=== PATIENT | female | born 1965 | race Caucasian/White ===

== ENCOUNTER 2020-09-17 11:40 | Outpatient (REF) | payer MEDICARE, MEDICAID, SELFPAY | END 2020-09-17 11:41 | disposition home or self-care (01) | LOC: HO.LNP 11:40 | PROVIDERS: Visit Provider Hospitalist | DX: Z20.828 Contact with and (suspected) exposure to other viral communicable diseases (principal); R07.0 Pain in throat; R05 Cough | CPT/HCPCS: 87635 ==

== ENCOUNTER 2020-12-12 10:58 | Outpatient (REF) | payer MEDICARE, MEDICAID, SELFPAY ==
[2020-12-13 10:31] LABS: BV Int Neg Control Negative (Negative); BV Int Pos Control Positive (Positive)
== END 2020-12-12 10:59 | disposition home or self-care (01) ==
LOC: HO.LAB 10:58
PROVIDERS: PCP Internal Medicine; Visit Provider Advanced Practice Midwife
DX: N89.8 Other specified noninflammatory disorders of vagina (principal)
CPT/HCPCS: 87480; 87510; 87660; 99202

== ENCOUNTER 2020-12-21 11:19 | Outpatient (REF) | payer MEDICARE, MEDICAID, SELFPAY ==
[2020-12-21 14:44] LABS: Alanine Aminotransferase 98 U/L (0-31); Albumin Level 4.3 g/dL (3.5-5.0); Alkaline Phosphatase 82 U/L (39-117); Anion Gap 15 (12-20); Aspartate Amino Transferase 53 U/L (5-31); Bilirubin Direct 0.2 mg/dL (0.0-0.5); Bilirubin Total 0.4 mg/dL (0.0-1.0); Blood Urea Nitrogen 14 mg/dL (9-16); Carbon Dioxide 28 mmol/L (22-29); Chloride 102 mmol/L (96-108); Estimated Glomerular Filt Rate > 60; Glucose Random 108 mg/dL (60-115); Potassium 4.1 mmol/l (3.3-5.1); Sodium 141 mmol/L (135-145); Total Protein 7.8 g/dL (6.5-8.0)
[2020-12-21 14:51] LABS: TSH reflex Free T4 1.87 mIU/mL (0.32-4.0)
[2020-12-23 04:01] LABS: HBS Num1 0.81 mIU/mL (0-7.99); HIV AB/AG Nonreactive (Nonreactive); Hepatitis B Core Antibody Nonreactive (Nonreactive); Hepatitis B Surface Antigen Negative (Negative); ~HepC Num1 0.08 S/CO (0.00-0.79); ~Hepatitis B Surface Antibody NONREACTIVE (Nonreactive); ~Hepatitis C Antibody Nonreactive (Nonreactive)
[2020-12-23 04:15] LABS: Hepatitis A Antibody IgM 0.11 Index (0-0.79); ~Hepatitis A Antibody IgM Nonreactive (Nonreactive)
== END 2020-12-21 11:20 | disposition home or self-care (01) ==
LOC: HO.HMGCLDS 11:19
PROVIDERS: PCP Internal Medicine; Visit Provider Internal Medicine
DX: E03.8 Other specified hypothyroidism (principal); E13.9 Other specified diabetes mellitus without complications; F41.1 Generalized anxiety disorder; J30.9 Allergic rhinitis, unspecified; Z20.2 Contact with and (suspected) exposure to infections with a predominantly sexual mode of transmission; Z79.4 Long term (current) use of insulin
CPT/HCPCS: 36415; 80048; 80076; 84443; 86704; 86706; 86709; 86803; 87340; 87389

== ENCOUNTER → 2021-01-16 10:18 | Outpatient (BNVA) | payer MEDICARE, MEDICAID, SELFPAY | PROVIDERS: PCP Internal Medicine; Visit Provider Advanced Practice Midwife | DX: L29.2 Pruritus vulvae (principal) | CPT/HCPCS: 99212 ==

== ENCOUNTER 2021-02-11 16:48 | Emergency (ER) | payer MEDICARE, MEDICAID, SELFPAY ==
--- NOTE | ~2021-02-11 | XR_ITS ---
EXAMINATION: XR CHEST CLINICAL INFORMATION: Chest pain COMPARISON: None TECHNIQUE: Frontal portable view of the chest was obtained. 6:23 PM FINDINGS: No significant abnormality is noted involving the heart, lungs, mediastinum, bony thorax or soft tissues. XR/XR chest 1V IMPRESSION: Unremarkable examination.
--- NOTE | 2021-02-11 16:51 | ECG_ITS ---
Test Reason : CP Blood Pressure : / mmHG Vent. Rate : 066 BPM Atrial Rate : 066 BPM P-R Int : 164 ms QRS Dur : 086 ms QT Int : 414 ms P-R-T Axes : 062 -31 015 degrees QTc Int : 434 ms Normal sinus rhythm with sinus arrhythmia Left axis deviation Abnormal ECG When compared with ECG of 13-MAR-2018 02:49, No significant change was found Referred By: Uriel Jhaveri Electronically Signed By:RICKY FLORES MD
[2021-02-11 17:04] VITALS: BP 136/91; PULSE 71; RESP 18; TEMP 36.4; O2SAT 95; BMI 34.0
[2021-02-11 18:04] VITALS: BP 129/85; PULSE 61; RESP 20; TEMP 36.8; O2SAT 96
[2021-02-11 18:30] LABS: MANUAL DIFF FLAG NO
--- NOTE | 2021-02-11 18:31 | ED.CHESTPAIN ---
HPI - Chest Pain General Chief Complaint: Chest Pain Stated Complaint: Chest pain Time Seen by Provider: 02/11/21 18:08 Source: patient Mode of arrival: ambulatory Limitations: no limitations History of Present Illness HPI narrative: Patient presents to the ED for epigastric/under left breast pain since last Thursday night. Patient describes pain as acid burning sensation. Patient states no shortness of breath, swelling of lower extremities, calf pain, coughing up blood, fever, or chills. Related Data Home Medications Medication Instructions Recorded Confirmed clotrimazole-betamethasone 1 1 applic TOPICAL BID 09/17/20 12/19/20 %-0.05 % topical cream escitalopram oxalate 10 mg tablet 3 mg PO Q OTHER DAY PRN 09/17/20 12/19/20 ketoconazole 2 % topical cream applic TOPICAL 09/17/20 12/19/20 levothyroxine 75 mcg tablet 75 mcg PO DAILY 09/17/20 12/19/20 montelukast 10 mg tablet 10 mg PO DAILY 09/17/20 12/19/20 omeprazole 20 mg capsule,delayed 20 mg PO DAILY 09/17/20 12/19/20 release oxybutynin chloride 10 mg 10 mg PO DAILY 09/17/20 12/19/20 tablet,extended release 24 hr Previous Rx's Medication Instructions Recorded albuterol sulfate 90 mcg/actuation 1 inh INHALATION Q6H PRN #18 g 10/05/20 aerosol inhaler cetirizine 5 mg-pseudoephedrine ER 1 tab PO Q12H PRN #60 tab 10/10/20 120 mg tablet,extended release,12hr fluticasone propionate 50 2 spray INTRANASAL DAILY #9.9 ml 10/10/20 mcg/actuation nasal spray,suspension oxymetazoline 0.05 % nasal mist 2 spray INTRANASAL Q12H PRN 3 Days 10/10/20 #15 ml loratadine 10 mg tablet 10 mg PO DAILY #30 tab 01/10/21 famotidine [Pepcid] 20 mg PO BID 15 Days #30 tab 02/11/21 Allergies Allergy/AdvReac Type Severity Reaction Status Date / Time paroxetine [From PAXIL] Allergy Severe BAD Verified 01/25/21 09:03 REACTION - HALLUCINATING varenicline [From CHANTIX] Allergy Severe BAD Verified 01/25/21 09:03 REACTION - HALLUCINATING, redness and itching Review of Systems Review of Systems: Yes all other systems are reviewed and are negative Constitutional: Constitutional: Reports as per HPI and Reports no additional constitutional complaints Eyes: Eyes: Reports as per HPI and Reports no additional eye complaints ENT: Reports system reviewed and no additional complaints, except as documented and Reports as per HPI Cardiovascular: Cardiovascular: Reports as per HPI and Reports no additional cardiovascular complaints Respiratory: Respiratory: Reports as per HPI and Reports no additional respiratory complaints Gastrointestinal: Gastrointestinal: Reports no additional gastrointestinal complaints and Reports abdominal pain (Epigastric) Genitourinary: Genitourinary: Reports no additional female genitourinary complaints and Reports as per HPI Musculoskeletal: Musculoskeletal: Reports no additional musculoskeletal complaints and Reports as per HPI Neurologic: Reports system reviewed and no additional complaints, except as documented and Reports as per HPI Psychiatric: Psychiatric: Reports no additional psychiatric complaints and Reports as per HPI [facility] Past Medical History Surgical History History of elbow surgery History of tubal ligation Hx of cholecystectomy Family History Family History Mother Brain aneurysm Maternal Aunt Lung cancer Maternal Uncle Cancer Father Cancer of prostate Social History Social History Alcohol intake: never Smoking Status: Former smoker Smoked in Last 30 Days: No Use of substances other than those prescribed or required for medical reasons: No Advance Directives: No Advance Directives Information Provided: No Physical Exam Vital Signs: Vital Signs: Last Vital Signs Temp 98.5 F 02/11/21 20:23 Pulse 66 02/11/21 20:23 Resp 16 02/11/21 20:23 BP 125/87 02/11/21 20:23 Pulse Ox 96 02/11/21 20:23 Body Mass Index 34.0 Const: General: cooperative, healthy appearing, comfortable, no acute distress, well developed and alert Orientation/consciousness: patient oriented x3 HENMT: Head: Yes normal to inspection, Yes No palpable skull fracture present, Yes normocephalic and Yes atraumatic Eyes: General: appearance normal, both eyes and all related structures Neck: Neck: Yes normal visual inspection, Yes full ROM, Yes no lymphadenopathy, Yes no meningeal signs, Yes trachea midline, Yes supple and No tender Chest: Other: Both breast negative for swelling, redness, nipple discharge, or axillary lymphadenopathy. Chest palpation & inspection: normal inspection of the chest and normal palpation of entire chest wall Resp: Effort & Inspection: normal respiratory effort and able to speak in complete sentences Auscultation: clear to auscultation bilaterally Cardio: Jugular venous distension: no JVD Heart sounds: S1 normal heart sound present and S2 normal heart sound present GI: Inspection: Yes normal to inspection and No abdominal wall ecchymosis Palpation (GI): Soft to palpation, not firm, Tenderness to palpation present (GI) (Mild) in the epigastrum; not at McBurney's point, not periumbilically, not suprapubicly, Oshea's sign negative, obturator sign negative, psoas sign negative, with no rebound tenderness and Rovsing's sign negative, no guarding and not rigid : General: No CVA tenderness and Yes no CVA tenderness Back/Spine/Pelvis: Back: no CVA tenderness, No CVA tenderness and No back tenderness Skin: General skin exam: no rashes or lesions noted and elasticity normal Neuro: General: patient oriented x3, no meningeal signs and CN's II-XI intact bilaterally Course Course Course Narrative: History physical exam sounds like GERD exacerbation, but due to age patient will have a lease EKG 1 troponin for epigastric pain that started since last Thursday. Patient will be given GI cocktail Reevaluation(s) Reevaluation #1: Patient EKG normal and no new changes. Patient troponin came back negative after 4 days of epigastric pain. Patient states epigastric pain resolved after receiving GI cocktail. Chest x-ray is normal. Patient is taking omeprazole. Patient will be prescribed Pepcid. D-dimer negative. Wells score 0. Chest x-ray came back normal. Patient labs came at baseline. Slight elevation in liver enzymes due to fatty liver. Time: 21:04 MDM - Chest Pain MDM Narrative Medical decision making narrative: GERD Lab Data Result diagrams: 02/11/21 18:15 02/11/21 18:51 Labs: Lab Results 02/11/21 02/11/21 02/11/21 Range/Units 18:15 18:15 18:15 WBC 10.1 (4.8-10.8) X10*3/uL RBC 5.22 (4.20-5.50) X10*6/uL Hgb 14.3 (12.0-16.0) g/dl Hct 44.1 (37-47) % MCV 84.5 (80-98) fL MCH 27.4 (27.0-33.0) pg MCHC 32.4 (31.0-35.0) g/dl RDW 13.3 (11.0-16.0) % Plt Count 242 (160-400) X10*3/uL MPV 9.4 (9.4-12.3) fL Immature Gran % (Auto) 0.3 (0.0-0.4) % Neut % (Auto) 52.6 (45-73) % Lymph % (Auto) 37.7 (20-40) % [place] % (Auto) 7.1 (2-11) % Eos % (Auto) 1.7 (0-4) % Baso % (Auto) 0.6 (0-2) % Lymph # (Auto) 3.8 (1.2-4.9) X10*3/uL [place] # (Auto) 0.7 (0.1-1.2) X10*3/uL Eos # (Auto) 0.2 (0.0-0.4) X10*3/uL Baso # (Auto) 0.1 (0.0-0.2) X10*3/uL Abs Immat Gran (auto) 0.03 (0.00-0.03) X10*3/uL Absolute Neuts (auto) 5.3 (2.0-8.3) X10*3/uL Absolute Nucleated RBC 0.000 (0.0-0.012) X10*3/uL Nucleated RBC % (auto) 0.0 (0.0-0.2) /100WBC PT (10.8-13.0) SEC INR (0.9-1.1) APTT (24.1-38.0) SEC D-Dimer NG/ML Hold Blue Top SEE NOTE Sodium (135-145) mmol/L Potassium (3.3-5.1) mmol/L Chloride (96-108) mmol/L Carbon Dioxide (22-29) mmol/L Anion Gap (12-20) BUN (9-16) mg/dL Creatinine (0.5-1.4) mg/dL Estim Creat Clear Calc Estimated GFR Random Glucose (60-115) mg/dL Calcium (8.4-10.2) mg/dL Total Bilirubin (0.0-1.0) mg/dL Direct Bilirubin (0.0-0.5) mg/dL AST (5-31) U/L ALT (0-31) U/L Alkaline Phosphatase (39-117) U/L Troponin I High Sens < 3.5 (<3.5-17.0) ng/L Total Protein (6.5-8.0) g/dL Albumin (3.5-5.0) g/dL Lipase (8-78) U/L Urine Color Urine Appearance Urine pH (5.0-8.0) Ur Specific [place] (1.005-1.025) Urine Protein (NEG-TRACE) MG/DL Urine Glucose (UA) (NEG) MG/DL Urine Ketones (NEG) MG/DL Urine Blood (NEG) Urine Nitrite (NEG) Ur Leukocyte Esterase (NEG) 02/11/21 02/11/21 02/11/21 Range/Units 18:51 18:51 19:21 WBC (4.8-10.8) X10*3/uL RBC (4.20-5.50) X10*6/uL Hgb (12.0-16.0) g/dl Hct (37-47) % MCV (80-98) fL MCH (27.0-33.0) pg MCHC (31.0-35.0) g/dl RDW (11.0-16.0) % Plt Count (160-400) X10*3/uL MPV (9.4-12.3) fL Immature Gran % (Auto) (0.0-0.4) % Neut % (Auto) (45-73) % Lymph % (Auto) (20-40) % [place] % (Auto) (2-11) % Eos % (Auto) (0-4) % Baso % (Auto) (0-2) % Lymph # (Auto) (1.2-4.9) X10*3/uL [place] # (Auto) (0.1-1.2) X10*3/uL Eos # (Auto) (0.0-0.4) X10*3/uL Baso # (Auto) (0.0-0.2) X10*3/uL Abs Immat Gran (auto) (0.00-0.03) X10*3/uL Absolute Neuts (auto) (2.0-8.3) X10*3/uL Absolute Nucleated RBC (0.0-0.012) X10*3/uL Nucleated RBC % (auto) (0.0-0.2) /100WBC PT 12.1 (10.8-13.0) SEC INR 1.0 (0.9-1.1) APTT 32.8 (24.1-38.0) SEC D-Dimer < 200 NG/ML Hold Blue Top Sodium 137 (135-145) mmol/L Potassium 4.0 (3.3-5.1) mmol/L Chloride 103 (96-108) mmol/L Carbon Dioxide 24 (22-29) mmol/L Anion Gap 14 (12-20) BUN 15 (9-16) mg/dL Creatinine 0.82 (0.5-1.4) mg/dL Estim Creat Clear Calc 95.5 Estimated GFR > 60 Random Glucose 100 (60-115) mg/dL Calcium 9.4 (8.4-10.2) mg/dL Total Bilirubin 0.6 (0.0-1.0) mg/dL Direct Bilirubin 0.2 (0.0-0.5) mg/dL AST 103 H (5-31) U/L ALT 119 H (0-31) U/L Alkaline Phosphatase 84 (39-117) U/L Troponin I High Sens (<3.5-17.0) ng/L Total Protein 7.4 (6.5-8.0) g/dL Albumin 4.1 (3.5-5.0) g/dL Lipase 31 (8-78) U/L Urine Color YELLOW Urine Appearance CLEAR Urine pH 6.0 (5.0-8.0) Ur Specific [place] 1.025 (1.005-1.025) Urine Protein NEG (NEG-TRACE) MG/DL Urine Glucose (UA) NEG (NEG) MG/DL Urine Ketones NEG (NEG) MG/DL Urine Blood NEG (NEG) Urine Nitrite NEG (NEG) Ur Leukocyte Esterase NEG (NEG) ECG Data ECG #1: Interpretation: Normal sinus rhythm. Ventricular rate 66. Pr interval 164. QRS 86. QTC 434. Negative STEMI Discharge Plan Discharge Clinical Impression: GERD (gastroesophageal reflux disease) Patient Disposition: Home, Self-Care Instructions: Gastroesophageal Reflux Disease (ED) Additional Instructions: Return to the ED immediately for any worsening abdominal pain, radiating chest pain, shortness of breath, coughing up blood, fever, chills, dysuria, hematuria, flank pain, weakness, dizziness, passing out, chest pain on inspiration, swelling of lower extremities, calf pain, or any other concerning symptoms. Prescriptions: New famotidine [Pepcid] 20 mg tablet 20 mg PO BID 15 Days Qty: 30 RF: 0 No Action loratadine 10 mg tablet 10 mg PO DAILY Qty: 30 RF: 2 montelukast 10 mg tablet 10 mg PO DAILY RF: 0 omeprazole 20 mg capsule,delayed release(DR/EC) 20 mg PO DAILY RF: 0 oxybutynin chloride 10 mg tablet extended release 24hr 10 mg PO DAILY RF: 0 escitalopram oxalate 10 mg tablet 3 mg PO Q OTHER DAY PRNRF: 0 levothyroxine 75 mcg tablet 75 mcg PO DAILY RF: 0 ketoconazole 2 % cream topical RF: 0 clotrimazole-betamethasone 1-0.05 % cream 1 applic topical BID RF: 0 albuterol sulfate [Ventolin HFA] 90 mcg/actuation HFA aerosol inhaler 1 inh inhalation Q6H PRN (Reason: shortness of breath or wheezing) Qty: 18 RF: 2 cetirizine-pseudoephedrine [Zyrtec-D] 5-120 mg tablet extended release 12 hr 1 tab PO Q12H PRN (Reason: allergy symptoms) Qty: 60 RF: 0 Afrin (oxymetazoline) 0.05 % mist 2 spray intranasal Q12H PRN (Reason: nasal congestion) 3 Days Qty: 15 RF: 0 fluticasone propionate [Flonase Allergy Relief] 50 mcg/actuation spray,suspension 2 spray intranasal DAILY Qty: 9.9 RF: 0 Referrals: David Diaz MD [Primary Care Provider] - 2 days (GERD exacerbation. EKG shows no new changes. Troponin negative) Interventions: ED Discharge Assessment Last Done: 02/11/21 21:16 Discharge Date/Time: 02/11/21 21:16 Print Language: Macedonian
[2021-02-11 18:32] LABS: Basophils Absolute Auto 0.1 X10*3/uL (0.0-0.2); Basophils Percent Auto 0.6 % (0-2); Eosinophils Absolute Auto 0.2 X10*3/uL (0.0-0.4); Eosinophils Percent Auto 1.7 % (0-4); Hematocrit 44.1 % (37-47); Hemoglobin 14.3 g/dl (12.0-16.0); Imm Gran Abs Auto 0.03 X10*3/uL (0.00-0.03); Imm Gran Pct Auto 0.3 % (0.0-0.4); Lymphocytes Absolute Auto 3.8 X10*3/uL (1.2-4.9); Lymphocytes Percent Auto 37.7 % (20-40); Mean Corpuscular HGB Conc 32.4 g/dl (31.0-35.0); Mean Corpuscular Hemoglobin 27.4 pg (27.0-33.0); Mean Corpuscular Volume 84.5 fL (80-98); Mean Platelet Volume 9.4 fL (9.4-12.3); Monocytes Absolute Auto 0.7 X10*3/uL (0.1-1.2); Monocytes Percent Auto 7.1 % (2-11); Neutrophils Absolute Auto 5.3 X10*3/uL (2.0-8.3); Neutrophils Percent Auto 52.6 % (45-73); Platelet Count 242 X10*3/uL (160-400); Red Blood Count 5.22 X10*6/uL (4.20-5.50); Red Cell Distribution Width 13.3 % (11.0-16.0); White Blood Count 10.1 X10*3/uL (4.8-10.8)
[2021-02-11] MEDS: Famotidine/PF 20 MG/2 ML VIAL IVPUSH (18:43)
[2021-02-11] MEDS: Lidocaine HCl Viscous 2 % 15 ML SOLUTION MUCOUS MEM (18:44)
[2021-02-11] MEDS: Magnesium Hydrox/Alum Hydrox 30 ML ORAL.SUSP PO (18:44)
[2021-02-11] MEDS: PHENobarb/Hyoscy/Atropine/Scop 10 ML ELIXIR PO (18:44)
[2021-02-11 19:07] LABS: Troponin-I High Sensitivity < 3.5 ng/L (<3.5-17.0)
[2021-02-11 19:15] LABS: Prothrombin Time 12.1 SEC (10.8-13.0)
[2021-02-11 19:18] LABS: Partial Thromboplastin Time 32.8 SEC (24.1-38.0)
[2021-02-11 19:20] LABS: D Dimer < 200 NG/ML
[2021-02-11 19:30] LABS: Glucose Urine UA NEG (NEG); Leukocyte Esterase Urine NEG (NEG); Nitrite Urine NEG (NEG); Specific Gravity - Urine 1.025 (1.005-1.025); Urine Blood NEG (NEG); Urine Ketones NEG (NEG); Urine Protein NEG (NEG-TRACE)
[2021-02-11 19:37] LABS: Alanine Aminotransferase 119 U/L (0-31); Albumin Level 4.1 g/dL (3.5-5.0); Alkaline Phosphatase 84 U/L (39-117); Anion Gap 14 (12-20); Aspartate Amino Transferase 103 U/L (5-31); Bilirubin Direct 0.2 mg/dL (0.0-0.5); Bilirubin Total 0.6 mg/dL (0.0-1.0); Blood Urea Nitrogen 15 mg/dL (9-16); Calcium 9.4 mg/dL (8.4-10.2); Carbon Dioxide 24 mmol/L (22-29); Chloride 103 mmol/L (96-108); Creatinine Clr Calc Pharmacy 95.5; Estimated Glomerular Filt Rate > 60; Glucose Random 100 mg/dL (60-115); Lipase 31 U/L (8-78); Sodium 137 mmol/L (135-145); Total Protein 7.4 g/dL (6.5-8.0)
[2021-02-11 19:39] VITALS: BP 119/53; PULSE 66; RESP 19; TEMP 36.5; O2SAT 95
[2021-02-11 19:51] LABS: Appearance Urine CLEAR; Color Urine YELLOW
[2021-02-11 20:23] VITALS: BP 125/87; PULSE 66; RESP 16; TEMP 36.9; O2SAT 96
[2021-02-11 20:38] VITALS: PULSE 87
== END 2021-02-11 21:16 | disposition home or self-care (01) ==
PROVIDERS: Physician Assistant; Emergency Provider Emergency Medicine; PCP Internal Medicine
DX: K21.9 Gastro-esophageal reflux disease without esophagitis (principal); Z90.49 Acquired absence of other specified parts of digestive tract
CPT/HCPCS: 36415; 71045; 80053; 80076; 81003; 83690; 84484; 85025; 85379; 85610; 85730; 93005; 99285

== ENCOUNTER 2021-05-06 14:51 | Outpatient (REF) | payer MEDICARE, MEDICAID, SELFPAY ==
[2021-05-06 18:08] LABS: Alanine Aminotransferase 159 U/L (0-31); Albumin Level 4.4 g/dL (3.5-5.0); Alkaline Phosphatase 91 U/L (39-117); Aspartate Amino Transferase 140 U/L (5-31); Bilirubin Direct 0.2 mg/dL (0.0-0.5); Bilirubin Total 0.6 mg/dL (0.0-1.0); C Reactive Protein 0.77 mg/dL (< or = 0.50); Gamma Glutamyl Transpeptidase 127 U/L (7-33); Total Protein 7.5 g/dL (6.5-8.0)
[2021-05-06 18:19] LABS: Erythrocyte Sedimentation Rate 13 MM/HR (0-20)
[2021-05-06 18:23] LABS: Ferritin 257 ng/mL (10-250)
[2021-05-08 09:13] LABS: HBS Num1 0.09 mIU/mL (0-7.99); HIV AB/AG Nonreactive (Nonreactive); HIV Num 1 0.07 S/CO (0.00-0.99); Hepatitis A Antibody IgM 0.28 Index (0-0.79); ~Hepatitis A Antibody IgM Nonreactive (Nonreactive); ~Hepatitis B Surface Antibody NONREACTIVE (Nonreactive)
[2021-05-08 09:55] LABS: HBc Num1 0.08 S/CO (0.00-0.79); HBsAGNum1 0.19 S/CO (0.00-0.99); Hepatitis B Core Antibody Nonreactive (Nonreactive); Hepatitis B Surface Antigen Negative (Negative); ~HepC Num1 0.05 S/CO (0.00-0.79); ~Hepatitis C Antibody Nonreactive (Nonreactive)
[2021-05-08 10:52] LABS: Alpha Fetoprotein 2.8 ng/mL
[2021-05-09 08:18] LABS: Mitochondrial Antibodies NEGATIVE (NEGATIVE)
[2021-05-09 19:41] LABS: Ceruloplasmin 31 mg/dL (18-53)
[2021-05-11 10:56] LABS: Smooth Muscle Antibody <20 U (<20)
== END 2021-05-06 14:52 | disposition home or self-care (01) ==
LOC: HO.LAB 14:51
PROVIDERS: PCP Internal Medicine; Visit Provider Nurse Practitioner Family
DX: R79.89 Other specified abnormal findings of blood chemistry (principal); R74.8 Abnormal levels of other serum enzymes
CPT/HCPCS: 36415; 80076; 82105; 82390; 82728; 82977; 85652; 86140; 86255; 86256; 86704; 86706; 86709; 86803; 87340; 87389; 99202

== ENCOUNTER 2021-05-17 08:58 | Outpatient (REF) | payer MEDICARE, MEDICAID, SELFPAY ==
--- NOTE | ~2021-05-17 | FL_ITS ---
EXAMINATION: FL BARIUM SWALLOW CLINICAL INFORMATION: Dysphagia. COMPARISON: None TECHNIQUE: Barium swallow examination is performed using fluoroscopic evaluation in addition to multiple fluoroscopic spot views. The patient is imaged both upright and prone and using both thick and thin sulfate along with effervescent granules. Fluoroscopy time: 1.5 minutes DAP: 13.42 Gycm2 Images: 48 FINDINGS: Following oral administration of thin, thick barium and barium-coated turkey, there is normal propagation of bolus from oral cavity through the pharynx, esophagus into stomach without any evidence of obstruction, narrowing or stricture. The cervical esophageal and gastroesophageal junction is widely patent. Following oral administration of barium-coated turkey as solid food, there is normal oral mastication with normal propagation od bolus from the oral cavity through the pharynx, esophagus into stomach without any obstruction. On placing patient prone lying and oral administration of thin barium, there is good distention of the entire esophagus without any evidence of intraluminal filling defect or extrinsic compression. There is no gastroesophageal reflux or hiatal hernia seen. FL/FL barium swallow IMPRESSION: Unremarkable barium swallow exam.
== END 2021-05-17 08:59 | disposition home or self-care (01) ==
LOC: HO.XRAY 08:58
PROVIDERS: PCP Internal Medicine; Visit Provider Otolaryngology
DX: R13.10 Dysphagia, unspecified (principal)
CPT/HCPCS: 74220

== ENCOUNTER 2021-06-26 09:18 | Outpatient (REF) | payer MEDICARE, MEDICAID, SELFPAY ==
[2021-06-27 10:29] LABS: BV Int Neg Control Negative (Negative); BV Int Pos Control Positive (Positive)
== END 2021-06-26 09:19 | disposition home or self-care (01) ==
LOC: HO.LAB 09:18
PROVIDERS: PCP Internal Medicine; Visit Provider Advanced Practice Midwife
DX: Z01.411 Encounter for gynecological examination (general) (routine) with abnormal findings (principal); N89.8 Other specified noninflammatory disorders of vagina; R21 Rash and other nonspecific skin eruption
CPT/HCPCS: 87480; 87510; 87660

== ENCOUNTER 2021-06-27 09:58 | Outpatient (REF) | payer MEDICARE, MEDICAID, SELFPAY | END 2021-06-27 09:59 | disposition home or self-care (01) | LOC: HO.LAB 09:58 | PROVIDERS: PCP Internal Medicine; Referring Provider Internal Medicine; Visit Provider Surgery | DX: L91.8 Other hypertrophic disorders of the skin (principal) | CPT/HCPCS: 11200; 88304; 88305; 99212 ==

== ENCOUNTER → 2021-07-08 10:18 | Outpatient (BNVA) | payer MEDICARE, MEDICAID, SELFPAY | PROVIDERS: PCP Internal Medicine; Referring Provider Internal Medicine; Visit Provider Nurse Practitioner Family | DX: K59.00 Constipation, unspecified (principal); K75.81 Nonalcoholic steatohepatitis (NASH); K74.60 Unspecified cirrhosis of liver; R79.89 Other specified abnormal findings of blood chemistry | CPT/HCPCS: 99212 ==

== ENCOUNTER 2021-07-24 10:45 | Outpatient (REF) | payer MEDICARE, MEDICAID, SELFPAY ==
--- NOTE | ~2021-07-24 | US_ITS ---
EXAMINATION: US COMPLETE ABDOMEN WITH LIVER ELASTOGRAPHY CLINICAL INFORMATION: Abnormal serum enzymes. COMPARISON: None. TECHNIQUE: Real-time imaging of the abdominal viscera. Noninvasive ultrasound liver fibrosis assessment is performed using Yordan ElastPQ point quantification shear wave elastography (pSWE) with a C5-2 MHz transducer. Multiple elastography samples are obtained. FINDINGS: PANCREAS: The pancreas is partially obscured by overlying gas. ABDOMINAL AORTA: The distal abdominal aorta is not well seen. The proximal and midabdominal aorta is normal caliber. INFERIOR VENA CAVA: Visualized portions are normal. LIVER: The liver demonstrates an enlarged size, normal contour and increased echogenicity. No focal lesion or intrahepatic biliary duct dilatation. The right lobe measures 20.5 cm in length. The left lobe measures 14.9 cm in length. Portal flow is antegrade. Shear wave liver elastography median stiffness is 1.59 m/s (reference: normal median stiffness is 1.3 m/s or less). IQR/median stiffness to assess sampling precision is 0.25 (reference: good quality data set is IQR/median stiffness of 0.15 or less). GALLBLADDER: The gallbladder has been surgically removed. COMMON BILE DUCT: Normal in caliber measuring 0.5 cm in diameter. RIGHT KIDNEY: Normal. No hydronephrosis. No renal calculi or focal parenchymal lesions. The kidney measures 10.6 cm in maximum dimension. LEFT KIDNEY: Normal. No hydronephrosis. No renal calculi or focal parenchymal lesions. The kidney measures 10.0 cm in maximum dimension. SPLEEN: Normal. The spleen measures 9.8 cm in maximum dimension. FREE FLUID: None. US/US abdomen comp w elastography IMPRESSION: 1. Mild hepatic steatosis with mild enlargement. 2. Liver elastography: Median liver stiffness measures 1.59 m/s suggestive of cACLD ruled out. REFERENCE: Society of Radiologists in Ultrasound Liver Stiffness Thresholds (2020): LIVER STIFFNESS THRESHOLDS: *Liver Stiffness equal or less than 1.3 m/s: High probability of being normal. *Liver Stiffness less than 1.7 m/s: In the absence of other known clinical signs, rules out compensated advanced chronic liver disease. *Liver Stiffness 1.7-2.1 m/s: Suggestive of compensated advanced chronic liver disease but need further test for confirmation. *Liver Stiffness over 2.1 m/s: Rules in compensated advanced chronic liver disease. *Liver Stiffness over 2.4 m/s: Suggestive of clinically significant portal hypertension. QUALITY OF DATA SET: *IQR/Median value equal or less than 0.15 implies a quality data set. *IQR/Median value over 0.15 implies a poor quality data set. SIGNIFICANT CHANGE FROM PRIOR EXAM: Significant change if liver stiffness measurement is 10% or greater from prior exam. OTHER CONSIDERATIONS: The stage of liver fibrosis may be overestimated in the setting of acute hepatitis, liver inflammation, elevated liver function tests, hepatic vascular congestion, obstructive cholestasis, non-fasting state, and infiltrative diseases such as amyloidosis and lymphoma. In some patients with NAFLD, the liver stiffness thresholds for compensated advanced chronic liver disease may be lower. In causes other than viral hepatitis and NAFLD, liver stiffness thresholds are not well established.
== END 2021-07-24 10:46 | disposition home or self-care (01) ==
LOC: HO.US 10:45
PROVIDERS: Visit Provider Nurse Practitioner Family
DX: R74.8 Abnormal levels of other serum enzymes (principal)
CPT/HCPCS: 76705; 76981

== ENCOUNTER → 2021-07-25 13:34 | Outpatient (BNVA) | payer MEDICARE, MEDICAID, SELFPAY | PROVIDERS: PCP Internal Medicine; Visit Provider Internal Medicine | DX: J45.20 Mild intermittent asthma, uncomplicated (principal) | CPT/HCPCS: 99212 ==

== ENCOUNTER 2021-08-01 10:44 | Outpatient (REF) | payer MEDICARE, MEDICAID, SELFPAY ==
--- NOTE | 2021-08-01 17:15 | PFT_ITS ---
Forced vital capacity is moderately decreased. FEV1, [id number], and MVV are normal. Post bronchodilator therapy, no change noted. Total lung capacity and residual volume slightly decreased. Diffusion capacity normal. CONCLUSION: A mild degree of restrictive pulmonary disorder. No significant obstructive airway disorder and no response to bronchodilator therapy. MD SUSHIL Tavares/GAMALL / [phone]
== END 2021-08-01 10:45 | disposition home or self-care (01) ==
LOC: HO.RESP 10:44
PROVIDERS: PCP Internal Medicine; Visit Provider Internal Medicine
DX: J45.909 Unspecified asthma, uncomplicated (principal)
CPT/HCPCS: 94060; 94727; 94729

== ENCOUNTER → 2021-08-12 12:50 | Outpatient (BNVA) | payer MEDICARE, MEDICAID, SELFPAY | PROVIDERS: PCP Internal Medicine; Visit Provider Internal Medicine | DX: J30.9 Allergic rhinitis, unspecified (principal); J98.4 Other disorders of lung; G47.30 Sleep apnea, unspecified; E66.9 Obesity, unspecified | CPT/HCPCS: 99212 ==

== ENCOUNTER 2021-08-21 11:33 | Outpatient (REF) | payer MEDICARE, MEDICAID, SELFPAY ==
[2021-08-21 13:44] LABS: Hematocrit 42.8 % (37-47); Hemoglobin 13.7 g/dl (12.0-16.0)
[2021-08-21 14:13] LABS: Alanine Aminotransferase 93 U/L (0-31); Albumin Level 4.1 g/dL (3.5-5.0); Alkaline Phosphatase 90 U/L (39-117); Aspartate Amino Transferase 83 U/L (5-31); Bilirubin Direct 0.2 mg/dL (0.0-0.5); Bilirubin Total 0.3 mg/dL (0.0-1.0)
[2021-08-21 14:34] LABS: Ferritin 173 ng/mL (10-250); TSH reflex Free T4 3.51 uIU/mL (0.32-4.0)
== END 2021-08-21 11:34 | disposition home or self-care (01) ==
LOC: HO.HMGCLDS 11:33
PROVIDERS: PCP Internal Medicine; Visit Provider Internal Medicine
DX: E03.8 Other specified hypothyroidism (principal); N32.9 Bladder disorder, unspecified; R79.89 Other specified abnormal findings of blood chemistry
CPT/HCPCS: 36415; 80076; 82728; 84443; 85014; 85018

== ENCOUNTER 2021-08-29 15:32 | Outpatient (REF) | payer MEDICARE, MEDICAID, SELFPAY ==
--- NOTE | ~2021-08-29 | MM_ITS ---
EXAMINATION: MM SCREENING DIGITAL BREAST TOMOSYNTHESIS, BILATERAL CLINICAL INFORMATION: Screening. Asymptomatic. The lifetime risk of breast cancer based on the Tyrer-Cuzick Model is 6%. COMPARISON: Mammography: 05/22/2020, 03/28/2019, 03/02/2018, 01/18/2016 TECHNIQUE: Digital breast tomosynthesis is performed in both the craniocaudal and mediolateral oblique views along with computer-aided detection (CAD). Synthesized 2D images are generated from the tomosynthesis. Additional left MLO view is provided. FINDINGS: The breasts are heterogeneously dense, which may obscure small masses (ACR BI-RADS breast composition Category c). Fibronodular parenchymal pattern is present with scattered asymmetries similar to prior studies. There is no significant mass or architectural abnormality. No abnormal calcifications. The axilla and skin contours are unremarkable. MM/MM tomosynthesis screening BI IMPRESSION: No significant changes from prior exams. ASSESSMENT: BI-RADS 2: Benign RECOMMENDATION: Routine annual mammography screening. This patient's information was entered into a reminder system with a target due date for their next mammogram.
== END 2021-08-29 15:33 | disposition home or self-care (01) ==
LOC: HO.MAMMO 15:32
PROVIDERS: PCP Internal Medicine; Visit Provider Advanced Practice Midwife
DX: Z12.31 Encounter for screening mammogram for malignant neoplasm of breast (principal)
CPT/HCPCS: 77063; 77067

== ENCOUNTER 2021-12-31 11:13 | Outpatient (REF) | payer MEDICARE, MEDICAID, SELFPAY ==
[2021-12-31 13:03] LABS: Hematocrit 45.1 % (37.0-47.0); Hemoglobin 14.7 g/dl (12.0-16.0); Mean Corpuscular HGB Conc 32.6 g/dl (31.0-35.0); Mean Corpuscular Hemoglobin 27.5 pg (27.0-33.0); Mean Corpuscular Volume 84.3 fL (80.0-98.0); Mean Platelet Volume 9.6 fL (9.4-12.3); Platelet Count 228 X10*3/uL (160-400); Red Blood Count 5.35 X10*6/uL (4.20-5.50); White Blood Count 10.3 X10*3/uL (4.8-10.8)
[2021-12-31 13:34] LABS: Alanine Aminotransferase 99 U/L (0-31); Albumin Level 4.2 g/dL (3.5-5.0); Alkaline Phosphatase 91 U/L (39-117); Anion Gap 12 (12-20); Aspartate Amino Transferase 89 U/L (5-31); Bilirubin Direct 0.3 mg/dL (0.0-0.5); Bilirubin Total 0.6 mg/dL (0.0-1.0); Blood Urea Nitrogen 14 mg/dL (9-16); Calcium 9.6 mg/dL (8.4-10.2); Carbon Dioxide 25 mmol/L (22-29); Chloride 106 mmol/L (96-108); Estimated Glomerular Filt Rate > 60; Glucose Random 174 mg/dL (60-115); Potassium 4.3 mmol/L (3.3-5.1); Sodium 139 mmol/L (135-145); Total Protein 7.6 g/dL (6.5-8.0)
[2021-12-31 13:55] LABS: TSH reflex Free T4 4.69 uIU/mL (0.32-4.0)
[2021-12-31 14:26] LABS: Free T4 (Free Thyroxine) 0.86 ng/dL (0.71-1.85)
[2022-01-04 13:02] LABS: Vitamin D 25-OH, D2 <4 ng/mL; Vitamin D 25-OH, D3 24 ng/mL; Vitamin D 25-OH, Total 24 ng/mL (30-100)
== END 2021-12-31 11:14 | disposition home or self-care (01) ==
LOC: HO.LAB 11:13
PROVIDERS: PCP Internal Medicine; Referring Provider Internal Medicine; Visit Provider Nurse Practitioner Family
DX: K21.9 Gastro-esophageal reflux disease without esophagitis (principal); R79.89 Other specified abnormal findings of blood chemistry; K76.0 Fatty (change of) liver, not elsewhere classified; K58.2 Mixed irritable bowel syndrome; K62.89 Other specified diseases of anus and rectum; E55.9 Vitamin D deficiency, unspecified
CPT/HCPCS: 36415; 80053; 82248; 82306; 84439; 84443; 85027; 99212

== ENCOUNTER 2022-01-11 10:17 | Outpatient (REF) | payer MEDICARE, MEDICAID, SELFPAY ==
[2022-01-11 10:53] LABS: Binax Internal Control QC Valid; Binax Now Covid-19 Ag Negative (Negative); Binax Performed by: HO.BONILM
== END 2022-01-11 10:18 | disposition home or self-care (01) ==
LOC: HO.HMGCLDS 10:17
PROVIDERS: Visit Provider Internal Medicine
DX: Z13.89 Encounter for screening for other disorder (principal)

== ENCOUNTER → 2022-02-10 09:52 | Outpatient (BNVA) | payer MEDICARE, MEDICAID, SELFPAY | PROVIDERS: PCP Internal Medicine; Visit Provider Internal Medicine | DX: J98.4 Other disorders of lung (principal); J30.9 Allergic rhinitis, unspecified; G47.30 Sleep apnea, unspecified | CPT/HCPCS: 99212 ==

== ENCOUNTER → 2022-04-07 10:27 | Outpatient (BNVA) | payer MEDICARE, MEDICAID, SELFPAY | PROVIDERS: PCP Internal Medicine; Referring Provider Internal Medicine; Visit Provider Nurse Practitioner Family | DX: K76.0 Fatty (change of) liver, not elsewhere classified (principal); K58.2 Mixed irritable bowel syndrome; K62.5 Hemorrhage of anus and rectum | CPT/HCPCS: 99212 ==

== ENCOUNTER 2022-05-05 12:01 | Outpatient (REF) | payer MEDICARE, MEDICAID, SELFPAY ==
[2022-05-05 14:26] LABS: TSH reflex Free T4 3.52 uIU/mL (0.32-4.0)
== END 2022-05-05 12:02 | disposition home or self-care (01) ==
LOC: HO.HMGCLDS 12:01
PROVIDERS: PCP Internal Medicine; Visit Provider Internal Medicine
DX: E03.8 Other specified hypothyroidism (principal)
CPT/HCPCS: 36415; 84443

== ENCOUNTER → 2022-05-22 14:24 | Outpatient (BNVA) | payer MEDICARE, MEDICAID, SELFPAY | PROVIDERS: PCP Internal Medicine; Visit Provider Surgery | DX: D17.0 Benign lipomatous neoplasm of skin and subcutaneous tissue of head, face and neck (principal) | CPT/HCPCS: 99212 ==

== ENCOUNTER → 2022-06-20 11:49 | Outpatient (BNVA) | payer MEDICARE, MEDICAID, SELFPAY | PROVIDERS: PCP Internal Medicine; Visit Provider Nurse Practitioner Family | DX: Z01.818 Encounter for other preprocedural examination (principal); K58.2 Mixed irritable bowel syndrome; K76.0 Fatty (change of) liver, not elsewhere classified; R79.89 Other specified abnormal findings of blood chemistry | CPT/HCPCS: 99212 ==

== ENCOUNTER 2022-06-27 13:45 | Outpatient (REF) | payer MEDICARE, MEDICAID, SELFPAY ==
--- NOTE | ~2022-06-27 | US_ITS ---
EXAMINATION: US SOFT TISSUE OF THE NECK CLINICAL INFORMATION: Soft tissue mass posterior neck, possible lipoma. COMPARISON: None TECHNIQUE: Linear transducer grayscale and color Doppler examination of the base of the posterior neck and upper midline back. FINDINGS: No abnormal cystic or solid mass is identified. No edematous change within the soft tissues is seen. No region of abnormal distal sound shadowing. US/US soft tiss head and/or neck IMPRESSION: No ultrasound abnormality in region of patient's lump about the posterior neck/upper back.
== END 2022-06-27 13:46 | disposition home or self-care (01) ==
LOC: HO.HMGCX 13:45
PROVIDERS: Visit Provider Surgery
DX: D17.0 Benign lipomatous neoplasm of skin and subcutaneous tissue of head, face and neck (principal)
CPT/HCPCS: 76536

== ENCOUNTER → 2022-07-02 10:09 | Outpatient (BNVA) | payer MEDICARE, MEDICAID, SELFPAY | PROVIDERS: PCP Internal Medicine; Visit Provider Advanced Practice Midwife | DX: Z01.419 Encounter for gynecological examination (general) (routine) without abnormal findings (principal); N95.1 Menopausal and female climacteric states; R35.0 Frequency of micturition | CPT/HCPCS: 99212 ==

== ENCOUNTER → 2022-07-08 14:53 | Outpatient (BNVA) | payer MEDICARE, MEDICAID, SELFPAY | PROVIDERS: PCP Internal Medicine; Visit Provider Surgery | DX: D17.0 Benign lipomatous neoplasm of skin and subcutaneous tissue of head, face and neck (principal); Z79.899 Other long term (current) drug therapy; Z79.891 Long term (current) use of opiate analgesic | CPT/HCPCS: 99212 ==

== ENCOUNTER → 2022-08-21 10:32 | Outpatient (BNVA) | payer MEDICARE, MEDICAID, SELFPAY | PROVIDERS: PCP Internal Medicine; Visit Provider Internal Medicine | DX: J45.909 Unspecified asthma, uncomplicated (principal); G47.30 Sleep apnea, unspecified; E66.9 Obesity, unspecified; Z68.34 Body mass index [BMI] 34.0-34.9, adult | CPT/HCPCS: 99212 ==

== ENCOUNTER 2022-09-01 11:46 | Outpatient (REF) | payer MEDICARE, MEDICAID, SELFPAY ==
--- NOTE | ~2022-09-01 | MM_ITS ---
EXAMINATION: MM SCREENING DIGITAL BREAST TOMOSYNTHESIS, BILATERAL CLINICAL INFORMATION: Screening. Asymptomatic. The lifetime risk of breast cancer based on the Tyrer-Cuzick Model is 6%. COMPARISON: Mammography: 08/29/2021, 05/22/2020, 03/28/2019 TECHNIQUE: Digital breast tomosynthesis is performed in both the craniocaudal and mediolateral oblique views along with computer-aided detection (CAD). Synthesized 2D images are generated from the tomosynthesis. FINDINGS: The breasts are heterogeneously dense, which may obscure small masses (ACR BI-RADS breast composition Category c). There are no significant masses, abnormal calcifications, or other abnormalities. Parenchymal pattern is similar to prior studies. There is no developing density or architectural abnormality. The axilla and skin contours are unremarkable. No significant changes. MM/MM tomosynthesis screening BI IMPRESSION: No mammographic evidence of malignancy. ASSESSMENT: BI-RADS 1: Negative RECOMMENDATION: Routine annual mammography screening. This patient's information was entered into a reminder system with a target due date for their next mammogram.
== END 2022-09-01 11:47 | disposition home or self-care (01) ==
LOC: HO.MAMMO 11:46
PROVIDERS: PCP Internal Medicine; Visit Provider Internal Medicine
DX: Z12.31 Encounter for screening mammogram for malignant neoplasm of breast (principal)
CPT/HCPCS: 77063; 77067

== ENCOUNTER 2022-10-08 11:12 | Outpatient (REF) | payer MEDICARE, MEDICAID, SELFPAY ==
[2022-10-08 13:51] LABS: MANUAL DIFF FLAG NO
[2022-10-08 13:59] LABS: Basophils Absolute Auto 0.1 X10*3/uL (0.0-0.2); Eosinophils Absolute Auto 0.2 X10*3/uL (0.0-0.4); Eosinophils Percent Auto 2.6 % (0-4); Hematocrit 45.5 % (37.0-47.0); Hemoglobin 14.9 g/dl (12.0-16.0); Imm Gran Abs Auto 0.02 X10*3/uL (0.00-0.03); Imm Gran Pct Auto 0.2 % (0.0-0.4); Lymphocytes Absolute Auto 3.7 X10*3/uL (1.2-4.9); Lymphocytes Percent Auto 46.2 % (20-40); Mean Corpuscular HGB Conc 32.7 g/dl (31.0-35.0); Mean Corpuscular Hemoglobin 27.7 pg (27.0-33.0); Mean Corpuscular Volume 84.7 fL (80.0-98.0); Monocytes Absolute Auto 0.5 X10*3/uL (0.1-1.2); Monocytes Percent Auto 5.7 % (2-11); Neutrophils Absolute Auto 3.6 x10*3/uL (2.0-8.3); Neutrophils Percent Auto 44.3 % (45-73); Platelet Count 255 X10*3/uL (160-400); Red Blood Count 5.37 X10*6/uL (4.20-5.50); Red Cell Distribution Width 13.5 % (11.0-16.0)
[2022-10-08 14:43] LABS: Alanine Aminotransferase 95 U/L (0-31); Albumin Level 4.3 g/dL (3.5-5.0); Alkaline Phosphatase 73 U/L (39-117); Anion Gap 15 (12-20); Aspartate Amino Transferase 55 U/L (5-31); Bilirubin Total 0.6 mg/dL (0.0-1.0); Blood Urea Nitrogen 14 mg/dL (9-16); Carbon Dioxide 25 mmol/L (22-29); Chloride 107 mmol/L (96-108); Estimated Glomerular Filt Rate > 60; Glucose Random 133 mg/dL (60-115); Potassium 4.6 mmol/L (3.3-5.1); Sodium 142 mmol/L (135-145); TSH reflex Free T4 3.22 uIU/mL (0.32-4.0); Total Protein 7.7 g/dL (6.5-8.0)
== END 2022-10-08 11:13 | disposition home or self-care (01) ==
LOC: HO.HMGCLDS 11:12
PROVIDERS: PCP Internal Medicine; Visit Provider Internal Medicine
DX: F41.1 Generalized anxiety disorder (principal); K76.0 Fatty (change of) liver, not elsewhere classified; N32.81 Overactive bladder; R10.13 Epigastric pain; R79.89 Other specified abnormal findings of blood chemistry; Z91.09 Other allergy status, other than to drugs and biological substances
CPT/HCPCS: 36415; 80053; 84443; 85025

== ENCOUNTER 2022-10-17 12:16 | Outpatient (REF) | payer MEDICARE, MEDICAID, SELFPAY ==
[2022-10-17 14:16] LABS: Syphilis Screen Nonreactive (Nonreactive)
[2022-10-17 14:28] LABS: HBsAGNum1 0.38 S/CO (0.00-0.99); HIV AB/AG Nonreactive (Nonreactive); HIV Num 1 0.07 S/CO (0.00-0.99); Hepatitis B Surface Antigen Negative (Negative); ~HepC Num1 0.06 S/CO (0.00-0.79); ~Hepatitis C Antibody Nonreactive (Nonreactive)
[2022-10-17 16:10] LABS: CT PCR NOT DETECTED (Not Detect.); NG PCR NOT DETECTED (Not Detect.)
[2022-10-18 15:01] LABS: BV Int Neg Control Negative (Negative); BV Int Pos Control Positive (Positive)
== END 2022-10-17 12:17 | disposition home or self-care (01) ==
LOC: HO.LNP 12:16
PROVIDERS: Visit Provider Advanced Practice Midwife
DX: Z11.3 Encounter for screening for infections with a predominantly sexual mode of transmission (principal); Z11.4 Encounter for screening for human immunodeficiency virus [HIV]; L85.3 Xerosis cutis; R21 Rash and other nonspecific skin eruption; N32.9 Bladder disorder, unspecified; Z71.9 Counseling, unspecified
CPT/HCPCS: 86780; 86803; 87340; 87389; 87480; 87491; 87510; 87591; 87660; 99212

== ENCOUNTER 2022-11-28 07:18 | Day surgery (SDC) | payer MEDICARE, MEDICAID, SELFPAY ==
[2022-11-21 15:19] VITALS: BMI 34.3
--- NOTE | 2022-11-27 12:26 | HO.ANESPROP2 ---
Documented by User: Elisa Gonzalez NP 11/27/22 12:28 HPI - Anesthesia Eval Consult details Narrative: 57yo F for Colonoscopy PMFSH Active Problems Active Problems: All Active Problems (Updated 11/21/22 @ 15:19 by Mendy Cummings, TOD) Encounter for screening laboratory testing for COVID-19 virus (Acute) Acute sinusitis (Acute) Allergic rhinitis (Acute) Other specified hypothyroidism (Acute) Exposure to STD (Acute) Anxiety, generalized (Acute) Fatty liver (Acute) Itching of vulva (Acute) Nasal erythema (Acute) LFT elevation (Acute) Environmental allergies (Acute) Asthma, mild (Acute) Obesity (Acute) Bladder disorder (Acute) Dyspepsia (Acute) Sleep apnea with use of continuous positive airway pressure (CPAP) (Acute) Acute sinusitis (Acute) Difficulty swallowing (Acute) Disturbance of smell and taste (Acute) Abscess (Acute) Skin tag (Acute) Medicare annual wellness visit, initial (Acute) Upper respiratory tract infection (Acute) Obesity due to excess calories (Acute) Acute pharyngitis (Acute) Lipoma of neck (Acute) GERD (gastroesophageal reflux disease) (Acute) Medicare annual wellness visit, subsequent (Acute) URI with cough and congestion (Acute) Screen for sexually transmitted diseases (Acute) Health education/counseling (Acute) Rash (Acute) Dry skin (Acute) Restrictive lung disease (Acute) Allergic rhinitis (Acute) Overactive bladder (Acute) Past Medical History Medical History Allergic rhinitis Anxiety and depression Asthma Fatty liver GERD (gastroesophageal reflux disease) History of panic attacks Hypothyroidism IBS (irritable bowel syndrome) TIARRA on CPAP Overactive bladder Restrictive lung disease Family History Family History Mother Brain aneurysm Maternal Aunt Lung cancer Maternal Uncle Cancer Father Cancer of prostate Colon cancer Other Mental health disorder Surgical History Surgical History H/O esophagogastroduodenoscopy History of elbow surgery History of surgery on arm History of tubal ligation Hx of cholecystectomy Hx of colonoscopy Social History Social History Housing: Apartment Are you a primary pediatric care coordinator to a significant other at home: No Alcohol intake: never Patient Tobacco Use Status: Former Tobacco user Tobacco use type: Cigarette Cigarettes Per Day: 7 Years Smoked: 40 e-Cigarette/Vaping Use: Never Used Have you been hit, kicked, punched, or otherwise hurt by someone within the past year? If so, by whom?: No Are you DNR?: No Advance Directives: No Advance Directives Information Provided: Yes Advance Directives on File: No service: No Current occupational status: employed Cognitive needs: No Hearing needs: No Vision needs: No Meds Allergies Allergy/AdvReac Type Severity Reaction Status Date / Time paroxetine [From PAXIL] Allergy Severe BAD Verified 11/21/22 15:17 REACTION - HALLUCINATING varenicline [From CHANTIX] Allergy Severe BAD Verified 11/21/22 15:17 REACTION - HALLUCINATING, redness and itching Home Medications Medication Instructions Recorded Confirmed Last Taken Type escitalopram oxalate 10 mg tablet 1.5 tab PO BEDTIME 11/21/22 11/21/22 Unknown History Exam Exam Date and Time: November 27, 2022 1226 Height,Weight and Vital Signs: Height 5 ft 4 in Weight 90.718 kg Pertinent Lab Results Pertinent Lab Results: Laboratory Tests 10/08/22 10/08/22 11:17 11:17 WBC 8.0 Hgb 14.9 Hct 45.5 Plt Count 255 Sodium 142 Potassium 4.6 Chloride 107 Carbon Dioxide 25 BUN 14 Creatinine 0.81 Assessment and Plan Assessment Anesthesia Assessment: Chart Reviewed Documented by User: Roberta Aj MD 11/28/22 07:52 [facility] Past Medical History Medical History Allergic rhinitis Anxiety and depression Asthma Fatty liver GERD (gastroesophageal reflux disease) History of panic attacks Hypothyroidism IBS (irritable bowel syndrome) TIARRA on CPAP Overactive bladder Restrictive lung disease Family History Family History Mother Brain aneurysm Maternal Aunt Lung cancer Maternal Uncle Cancer Father Cancer of prostate Colon cancer Other Mental health disorder Surgical History Surgical History H/O esophagogastroduodenoscopy History of elbow surgery History of surgery on arm History of tubal ligation Hx of cholecystectomy Hx of colonoscopy History of Problems with Anesthesia: No Social History Social History Housing: Apartment Are you a primary pediatric care coordinator to a significant other at home: No Alcohol intake: never Patient Tobacco Use Status: Former Tobacco user Tobacco use type: Cigarette Cigarettes Per Day: 7 Years Smoked: 40 e-Cigarette/Vaping Use: Never Used Have you been hit, kicked, punched, or otherwise hurt by someone within the past year? If so, by whom?: No Are you DNR?: No Advance Directives: No Advance Directives Information Provided: Yes Advance Directives on File: No service: No Current occupational status: employed Cognitive needs: No Hearing needs: No Vision needs: No Meds Allergies Allergy/AdvReac Type Severity Reaction Status Date / Time paroxetine [From PAXIL] Allergy Severe BAD Verified 11/21/22 15:17 REACTION - HALLUCINATING varenicline [From CHANTIX] Allergy Severe BAD Verified 11/21/22 15:17 REACTION - HALLUCINATING, redness and itching Home Medications Medication Instructions Recorded Confirmed Last Taken Type escitalopram oxalate 10 mg tablet 1.5 tab PO BEDTIME 11/21/22 11/21/22 Unknown History Assessment and Plan Assessment Anesthesia Assessment: Anesthesia Plan Discussed Final Anesthetic Review History of Problems with Anesthesia: No NPO: Yes ASA Class: III Final Preanesthetic Review: Meds/Allgs Chart Reviewed, Consent Obtained/Reviewed and Anes Risks/Benef Reviewed Patient Risk: Intermediate Procedure Risk: Low Anesthetic Plan Anesthetic Plan: MAC: Disposition: Standard PACU
[2022-11-28 07:45] VITALS: BP 104/66; PULSE 73; RESP 16; TEMP 36.2; O2SAT 94
[2022-11-28] MEDS: Lactated Ringers 1,000 ML 100 ML IVCONT (07:47)
--- NOTE | 2022-11-28 08:22 | P.HPSUR_ITS ---
Pre-Procedural Eval Section A Date of Service: 11/28/22 The patient is an INPATIENT: No The History & Physical has been completed within 30 days and I have reviewed it.: No Section B Chief Complaint: screening Details of Present Illness: Colon cancer screening, chronic constipation, rectal bleeding Relevant Family History (Specify if Yes): Yes Relevant Social History: Tobacco Use (Former smoker) Present Medications: see Short Stay Collaborative assessment Medical History: Significant History (Allergic rhinitis Hypothyroidism Ov eractive bladder Restrictive lung disease) History of Previous Operations: Relevant previous surgery/procedure and date(s) (H/O esophagogastroduodenoscopy History of elbow surgery History of tubal ligation Hx of cholecystectomy Hx of colonoscopy) Allergies: Allergies Allergy/AdvReac Type Severity Reaction Status Date / Time paroxetine [From PAXIL] Allergy Severe BAD Verified 11/21/22 15:17 REACTION - HALLUCINATING varenicline [From CHANTIX] Allergy Severe BAD Verified 11/21/22 15:17 REACTION - HALLUCINATING, redness and itching Review of Systems Sugical H&P ROS: Negative: Constitution, Cardiovascular, Respiratory and Gastrointestinal Exam Surgical H&P Exam: Normal: Heart, Normal: Lungs, Normal: Extremities and Normal: Abdomen Plan Diagnosis/Plan: Unchanged I have reviewed the history and physical and performed a pertinent physical examination on my patient. No changes have occurred unless specified. Time Spent With Patient Time: Total time managing care of this patient today ____ minutes.
--- NOTE | 2022-11-28 08:23 | PM.OP ---
Brief Operative Note Date of Service: 11/28/22 Pre-op diagnosis: Colon cancer screening, chronic constipation, rectal bleeding Post-op diagnosis: other (Colon polyps, diverticulosis, hemorrhoids) Procedure: COLONOSCOPY WILL CECUM WITH SNARE POLYPECTOMY Surgeon: Lurdes Garnica MD Anesthesia: MAC Was an Senior Research Fellow used for this Procedure?: Yes Senior Research Fellow: Damion Smith Estimated blood loss (mL): 0 Pathology: other (A: TRANSVERSE COLON POLYP B: SIGMOID POLYP) Condition: stable Disposition: PACU
--- NOTE | 2022-11-28 09:21 | P.OP_ITS ---
Operative Note Operative Note Date of Service: 11/28/22 Narrative: Pre-op diagnosis: Colon cancer screening, chronic constipation, rectal bleeding Post-op diagnosis:?other (Colon polyps, diverticulosis, hemorrhoids) Surgeon: Lurdes Garnica MD Anesthesia:?MAC COLONOSCOPY TILL CECUM WITH SNARE POLYPECTOMY Consent: Indications for the procedure and potential complications of bleeding, perforation, reaction to medications and missed diagnosis were discussed with the patient and informed consent was obtained. Instrument: Olympus PCF H 190 L variable stiffness pediatric colonoscope Monitoring: Vital signs and clinical assessment, intermittent blood pressure monitoring, continuous EKG monitoring, Pulse oximetry and Carbon Dioxide monitoring were done throughout the procedure. Colon withdrawl time was 20 minutes. Procedure: The patient was placed in the left lateral decubitis position and pre-procedure medications were administered. After a digital rectal examination of the ano-rectum, the video colonoscope was inserted into the rectum and advanced through the colon to the cecum. The colonoscope was slowly withdrawn in a retrograde panoramic fashion and the colon mucosa was carefully examined including a retroflexed view of the rectum. Findings and interventions are described below. Procedure Difficulty: Without difficulty Findings: Terminal Ileum: Not evaluated Cecum: Scattered moderate diverticulosis throughout the colon. Partially evaluated due to suboptimal prep Ascending Colon: Scattered moderate diverticulosis throughout the colon. Partially evaluated due to suboptimal prep Transverse Colon: A 12-15 mm sessile polyp removed with a hot snare. Scattered moderate diverticulosis throughout the colon. Partially evaluated due to suboptimal prep Descending Colon: Scattered moderate diverticulosis throughout the colon. Partially evaluated due to suboptimal prep Sigmoid Colon: A 10 mm sessile polyp removed with a hot snare. Scattered moderate diverticulosis throughout the colon. Partially evaluated due to suboptimal prep Rectum: Normal Ano-rectum: Moderate internal hemorrhoids Colon preparation: Fair despite copious irrigation due to under digested vegetable matter which could not be suctioned (pt admitted to eating chicken at 3 pm on 11/27/22) Impression and Post Procedure Diagnosis: Colonoscopy Findings: Two medium sized polyps removed Moderate diverticulosis seen in the entire colon Moderate hemorrhoids on retroflexed exam. Plan: Await pathology results Patient has an appointment on 12/12/22 in the [facility] with Janis Lawton FNP- [facility]. Repeat Colonoscopy interval based on path results - in 1-2 years if polyps are adenomatous and due to fair prep. Pt needs 2 tab of duloclax starting 2 days before colonoscopy and strict clear liquid diet the day before. Above findings were reviewed with the patient and colon polyps and diverticulosis handouts were given in the discharge area
[2022-11-28 09:25] VITALS: BP 98/59; PULSE 73; RESP 20; TEMP 36.5; O2SAT 96
[2022-11-28 09:40] VITALS: BP 103/64; PULSE 60; RESP 20; O2SAT 97
[2022-11-28 09:56] VITALS: TEMP 36.6
== END 2022-11-28 10:14 | disposition home or self-care (01) ==
PROVIDERS: PCP Internal Medicine; Visit Provider Internal Medicine Gastroenterology
PROC: 0DJD8ZZ Inspection of Lower Intestinal Tract, Via Natural or Artificial Opening Endoscopic (ICD-10-PCS; CPT 45378; principal; 2022-11-28 08:30)
DX: Z12.11 Encounter for screening for malignant neoplasm of colon (principal); D12.3 Benign neoplasm of transverse colon; D12.5 Benign neoplasm of sigmoid colon; K57.30 Diverticulosis of large intestine without perforation or abscess without bleeding; K64.8 Other hemorrhoids; K59.09 Other constipation; K58.2 Mixed irritable bowel syndrome; K76.0 Fatty (change of) liver, not elsewhere classified; R79.89 Other specified abnormal findings of blood chemistry; J45.909 Unspecified asthma, uncomplicated; G47.33 Obstructive sleep apnea (adult) (pediatric); Z88.8 Allergy status to other drugs, medicaments and biological substances; Z90.49 Acquired absence of other specified parts of digestive tract; Z87.891 Personal history of nicotine dependence
CPT/HCPCS: 45385; 88305

== ENCOUNTER 2022-12-08 13:07 | Outpatient (REF) | payer MEDICARE, MEDICAID, SELFPAY ==
[2022-12-08 15:14] LABS: Influenza A PCR NEGATIVE (Negative); Influenza B PCR NEGATIVE (Negative); Resp Syncy Virus RNA Qual PCR NEGATIVE (Negative); SARS COV2 PCR INHOUSE POSITIVE (Negative)
== END 2022-12-08 13:08 | disposition home or self-care (01) ==
LOC: HO.LAB 13:07
PROVIDERS: Visit Provider Nurse Practitioner Family
DX: R09.89 Other specified symptoms and signs involving the circulatory and respiratory systems (principal); Z20.822 Contact with and (suspected) exposure to COVID-19
CPT/HCPCS: 0241U

== ENCOUNTER 2023-01-05 10:33 | Outpatient (REF) | payer MEDICARE, MEDICAID, SELFPAY ==
[2023-01-05 12:32] LABS: Alanine Aminotransferase 61 U/L (0-31); Albumin Level 4.3 g/dL (3.5-5.0); Alkaline Phosphatase 81 U/L (39-117); Aspartate Amino Transferase 36 U/L (5-31); Bilirubin Direct < 0.2 mg/dL (0.0-0.5); Bilirubin Total 0.4 mg/dL (0.0-1.0); Total Protein 7.5 g/dL (6.5-8.0)
== END 2023-01-05 10:34 | disposition home or self-care (01) ==
LOC: HO.LAB 10:33
PROVIDERS: PCP Internal Medicine; Visit Provider Nurse Practitioner Family
DX: R10.9 Unspecified abdominal pain (principal); R79.89 Other specified abnormal findings of blood chemistry; K76.0 Fatty (change of) liver, not elsewhere classified; K21.9 Gastro-esophageal reflux disease without esophagitis; K57.90 Diverticulosis of intestine, part unspecified, without perforation or abscess without bleeding; D36.9 Benign neoplasm, unspecified site; K58.1 Irritable bowel syndrome with constipation; K59.01 Slow transit constipation; Z98.890 Other specified postprocedural states
CPT/HCPCS: 36415; 80076; 99212

== ENCOUNTER 2023-01-13 09:44 | Outpatient (REF) | payer MEDICARE, MEDICAID, SELFPAY ==
--- NOTE | ~2023-01-13 | US_ITS ---
EXAMINATION: US ABDOMEN LIMITED CLINICAL INFORMATION: Other specified abnormal findings of blood chemistry. COMPARISON: Ultrasound abdomen complete with elastography 07/24/2021. Ultrasound abdomen 07/20/2019. TECHNIQUE: Real-time imaging of the right upper quadrant abdominal viscera. FINDINGS: PANCREAS: Normal. LIVER: The liver is normal in size. The liver contour is normal. Diffuse increased echogenicity of the liver parenchyma. No focal hepatic lesion. There is no intrahepatic biliary duct dilatation seen. GALLBLADDER: Surgically absent. COMMON BILE DUCT: Normal in caliber measuring 0.6 cm in diameter. RIGHT KIDNEY: Normal. No hydronephrosis. No renal calculi or focal parenchymal lesions. The kidney measures 11.3 cm in maximum dimension. FREE FLUID: None. US/US abdomen limited IMPRESSION: Increased hepatic echogenicity which can be seen in the setting of hepatic steatosis or underlying liver disease.
== END 2023-01-13 09:45 | disposition home or self-care (01) ==
LOC: HO.HMGCX 09:44
PROVIDERS: PCP Internal Medicine; Visit Provider Nurse Practitioner Family
DX: R79.89 Other specified abnormal findings of blood chemistry (principal)
CPT/HCPCS: 76705

== ENCOUNTER → 2023-01-26 14:02 | Outpatient (BNVA) | payer MEDICARE, MEDICAID, SELFPAY | PROVIDERS: PCP Internal Medicine; Visit Provider Internal Medicine | DX: J98.4 Other disorders of lung (principal); J45.909 Unspecified asthma, uncomplicated; G47.30 Sleep apnea, unspecified | CPT/HCPCS: 99212 ==

== ENCOUNTER → 2023-02-18 14:02 | Outpatient (BNVA) | payer MEDICARE, MEDICAID, SELFPAY | PROVIDERS: PCP Internal Medicine; Referring Provider Internal Medicine; Visit Provider Nurse Practitioner Family | DX: K21.9 Gastro-esophageal reflux disease without esophagitis (principal); K76.0 Fatty (change of) liver, not elsewhere classified; K58.2 Mixed irritable bowel syndrome; K64.9 Unspecified hemorrhoids; R74.01 Elevation of levels of liver transaminase levels | CPT/HCPCS: 99212 ==

== ENCOUNTER 2023-06-04 11:33 | Outpatient (REF) | payer MEDICARE, MEDICAID, SELFPAY | END 2023-06-04 11:34 | disposition home or self-care (01) | LOC: HO.LNP 11:33 | PROVIDERS: PCP Internal Medicine; Visit Provider Obstetrics & Gynecology | DX: Z13.89 Encounter for screening for other disorder (principal) | CPT/HCPCS: 99212 ==

== ENCOUNTER 2023-06-04 12:07 | Outpatient (REF) | payer MEDICARE, MEDICAID, SELFPAY | END 2023-06-04 12:08 | disposition home or self-care (01) | LOC: HO.LAB 12:07 | PROVIDERS: PCP Internal Medicine; Visit Provider Obstetrics & Gynecology | DX: Z11.4 Encounter for screening for human immunodeficiency virus [HIV] (principal); R10.2 Pelvic and perineal pain; N39.0 Urinary tract infection, site not specified; Z20.2 Contact with and (suspected) exposure to infections with a predominantly sexual mode of transmission | CPT/HCPCS: 0353U; 86780; 86803; 87086; 87340; 87389; 87480; 87510; 87660; 99212 ==

== ENCOUNTER 2023-06-19 11:24 | Outpatient (REF) | payer MEDICARE, MEDICAID, SELFPAY ==
--- NOTE | ~2023-06-19 | US_ITS ---
EXAMINATION: US PELVIS CLINICAL INFORMATION: Pelvic and perineal pain, right lower quadrant pain. Postmenopausal. COMPARISON: 07/03/2020. TECHNIQUE: Ultrasound of the pelvis is performed using both transabdominal and transvaginal transducers along with Doppler. Transvaginal imaging is performed due to inadequate visualization transabdominally. FINDINGS: The uterus is anteverted, heterogeneous, and measures 7.2 x 3.4 x 4.5 cm. No discrete fibroids are identified. The endometrial thickness is 0.4 cm. Nabothian cysts in the cervix. The right ovary is surgically absent. No significant free fluid. The left ovary is unremarkable and measures 2.6 x 1.6 x 2.2 cm, volume 4.8 mL. US/US pelvic and transvaginal IMPRESSION: 1. Heterogeneous uterus. No discrete fibroids. 2. The endometrial thickness is 0.4 cm. 3. Nabothian cysts in the cervix. 4. The right ovary is surgically absent. 5. The left ovary is unremarkable.
== END 2023-06-19 11:25 | disposition home or self-care (01) ==
LOC: HO.US 11:24
PROVIDERS: PCP Internal Medicine; Visit Provider Obstetrics & Gynecology
DX: R10.2 Pelvic and perineal pain (principal)
CPT/HCPCS: 76830; 76856

== ENCOUNTER 2023-07-02 12:48 | Outpatient (AMB) | payer MEDICARE, MEDICAID, SELFPAY ==
[2023-07-02 12:52] VITALS: BP 130/72; PULSE 86; TEMP 36.1; O2SAT 96
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
== END 2023-07-02 13:20 | disposition home or self-care (01) ==
PROVIDERS: PCP Internal Medicine; Visit Provider Physician Assistant
DX: H61.23 Impacted cerumen, bilateral (principal)
CPT/HCPCS: 69209; 99213

== ENCOUNTER 2023-07-17 09:12 | Outpatient (AMB) | payer MEDICARE, MEDICAID, SELFPAY ==
[2023-07-17 09:13] VITALS: BP 126/74; PULSE 82; O2SAT 98; BMI 34.3
--- NOTE | 2023-07-17 09:13 | A.OFFPC_ITS ---
Vital Signs 07/17/23 09:13 Height 5 ft 3 in Weight 193 lb 6 oz BMI 34.3 BP 126/74 Blood Pressure Location Rt brachial Position Sitting Pulse 82 Pulse Source Pulse Oximeter Pulse Oximetry (%) 98 Oxygen Delivery Method Room Air Intake Visit Reasons: 3 month follow up Allergies paroxetine [From PAXIL] Allergy (Severe, Verified 07/17/23 09:14) BAD REACTION - HALLUCINATING varenicline [From CHANTIX] Allergy (Severe, Verified 07/17/23 09:14) BAD REACTION - HALLUCINATING, redness and itching Medication List - Last Reconciled 07/17/23 by David Diaz MD albuterol sulfate 90 mcg/actuation (Ventolin HFA) 1 inh inhalation Q6H PRN albuterol sulfate 2.5 mg (3 mL) inhalation TID PRN 30 days cholecalciferol (vitamin D3) 50 mcg PO DAILY hydrocortisone 2.5% (Proctosol HC) 1 appl [place] BID-QID PRN levothyroxine 88 mcg PO QAM 90 days oxybutynin chloride ER 10 mg PO DAILY 90 days Tobacco use date assessed: 07/17/23 Dental Screening Dental Screen Date: 07/17/23 Did you have a dental visit in the last 12 months?: No Did you have a dental problem in the last 6 months where you did not have access to dental care?: No Was dental information given to patient?: No HPI 3 month follow up HPI Details Patient is a 58-year-old female came in for her regular follow-up appointment Patient is feeling little anxious these days because of her living situation 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 She has filed a case in accord. Depression is stable with ecitalopram, it is through PCP office now , she does not know the dose but taking 1 and half tablet Allergies are stable with singular. Patient was taking loratadine as well but tells me that she can not afford it Bladder disorder: Incontinence stable with oxybutynin. GERD is stable with omeprazole patient is due for labs Hypothyroidism: Continue levothyroxine 88 mcg Albuterol inhaler as needed. Follow-up 3 months [facility] Medical History Allergic rhinitis Anxiety and depression Asthma Diverticulosis Fatty liver GERD (gastroesophageal reflux disease) History of panic attacks Hypothyroidism IBS (irritable bowel syndrome) TIARRA on CPAP Overactive bladder Restrictive lung disease Transaminitis Tubular adenoma Surgical History H/O esophagogastroduodenoscopy History of elbow surgery History of surgery on arm History of tubal ligation Hx of cholecystectomy Hx of colonoscopy Family History Mother Brain aneurysm Maternal Aunt Lung cancer Maternal Uncle Cancer Father Cancer of prostate Colon cancer Other Mental health disorder Social History Housing: Apartment Are you a primary hospice home care coordinator to a significant other at home: No Alcohol intake: never Patient Tobacco Use Status: Former Tobacco user Tobacco use type: Cigarette Cigarettes Per Day: 7 Years Smoked: 40 e-Cigarette/Vaping Use: Never Used service: No Current occupational status: employed Cognitive needs: No Hearing needs: No Vision needs: No Female Reproductive History Menstrual Age of Menarche: 16 Questionnaire PHQ-9 Over the last 2 weeks, how often have you been bothered by any of the following problems? 1. Little interest or pleasure in doing things: more than half the days 2. Feeling down, depressed, or hopeless: more than half the days 3. Trouble falling or staying asleep, or sleeping too much: more than half the days 4. Feeling tired or having little energy: not at all 5. Poor appetite or overeating: not at all 6. Feeling bad about yourself - or that you are a failure or have let yourself or your family down: not at all 7. Trouble concentrating on things, such as reading the newspaper or watching television: not at all 8. Moving or speaking so slowly that other people could have noticed. Or the opposite - being so fidgety or restless that you have been moving around a lot more than usual: not at all 9. Thoughts that you would be better off or of hurting yourself in some way: not at all Total score: 6 Depression Screening Interpretation: Negative 92375 - PHQ-9 Billing: Yes Source: Developed by Drs. Miguel Reyes, Ashly B.WDarvin William and colleagues, with an educational darlin from [employer]. Thrive Questionnaire Date Thrive assessed: 07/17/23 I am a: Patient What is your living situation today?: I have a steady place to live Within the past 12 months, did the food you bought not last and you didn't have the money to get more?: Never true Within the past 12 months, did you worry whether your food would run out before you got money to buy more?: Never true Do you have trouble paying for medicines?: No Do you have trouble getting transportation to medical appointments?: No Do you have trouble paying your heating and electricity bill?: No Do you have trouble taking care of your child, family member or friend?: No Do you have trouble with day-to-day activities such as bathing, preparing meals, shopping, managing finances, etc.?: No Are you currently unemployed and looking for a job?: No Are you interested in more education?: No AUDIT C Alcohol Use Questionnaire (AUDIT-C) 1. How often do you have a drink containing alcohol?: Never 3. How often do you have six or more drinks on one occasion?: Never Total Score: 0 Score Reviewed/Action Taken: Yes AGATA-7 AMB Questionnaire AGATA-7 Date AGATA - 7 assessed: 07/17/23 Feeling nervous, anxious, or on edge: 2 = More than half the days Not being able to stop or control worryin = More than half the days Worrying too much about different things: 2 = More than half the days Trouble relaxin = More than half the days Being so restless that it is hard to sit still: 0 = Not at all Becoming easily annoyed or irritable: 0 = Not at all Feeling afraid as if something awful might happen: 0 = Not at all Total AGATA-7 score (0-4 normal; 5-9 mild; 10-14 moderate; 15-21 severe): 8 Source: Developed by Drs. Miguel Reyes, Darvin Duke and colleagues, with an educational darlin from [employer]. AGATA-7 Assessment Billing AGATA-7 Assessment Tool: AGATA-7 Assessment 87185 Review of Systems Const Denies chills and Denies fever(s) ENT Denies epistaxis and Denies nasal discharge Card Denies chest pain Resp Denies chest congestion, Denies cough and Denies hemoptysis GI Denies diarrhea and Denies nausea Skin/Breast Denies rash Neuro Reports no additional complaints Psych Reports no additional complaints Endo Reports no additional complaints Physical exam (Primary Care) Vital Signs: Last Vital Signs Pulse 82 07/17/23 09:13 BP 126/74 07/17/23 09:13 Pulse Ox 98 07/17/23 09:13 Oxygen Delivery Method Room Air 07/17/23 09:13 BMI result Body Mass Index 34.3 Tobacco/Smoking Status: Tobacco use Status Tobacco use date assessed 07/17/23 07/17/23 09:15 Patient Tobacco Use Status Former Tobacco user 07/17/23 09:15 Tobacco use type Cigarette 07/17/23 09:15 e-Cigarette/Vaping Use Never Used 07/17/23 09:15 PHQ-9: PHQ-9 Score PHQ-9: Total score 6 07/17/23 11:06 Depression Screening Interpretation: Negative Thrive Assessment: Date of Thrive Assessment Date Thrive assessed 07/17/23 07/17/23 09:42 Const General: cooperative, comfortable and no acute distress Orientation/consciousness: patient oriented x3 HENMT Head: Yes normocephalic Eyes General: appearance normal, both eyes and all related structures Neck Neck: Yes supple Resp Effort & Inspection: normal respiratory effort, no cough and no stridor Cardio Rhythm: regular rhythm Heart sounds: S1 normal heart sound present and S2 normal heart sound present Skin General skin exam: turgor normal Neuro General: patient oriented x3, tone normal and moves all extremities Extrem Right lower extremity: no edema Left lower extremity: no edema Assessment and Plan Assessment & Plan (1) Overactive bladder: Code(s): N32.81 - Overactive bladder (2) GERD (gastroesophageal reflux disease): Code(s): K21.9 - Gastro-esophageal reflux disease without esophagitis Qualifiers: Esophagitis presence: esophagitis presence not specified Qualified Code(s): K21.9 - Gastro-esophageal reflux disease without esophagitis (3) Obesity due to excess calories: Code(s): E66.09 - Other obesity due to excess calories (4) Dyspepsia: Code(s): R10.13 - Epigastric pain (5) LFT elevation: Code(s): R79.89 - Other specified abnormal findings of blood chemistry (6) Environmental allergies: Code(s): Z91.09 - Other allergy status, other than to drugs and biological substances (7) Anxiety, generalized: Code(s): F41.1 - Generalized anxiety disorder (8) Other specified hypothyroidism: Code(s): E03.8 - Other specified hypothyroidism Plan Patient is a 58-year-old female came in for her regular follow-up appointment Patient is feeling little anxious these days because of her living situation 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 She has filed a case in accord. Depression is stable with ecitalopram, it is through PCP office now , she does not know the dose but taking 1 and half tablet Allergies are stable with singular. Patient was taking loratadine as well but tells me that she can not afford it Bladder disorder: Incontinence stable with oxybutynin. GERD is stable with omeprazole patient is due for labs Hypothyroidism: Continue levothyroxine 88 mcg Albuterol inhaler as needed. Follow-up 3 months Orders: Orders Comprehensive Met. Panel Today E03.8 - Other specified hypothyroidism, E66.09 - Other obesity due to excess calories, F41.1 - Generalized anxiety disorder, K21.9 - Gastro-esophageal reflux disease without esophagitis, N32.81 - Overactive bladder, R10.13 - Epigastric pain, R79.89 - Other specified abnormal findings of blood chemistry, Z91.09 - Other allergy status, other than to drugs and biological substances LDL Cholesterol Direct Today E03.8 - Other specified hypothyroidism, E66.09 - Other obesity due to excess calories, F41.1 - Generalized anxiety disorder, K21.9 - Gastro-esophageal reflux disease without esophagitis, N32.81 - Overactive bladder, R10.13 - Epigastric pain, R79.89 - Other specified abnormal findings of blood chemistry, Z91.09 - Other allergy status, other than to drugs and biological substances TSH reflex Free T4 Today E03.8 - Other specified hypothyroidism, E66.09 - Other obesity due to excess calories, F41.1 - Generalized anxiety disorder, K21.9 - Gastro-esophageal reflux disease without esophagitis, N32.81 - Overactive bladder, R10.13 - Epigastric pain, R79.89 - Other specified abnormal findings of blood chemistry, Z91.09 - Other allergy status, other than to drugs and biological substances Complete Blood Count Auto Diff Today E03.8 - Other specified hypothyroidism, E66.09 - Other obesity due to excess calories, F41.1 - Generalized anxiety disorder, K21.9 - Gastro-esophageal reflux disease without esophagitis, N32.81 - Overactive bladder, R10.13 - Epigastric pain, R79.89 - Other specified abnormal findings of blood chemistry, Z91.09 - Other allergy status, other than to drugs and biological substances Coding Level of Care Code Est Pt Level 4 (68010) Diagnoses Overactive bladder N32.81 GERD (gastroesophageal reflux disease) K21.9 Esophagitis presence: esophagitis presence not specified Obesity due to excess calories E66.09 Dyspepsia R10.13 LFT elevation R79.89 Environmental allergies Z91.09 Anxiety, generalized F41.1 Other specified hypothyroidism E03.8 Additional Codes AGATA-7 Assessment Billing - AGATA-7 Assessment Tool: AGATA-7 Assessment 26339 ([id number])
== END 2023-07-17 10:06 | disposition home or self-care (01) ==
PROVIDERS: Visit Provider Internal Medicine
DX: N32.81 Overactive bladder (principal); E03.8 Other specified hypothyroidism; K21.9 Gastro-esophageal reflux disease without esophagitis; Z91.09 Other allergy status, other than to drugs and biological substances; E66.09 Other obesity due to excess calories; Z68.34 Body mass index [BMI] 34.0-34.9, adult; R10.13 Epigastric pain; R79.89 Other specified abnormal findings of blood chemistry; F41.1 Generalized anxiety disorder
CPT/HCPCS: 99214

== ENCOUNTER 2023-07-17 09:36 | Outpatient (REF) | payer MEDICARE, MEDICAID, SELFPAY ==
[2023-07-17 11:12] LABS: MANUAL DIFF FLAG NO
[2023-07-17 11:35] LABS: Basophils Absolute Auto 0.1 X10*3/uL (0.0-0.2); Basophils Percent Auto 0.7 % (0-2); Eosinophils Absolute Auto 0.2 X10*3/uL (0.0-0.4); Eosinophils Percent Auto 2.1 % (0-4); Hematocrit 43.6 % (37.0-47.0); Hemoglobin 14.3 g/dl (12.0-16.0); Imm Gran Abs Auto 0.02 X10*3/uL (0.00-0.03); Imm Gran Pct Auto 0.2 % (0.0-0.4); Lymphocytes Percent Auto 33.7 % (20-40); Mean Corpuscular HGB Conc 32.8 g/dl (31.0-35.0); Mean Corpuscular Hemoglobin 28.3 pg (27.0-33.0); Mean Corpuscular Volume 86.3 fL (80.0-98.0); Monocytes Absolute Auto 0.7 X10*3/uL (0.1-1.2); Monocytes Percent Auto 7.5 % (2-11); Neutrophils Percent Auto 55.8 % (45-73); Platelet Count 261 X10*3/uL (160-400); Red Blood Count 5.05 X10*6/uL (4.20-5.50); Red Cell Distribution Width 13.3 % (11.0-16.0)
[2023-07-17 12:20] LABS: Alanine Aminotransferase 49 U/L (0-31); Albumin Level 4.1 g/dL (3.5-5.0); Alkaline Phosphatase 71 U/L (39-117); Anion Gap 13 (12-20); Aspartate Amino Transferase 30 U/L (5-31); Bilirubin Total 0.4 mg/dL (0.0-1.0); Blood Urea Nitrogen 16 mg/dL (9-16); Calcium 9.4 mg/dL (8.4-10.2); Carbon Dioxide 27 mmol/L (22-29); Chloride 107 mmol/L (96-108); Estimated Glomerular Filt Rate > 60; Glucose Random 146 mg/dL (60-115); Potassium 4.5 mmol/L (3.3-5.1); Sodium 142 mmol/L (135-145); Total Protein 7.7 g/dL (6.5-8.0)
[2023-07-17 12:38] LABS: TSH reflex Free T4 1.19 uIU/mL (0.32-4.0)
[2023-07-18 12:19] LABS: LDL Cholesterol Direct 117 mg/dL (<100)
== END 2023-07-17 09:37 | disposition home or self-care (01) ==
LOC: HO.HMGCLDS 09:36
PROVIDERS: PCP Internal Medicine; Visit Provider Internal Medicine
DX: E03.8 Other specified hypothyroidism (principal); F41.1 Generalized anxiety disorder; E66.09 Other obesity due to excess calories; K21.9 Gastro-esophageal reflux disease without esophagitis; N32.81 Overactive bladder; R10.13 Epigastric pain; R79.89 Other specified abnormal findings of blood chemistry; Z91.09 Other allergy status, other than to drugs and biological substances
CPT/HCPCS: 36415; 80053; 83721; 84443; 85025

== ENCOUNTER 2023-08-06 10:53 | Outpatient (AMB) | payer MEDICARE, MEDICAID, SELFPAY ==
[2023-08-06 11:02] VITALS: BP 124/76; BMI 34.2
--- NOTE | 2023-08-06 11:02 | MHC.OFFVIS ---
Intake Vital Signs 08/06/23 11:02 Height 5 ft 3 in Weight 193 lb BMI 34.2 BP 124/76 Intake Visit Reasons: US Follow up Shift Supervisor Melting Required: No Allergies paroxetine [From PAXIL] Allergy (Severe, Verified 08/06/23 11:03) BAD REACTION - HALLUCINATING varenicline [From CHANTIX] Allergy (Severe, Verified 08/06/23 11:03) BAD REACTION - HALLUCINATING, redness and itching Is last menstrual period known: No Post menopausal: Yes HPI HPI Comments History of Present Illness Details Presenting for follow-up ultrasound regarding pelvic pain. GC/chlamydia were negative. Last visit urine dip was negative. Pelvic ultrasound showed the following: IMPRESSION: 1. Heterogeneous uterus. No discrete fibroids. 2. The endometrial thickness is 0.4 cm. 3. Nabothian cysts in the cervix. 4. The right ovary is surgically absent. 5. The left ovary is unremarkable. [facility] Medical History Transaminitis Tubular adenoma Diverticulosis GERD (gastroesophageal reflux disease) Anxiety and depression Asthma History of panic attacks TIARRA on CPAP Fatty liver IBS (irritable bowel syndrome) Restrictive lung disease Allergic rhinitis Hypothyroidism Overactive bladder Surgical History History of surgery on arm Hx of colonoscopy H/O esophagogastroduodenoscopy History of tubal ligation Hx of cholecystectomy History of elbow surgery Family History Mother Brain aneurysm Maternal Aunt Lung cancer Maternal Uncle Cancer Father Cancer of prostate Colon cancer Other Mental health disorder Social History Housing: Apartment Are you a primary laboratory animal care veterinarian to a significant other at home: No Alcohol intake: never Patient Tobacco Use Status: Former Tobacco user Tobacco use type: Cigarette Cigarettes Per Day: 7 Years Smoked: 40 e-Cigarette/Vaping Use: Never Used service: No Current occupational status: employed Cognitive needs: No Hearing needs: No Vision needs: No Female Reproductive History Menstrual Age of Menarche: 16 control method: permanent sterilization Review of Systems Const All systems reviewed & are unremarkable except as noted in HPI and below Reports as per HPI and Reports no additional complaints GI Reports no additional complaints Reports no additional complaints Physical Exam Vital Signs: Last Vital Signs BP 124/76 08/06/23 11:02 BMI result Body Mass Index 34.2 Assessment & Plan Assessment & Plan (1) Female pelvic pain: Code(s): R10.2 - Pelvic and perineal pain Plan: Discussed with the patient is ulcer the workup done including GC/chlamydia, urine dip and pelvic ultrasound, the patient was reassured. Instructions given the patient to schedule appointment her PCP for further management. All questions answered, the patient verbalized understanding. Coding Level of Care Code Est Pt Level 3 (73799) Diagnoses Female pelvic pain R10.2
== END 2023-08-06 11:16 | disposition home or self-care (01) ==
PROVIDERS: PCP Internal Medicine; Visit Provider Obstetrics & Gynecology
DX: R10.2 Pelvic and perineal pain (principal)
CPT/HCPCS: 99213

== ENCOUNTER → 2023-08-06 10:53 | Outpatient (BNVA) | payer MEDICARE, MEDICAID, SELFPAY | PROVIDERS: PCP Internal Medicine; Visit Provider Obstetrics & Gynecology | DX: R10.2 Pelvic and perineal pain (principal); Z90.721 Acquired absence of ovaries, unilateral; Z78.0 Asymptomatic menopausal state | CPT/HCPCS: 99212 ==

== ENCOUNTER 2023-08-21 11:54 | Outpatient (AMB) | payer MEDICARE, MEDICAID, SELFPAY ==
--- NOTE | 2023-08-21 11:56 | MHC.OFFVIS ---
Intake Vital Signs 08/21/23 11:59 Height 5 ft 3 in Weight 191 lb 12.835 oz BMI 34.0 BP 108/72 Blood Pressure Location Lt brachial Position Sitting Pulse 77 Intake Visit Reasons: follow up 4 months Intake Note: Dorraine presents in the office as a follow up 4 month. CC: She states that she is not having any concerns at the moment. CC: Allergies paroxetine [From PAXIL] Allergy (Severe, Verified 08/26/23 14:48) BAD REACTION - HALLUCINATING varenicline [From CHANTIX] Allergy (Severe, Verified 08/26/23 14:48) BAD REACTION - HALLUCINATING, redness and itching HPI follow up 4 months HPI Details LAST VISIT GERD (gastroesophageal reflux disease) Continue current treatment. Continue avoiding dietary triggers in late night snacking. Staying upright for min will 3 hours after meals discussed with patient. Fatty liver Hepatic steatosis found on ultrasound. Patient was encouraged to lose weight. Patient lost lb. Patient was also encouraged to exercise or go for walks. Transaminitis Liver enzymes improved last month. We will recheck him again in 6 months. IBS (irritable bowel syndrome) Low FODMAP diet encouraged. List of food recommended as well as list of food to avoid given to patient. Hemorrhoid Will give patient script for Proctosol. Patient will call our office if she will continue to have discomfort. Patient was also encouraged to call us if she will have bleeding and pain. We will hold off on referral to General surgery. I will see her in 4 months, sooner on as needed basis. Patient is agreeable to this plan and verbalizes understanding of instructions. She was given the opportunity to ask questions and all questions answered. ? Thank you for allowing me to participate in her care Plan Medications Refilled hydrocortisone 2.5% (Proctosol HC) 1 appl [place] BID-QID PRN 30 grams 3RF hemorrhoids TODAY'S VISIT Patient is here today for follow-up. Patient reports that since last time I have seen her she has been feeling little better. Patient states that she is avoiding dietary triggers, however occasionally patient states that she will have he and food that she knows she should be staying away from. Patient occasionally reports postprandial loose stools. States that she is moving her bowels better. Patient is that she is eating more vegetable. Occasional acid reflux with occasional dyspepsia without dysphagia or odynophagia. Patient denies any nausea or vomiting denies any abdominal pain or discomfort. Occasional postprandial abdominal bloating depending on what she eats. Patient had colonoscopy October 2022 and had suboptimal prep. Recommendation was made for colonoscopy repeated in 1-2 years. Patient denies melena, hematochezia, unintentional weight loss or ribbon like stools. [facility] Medical History Transaminitis Tubular adenoma Diverticulosis GERD (gastroesophageal reflux disease) Anxiety and depression Asthma History of panic attacks TIARRA on CPAP Fatty liver IBS (irritable bowel syndrome) Restrictive lung disease Allergic rhinitis Hypothyroidism Overactive bladder Surgical History History of surgery on arm Hx of colonoscopy H/O esophagogastroduodenoscopy History of tubal ligation Hx of cholecystectomy History of elbow surgery Family History Mother Brain aneurysm Maternal Aunt Lung cancer Maternal Uncle Cancer Father Cancer of prostate Colon cancer Other Mental health disorder Social History Housing: Apartment Are you a primary infant caregiver to a significant other at home: No Alcohol intake: never Patient Tobacco Use Status: Former Tobacco user Tobacco use type: Cigarette Cigarettes Per Day: 7 Years Smoked: 40 e-Cigarette/Vaping Use: Never Used service: No Current occupational status: employed Cognitive needs: No Hearing needs: No Vision needs: No Female Reproductive History Menstrual Age of Menarche: 16 Review of Systems Const Denies weight gain and Denies weight loss ENT Reports no additional complaints, Denies dysphagia and Denies odynophagia Card Reports no additional complaints Resp Reports no additional complaints GI Denies abdominal pain, Denies belching, Denies melena, Denies bloating, Denies change in bowel habits, Denies dysphagia, Denies excessive flatus, Denies dyspepsia, Reports heartburn, Denies diarrhea, Reports loose stools, Denies nausea, Denies odynophagia and Denies vomiting Reports no additional complaints Musc Reports no additional complaints Neuro Reports no additional complaints Psych Reports no additional complaints Endo Reports no additional complaints Physical Exam Vital Signs: Last Vital Signs Pulse 77 08/21/23 11:59 BP 108/72 08/21/23 11:59 BMI result Body Mass Index 34.0 Const General: healthy appearing, no acute distress and well developed Nutritional Appearance: obese Orientation/consciousness: patient oriented x3 HEENT Head: Yes normal to inspection, Yes normocephalic and Yes atraumatic Face and sinus: Yes normal facial exam Mouth: Normal oral and palatal mucosa present Throat: Yes posterior oropharynx normal, Yes tonsils normal and Yes uvula midline Eyes General: appearance normal, both eyes and all related structures Neck Neck: Yes normal visual inspection, Yes full ROM and Yes trachea midline Thyroid: Thyroid normal Resp Effort & Inspection: normal respiratory effort, able to speak in complete sentences, no tracheal deviation and symmetric chest movement Auscultation: clear to auscultation bilaterally Cardio Rate: regular rate Heart sounds: S1 normal heart sound present and S2 normal heart sound present GI Inspection: Yes normal to inspection, No distended and Yes obesity Palpation (GI): Soft to palpation, not firm, nontender and No hepatosplenomegaly present Auscultation: normal bowel sounds General: Yes no CVA tenderness Back/Spine/Pelvis Back: no CVA tenderness Skin General skin exam: elasticity normal, turgor normal and dry skin Neuro General: patient oriented x3 Psych Appearance: grossly normal Mental Status: mental status grossly normal Assessment & Plan Assessment & Plan (1) GERD (gastroesophageal reflux disease): Code(s): K21.9 - Gastro-esophageal reflux disease without esophagitis Qualifiers: Esophagitis presence: esophagitis presence not specified Qualified Code(s): K21.9 - Gastro-esophageal reflux disease without esophagitis (2) Fatty liver: Code(s): K76.0 - Fatty (change of) liver, not elsewhere classified (3) Transaminitis: Code(s): R74.01 - Elevation of levels of liver transaminase levels (4) IBS (irritable bowel syndrome): Code(s): K58.9 - Irritable bowel syndrome without diarrhea Qualifiers: Irritable bowel syndrome type: with both diarrhea and constipation Qualified Code(s): K58.2 - Mixed irritable bowel syndrome (5) Hemorrhoid: Code(s): K64.9 - Unspecified hemorrhoids Qualifiers: Hemorrhoid type: unspecified Qualified Code(s): K64.9 - Unspecified hemorrhoids Plan Can you turn this down below valve she He Discussed with patient the importance of avoiding dietary triggers and late night snacking. Avoiding food that causes postprandial abdominal bloating and loose stools. Low FODMAP diet discussed with patient. Patient was encouraged not to related night and he her 3 hours before bedtime. Patient was started on omeprazole. Patient reports that she moves her bowels better he any increasing fluid and activity to promote better bowel mobility. The importance of wheezing weight discussed with patient. I will see patient in 6 months to discuss go for colonoscopy. Patient is agreeable to this plan and verbalizes understanding of instructions. She was given the opportunity to ask questions and all questions answered. Thank you for allowing me to participate in her care Medications: New omeprazole 20 mg PO DAILY 90 caps 2RF K21.9 - Gastro-esophageal reflux disease without esophagitis Refilled hydrocortisone 2.5% (Proctosol HC) 1 appl [place] BID-QID PRN 30 grams 3RF hemorrhoids Coding Level of Care Code Est Pt Level 3 (15098) Diagnoses Gastroesophageal reflux disease, unspecified whether esophagitis present K21.9 Esophagitis presence: esophagitis presence not specified Fatty liver K76.0 Transaminitis R74.01 Irritable bowel syndrome with both constipation and diarrhea K58.2 Irritable bowel syndrome type: with both diarrhea and constipation Hemorrhoids, unspecified hemorrhoid type K64.9 Hemorrhoid type: unspecified Time Spent (min) 30 Comment 20 minutes spent with patient and additional 10 minutes spent reviewing her records
[2023-08-21 11:59] VITALS: BP 108/72; PULSE 77; BMI 34.0
== END 2023-08-21 12:21 | disposition home or self-care (01) ==
PROVIDERS: PCP Internal Medicine; Visit Provider Nurse Practitioner Family
DX: K21.9 Gastro-esophageal reflux disease without esophagitis (principal); K76.0 Fatty (change of) liver, not elsewhere classified; R74.01 Elevation of levels of liver transaminase levels; K58.2 Mixed irritable bowel syndrome; K64.9 Unspecified hemorrhoids
CPT/HCPCS: 99213

== ENCOUNTER → 2023-08-21 11:54 | Outpatient (BNVA) | payer MEDICARE, MEDICAID, SELFPAY | PROVIDERS: PCP Internal Medicine; Visit Provider Nurse Practitioner Family | DX: K21.9 Gastro-esophageal reflux disease without esophagitis (principal); K76.0 Fatty (change of) liver, not elsewhere classified; R74.01 Elevation of levels of liver transaminase levels; K58.2 Mixed irritable bowel syndrome; K64.9 Unspecified hemorrhoids | CPT/HCPCS: 99212 ==

== ENCOUNTER 2023-08-26 14:09 | Outpatient (AMB) | payer MEDICARE, MEDICAID, SELFPAY ==
[2023-08-26 14:13] VITALS: BP 120/70; PULSE 76; O2SAT 95; BMI 33.5
--- NOTE | 2023-08-26 14:13 | MHC.OFFVIS ---
Intake Vital Signs 08/26/23 14:13 Height 5 ft 3 in Weight 189 lb BMI 33.5 BP 120/70 Blood Pressure Location Lt brachial Position Sitting Pulse 76 Pulse Source Pulse Oximeter Pulse Oximetry (%) 95 Oxygen Delivery Method Room Air Intake Visit Reasons: Asthma Intake Note: pt is here for follow up and states she is using the cpap, is tightening the straps as tight as she can. Pharmacy Technician Trainee Required: No Allergies paroxetine [From PAXIL] Allergy (Severe, Verified 08/26/23 14:48) BAD REACTION - HALLUCINATING varenicline [From CHANTIX] Allergy (Severe, Verified 08/26/23 14:48) BAD REACTION - HALLUCINATING, redness and itching Medication List - Last Reconciled 08/26/23 by Samuel Montejo MD albuterol sulfate 90 mcg/actuation (Ventolin HFA) 1 inh inhalation Q6H PRN albuterol sulfate 2.5 mg (3 mL) inhalation TID PRN 30 days cholecalciferol (vitamin D3) 50 mcg PO DAILY escitalopram oxalate 10 mg PO DAILY hydrocortisone 2.5% (Proctosol HC) 1 appl AL BID-QID PRN levothyroxine 88 mcg PO QAM 90 days omeprazole 20 mg PO DAILY oxybutynin chloride ER 10 mg PO DAILY 90 days Do you need a note to return to daycare/school/sports/work: No HPI Asthma HPI Details 58 YEARS OLD FEMALE IS HERE FOR FOLLOW-UP FOR SLEEP APNEA AND BRONCHIAL ASTHMA. SHE HAS BEEN USING HER CPAP VERY REGULARLY, ACTUALLY UP TO 8 HOURS PER NIGHT. THERE IS SOME AIR LEAK, AND SHE HAS TO ADJUST THE STRAPS. ON SOME NIGHTS EVEN THOUGH SHE DOES HAVE THE CPAP ON SHE JUST CANNOT SLEEP WELL. BREATHING HAS BEEN STABLE AND SHE USES ALBUTEROL ONLY INFREQUENTLY PFSH Medical History Transaminitis Tubular adenoma Diverticulosis GERD (gastroesophageal reflux disease) Anxiety and depression Asthma History of panic attacks TIARRA on CPAP Fatty liver IBS (irritable bowel syndrome) Restrictive lung disease Allergic rhinitis Hypothyroidism Overactive bladder Surgical History History of surgery on arm Hx of colonoscopy H/O esophagogastroduodenoscopy History of tubal ligation Hx of cholecystectomy History of elbow surgery Family History Mother Brain aneurysm Maternal Aunt Lung cancer Maternal Uncle Cancer Father Cancer of prostate Colon cancer Other Mental health disorder Social History Housing: Apartment Are you a primary assurance services manager health care to a significant other at home: No Alcohol intake: never Patient Tobacco Use Status: Former Tobacco user Tobacco use type: Cigarette Cigarettes Per Day: 7 Years Smoked: 40 e-Cigarette/Vaping Use: Never Used service: No Current occupational status: employed Cognitive needs: No Hearing needs: No Vision needs: No Female Reproductive History Menstrual Age of Menarche: 16 Review of Systems Const All systems reviewed & are unremarkable except as noted in HPI and below Eyes Reports no additional complaints ENT Reports nasal congestion (OFF AND ON, WORSE AT THE TIME OF CHANGING WEATHER SAYS) Card Reports no additional complaints Resp Reports as per HPI GI Reports no additional complaints Reports urinary incontinence (OVERACTIVE BLADDER) Musc Reports no additional complaints Skin/Breast Reports system reviewed and no additional complaints, except as documented Neuro Reports no additional complaints Psych Reports depression (BEING TREATED WITH MED) Physical Exam Vital Signs: Last Vital Signs Pulse 76 08/26/23 14:13 BP 120/70 08/26/23 14:13 Pulse Ox 95 08/26/23 14:13 Oxygen Delivery Method Room Air 08/26/23 14:13 BMI result Body Mass Index 33.5 Const General: comfortable, no acute distress, alert and awake Orientation/consciousness: patient oriented x3 HEENT Head: Yes normal to inspection General nose exam: No nasal polyps present, No nasal discharge present and Other nasal findings present (Mild nasal congestion) Face and sinus: Yes sinuses nontender Mouth: oropharynx normal Throat: Yes posterior oropharynx normal Eyes General: appearance normal, both eyes and all related structures Neck Neck: Yes normal visual inspection, Yes no lymphadenopathy, Yes trachea midline and Yes no JVD Thyroid: Thyroid normal Chest Chest palpation & inspection: normal inspection of the chest, normal palpation of entire chest wall and no tenderness Resp Other: Percussion note is resonant, she has good breath sounds on both sides, no wheezes rhonchi or crepitations are heard. Cardio Palpation: normal PMI Rate: regular rate Rhythm: regular rhythm Heart sounds: no gallops and no murmurs GI Palpation (GI): Soft to palpation, nontender, No hepatosplenomegaly present and no masses Auscultation: normal bowel sounds Back/Spine/Pelvis Thoracic/Lumbar Spine: thoracic and lumbar spine normal to inspection Skin General skin exam: no rashes or lesions noted Neuro General: patient oriented x3 and no focal motor deficits Cranial nerves: Yes CN's II-XII intact bilaterally Extrem General: Yes normal to inspection, Yes no clubbing, cyanosis or edema and Yes no calf tenderness Psych Appearance: grossly normal and well kempt Speech and movement: Normal speech and movement present Results Reviewed Results Reviewed: COMPLIANCE REPORT. IS REVIEWED FOR THE LAST 30 NIGHTS SHE USED 27/30 NIGHTS. AVERAGE USE PER NIGHT 9 HOURS 40 MINUTES. MEDIAN PRESSURE 8.2 95TH PERCENTILE 11.3. THERE WAS MILD TO MODERATE AMOUNT OF AIR LEAK. RESIDUAL AHI 1.0 Assessment & Plan Assessment & Plan (1) Sleep apnea with use of continuous positive airway pressure (CPAP): Comment: SHE DOES HAVE SLEEP APNEA FOR QUITE SOME TIME. SHE HAS BEEN USING THE CPAP MORE REGULARLY, AND SLEEPS WELL AT LEAST FOR 6 HOURS PER NIGHT. AGAIN STRESSED THAT SHE SHOULD CONTINUE TO USE THE CPAP EVERY NIGHT. USE WARM HUMIDIFICATION, REGULARLY. F U Q 6 MONTHS Code(s): G47.30 - Sleep apnea, unspecified (2) Obesity: Comment: SHE IS MODERATELY OBESE, THIS CAUSES THE MILD RESTRICTIVE LUNG DISEASE, WELL SLEEP APNEA. ENCOURAGED TO JOIN A WEIGHT MANAGEMENT PROGRAM AND KEEP LOSING SOME WEIGHT Code(s): E66.9 - Obesity, unspecified (3) Asthma, mild: Comment: BRONCHIAL ASTHMA, MILD INTERMITTENT, CONTROLLED AND STABLE AT THIS TIME. TX : MONTELUKAST 10 MG DAILY ALBUTEROL HFA 2 PUFFS Q 4-6 HOURS P.R.N. WHEN OUTDOORS . AND AT HOME SHE CAN USE THE ALBUTEROL SOLUTION IN NEBULIZER Q 4-6 HOURS P.R.N.. Code(s): J45.909 - Unspecified asthma, uncomplicated Coding Level of Care Code Est Pt Level 3 (24712) Diagnoses Sleep apnea with use of continuous positive airway pressure (CPAP) G47.30 Obesity E66.9 Asthma, mild J45.909
== END 2023-08-26 14:46 | disposition home or self-care (01) ==
PROVIDERS: PCP Internal Medicine; Visit Provider Internal Medicine
DX: G47.30 Sleep apnea, unspecified (principal); E66.9 Obesity, unspecified; J45.909 Unspecified asthma, uncomplicated
CPT/HCPCS: 99213

== ENCOUNTER → 2023-08-26 14:09 | Outpatient (BNVA) | payer MEDICARE, MEDICAID, SELFPAY | PROVIDERS: PCP Internal Medicine; Visit Provider Internal Medicine | DX: J45.909 Unspecified asthma, uncomplicated (principal); G47.30 Sleep apnea, unspecified; E66.9 Obesity, unspecified; Z68.33 Body mass index [BMI] 33.0-33.9, adult | CPT/HCPCS: 99212 ==

== ENCOUNTER 2023-10-14 10:59 | Outpatient (AMB) | payer MEDICARE, MEDICAID, SELFPAY ==
--- NOTE | 2023-10-14 11:04 | A.OFFPC_ITS ---
Vital Signs 10/14/23 11:06 Height 5 ft 3 in Weight 195 lb BMI 34.5 BP 120/82 Blood Pressure Location Lt brachial Position Sitting Pulse 70 Pulse Source Pulse Oximeter Pulse Oximetry (%) 97 Oxygen Delivery Method Room Air Intake Visit Reasons: Annual PE Allergies paroxetine [From PAXIL] Allergy (Severe, Verified 10/14/23 11:07) BAD REACTION - HALLUCINATING varenicline [From CHANTIX] Allergy (Severe, Verified 10/14/23 11:07) BAD REACTION - HALLUCINATING, redness and itching Medication List - Last Reconciled 10/14/23 by David Diaz MD escitalopram oxalate 10 mg PO DAILY hydrocortisone 2.5% (Proctosol HC) 1 appl ME BID-QID PRN levothyroxine 88 mcg PO QAM 90 days montelukast 10 mg PO DAILY 90 days omeprazole 20 mg PO DAILY oxybutynin chloride ER 10 mg PO DAILY 90 days Tobacco use date assessed: 10/14/23 Dental Screening Dental Screen Date: 10/14/23 Did you have a dental visit in the last 12 months?: No Was dental information given to patient?: Patient declined HPI Annual PE HPI Details Physical exam appointment Patient is a 58-year-old female Mammogram appointment is coming up Patient had colonoscopy consultation August of last year but has not had colonoscopy yet, she says that she still waiting a call from them OBGYN care is through Dr. Feldman Patient also sees [facility]rell [facility] for stress incontinence and is taking oxybutynin through the Medication through PCP office are Lexapro Levothyroxine 88 mcg Montelukast for allergies Omeprazole for chronic GERD BMI is elevated at 34.5 patient is having difficulty losing weight. Follow-up January [facility] Medical History Transaminitis Tubular adenoma Diverticulosis GERD (gastroesophageal reflux disease) Anxiety and depression Asthma History of panic attacks TIARRA on CPAP Fatty liver IBS (irritable bowel syndrome) Restrictive lung disease Allergic rhinitis Hypothyroidism Overactive bladder Surgical History History of surgery on arm Hx of colonoscopy H/O esophagogastroduodenoscopy History of tubal ligation Hx of cholecystectomy History of elbow surgery Family History Mother Brain aneurysm Maternal Aunt Lung cancer Maternal Uncle Cancer Father Cancer of prostate Colon cancer Other Mental health disorder Social History Housing: Apartment Are you a primary skin care specialist to a significant other at home: No Alcohol intake: never Patient Tobacco Use Status: Former Tobacco user Tobacco use type: Cigarette Cigarettes Per Day: 7 Years Smoked: 40 e-Cigarette/Vaping Use: Never Used service: No Current occupational status: employed Cognitive needs: No Hearing needs: No Vision needs: Yes Female Reproductive History Menstrual Age of Menarche: 16 Questionnaire Thrive Questionnaire Date Thrive assessed: 07/17/23 AUDIT C Alcohol Use Questionnaire (AUDIT-C) 1. How often do you have a drink containing alcohol?: Never Total Score: 0 AGATA-7 AMB Questionnaire AGATA-7 Date AGATA - 7 assessed: 07/17/23 Source: Developed by Drs. Miguel Reyes, Ashly Wong, Darvin Brownlee and colleagues, with an educational darlin from [employer]. Review of Systems Const Denies chills, Denies fever(s) and Denies headache(s) Eyes Denies blurry vision ENT Denies headache(s), Denies nasal discharge, Denies nasal obstruction, Denies odynophagia and Denies sinus pain Card Denies chest pain at rest and Denies chest pain with activity Resp Denies cough and Denies hemoptysis GI Denies diarrhea, Denies odynophagia, Denies vomiting and Denies hematemesis Reports as per HPI Musc Denies abnormal gait Skin/Breast Reports as per HPI Neuro Denies Neuro-related abnormal movements, Denies Abnormal speech present, Denies abnormal gait, Denies headache(s) and Denies Sensory deficit (Neuro) Psych Denies mood swings and Denies paranoia Endo Reports as per HPI Mahendra/Lymph Reports as per HPI Aller/Immun Reports as per HPI Physical exam (Primary Care) Vital Signs: Last Vital Signs Pulse 70 10/14/23 11:06 BP 120/82 10/14/23 11:06 Pulse Ox 97 10/14/23 11:06 Oxygen Delivery Method Room Air 10/14/23 11:06 BMI result Body Mass Index 34.5 Tobacco/Smoking Status: Tobacco use Status Tobacco use date assessed 10/14/23 10/14/23 11:07 Patient Tobacco Use Status Former Tobacco user 10/14/23 11:05 Tobacco use type Cigarette 10/14/23 11:05 e-Cigarette/Vaping Use Never Used 10/14/23 11:05 Thrive Assessment: Date of Thrive Assessment Date Thrive assessed 07/17/23 10/14/23 11:05 Const General: cooperative, comfortable and no acute distress Orientation/consciousness: patient oriented x3 HENMT Head: Yes normocephalic and Yes atraumatic Eyes General: appearance normal, both eyes and all related structures Pupils: Equal, round and reactive pupils present EOM: EOMs intact bilaterally Neck Neck: Yes supple and No lymphadenopathy Thyroid: Thyroid normal Lymphatic: no lymphadenopathy noted Resp Effort & Inspection: normal respiratory effort and able to speak in complete sentences Auscultation: clear to auscultation bilaterally Cardio Heart sounds: S1 normal heart sound present and S2 normal heart sound present GI Other: Mild discomfort suprapubic Palpation (GI): Soft to palpation and nontender Auscultation: normal bowel sounds General: Yes no CVA tenderness Back/Spine/Pelvis Back: no CVA tenderness Skin General skin exam: elasticity normal and turgor normal Neuro General: patient oriented x3 and gait normal Cranial nerves: Yes Equal, round and reactive pupils present Speech: No Abnormal speech present Sensory Exam: No Sensory deficit (Neuro) Coordination: tandem gait normal and Romberg test negative Extrem General: Yes normal exam except as noted and No edema Results AMB Urinalysis, Automated UA Leukoctes 0 Asaf/uL Last Edit by Ailin Arnold CMA on 10/14/23 11:33 UA Nitrite Negative Last Edit by Ailin Arnold CMA on 10/14/23 11:33 UA Urobilinogen 0.2 mg/dL Last Edit by Ailin Arnold CMA on 10/14/23 11:33 UA Protein 0 mg/dL Last Edit by Ailin Arnold CMA on 10/14/23 11:33 UA pH 6.0 Last Edit by Ailin Arnold CMA on 10/14/23 11:33 UA Blood 0 [place]/uL Last Edit by Ailin Arnold CMA on 10/14/23 11:33 UA Specific [place] 1.030 Last Edit by Ailin Arnold CMA on 10/14/23 11:33 UA Ketone Negative Last Edit by Ailin Arnold CMA on 10/14/23 11:33 UA Bilirubin 0 mg/dL Last Edit by Ailin Arnold CMA on 10/14/23 11:33 UA Glucose 0 mg/dL Last Edit by Ailin Arnold CMA on 10/14/23 11:33 Results Reviewed Results Reviewed: Laboratory Last Values Urine pH (Auto) 6.0 10/14/23 11:32 Specific [place] (Auto) 1.030 10/14/23 11:32 Urine Protein (Auto) 0 mg/dL 10/14/23 11:32 Glucose (UA)(Auto) 0 mg/dL 10/14/23 11:32 Urine Ketones (Auto) Negative 10/14/23 11:32 Urine Blood (Auto) 0 [place]/uL 10/14/23 11:32 Urine Nitrite (Auto) Negative 10/14/23 11:32 Urine Bilirubin (Auto) 0 mg/dL 10/14/23 11:32 Urine Urobilinogen (Auto) 0.2 mg/dL 10/14/23 11:32 Leukocyte Esterase (Auto) 0 Asaf/uL 10/14/23 11:32 Assessment and Plan Assessment & Plan (1) Encounter for general adult medical examination with abnormal findings: Code(s): Z00.01 - Encounter for general adult medical examination with abnormal findings (2) Major depression, recurrent: Code(s): F33.9 - Major depressive disorder, recurrent, unspecified Qualifiers: Active/Remission status: in partial remission Qualified Code(s): F33.41 - Major depressive disorder, recurrent, in partial remission (3) Allergic rhinitis: Code(s): J30.9 - Allergic rhinitis, unspecified Qualifiers: Allergic rhinitis seasonality: unspecified Allergic rhinitis trigger: unspecified Qualified Code(s): J30.9 - Allergic rhinitis, unspecified (4) Obesity due to excess calories: Code(s): E66.09 - Other obesity due to excess calories Qualifiers: Body mass index: BMI 34.0-34.9 Obesity classification: adult class 1 (BMI 30 - 34.9) Serious obesity comorbidity presence: without serious comorbidity Qualified Code(s): E66.09 - Other obesity due to excess calories; Z68.34 - Body mass index [BMI] 34.0-34.9, adult (5) Other specified hypothyroidism: Code(s): E03.8 - Other specified hypothyroidism (6) Anxiety, generalized: Code(s): F41.1 - Generalized anxiety disorder (7) LFT elevation: Code(s): R79.89 - Other specified abnormal findings of blood chemistry (8) Environmental allergies: Code(s): Z91.09 - Other allergy status, other than to drugs and biological substances (9) Bladder disorder: Code(s): N32.9 - Bladder disorder, unspecified Plan Physical exam appointment Patient is a 58-year-old female Mammogram appointment is coming up Patient had colonoscopy consultation August of last year but has not had colonoscopy yet, she says that she still waiting a call from them OBGYN care is through Dr. Feldman Patient also sees [facility] Worrell [facility] for stress incontinence and is t aking oxybutynin through the Medication through PCP office are Lexapro Levothyroxine 88 mcg Montelukast for allergies Omeprazole for chronic GERD BMI is elevated at 34.5 patient is having difficulty losing weight. Follow-up January Orders: Orders AMB Urinalysis Automated Today Z13.9 - Encounter for screening, unspecified Coding Level of Care Code Est Pt Prev Care 40-64y(93406) Diagnoses Encounter for general adult medical examination with abnormal findings Z00.01 Recurrent major depressive disorder, in partial remission F33.41 Active/Remission status: in partial remission Allergic rhinitis, unspecified seasonality, unspecified trigger J30.9 Allergic rhinitis seasonality: unspecified Allergic rhinitis trigger: unspecified Class 1 obesity due to excess calories without serious comorbidity with body mass index (BMI) of 34.0 to 34.9 in adult E66.09; Z68.34 Body mass index: BMI 34.0-34.9 Obesity classification: adult class 1 (BMI 30 - 34.9) Serious obesity comorbidity presence: without serious comorbidity Other specified hypothyroidism E03.8 Anxiety, generalized F41.1 LFT elevation R79.89 Environmental allergies Z91.09 Bladder disorder N32.9
[2023-10-14 11:06] VITALS: BP 120/82; PULSE 70; O2SAT 97; BMI 34.5
== END 2023-10-14 11:42 | disposition home or self-care (01) ==
LOC: HO.HMGC 10:59
PROVIDERS: PCP Internal Medicine; Visit Provider Internal Medicine
DX: Z00.00 Encounter for general adult medical examination without abnormal findings (principal); F33.41 Major depressive disorder, recurrent, in partial remission; E66.09 Other obesity due to excess calories; Z68.34 Body mass index [BMI] 34.0-34.9, adult; J30.9 Allergic rhinitis, unspecified; E03.8 Other specified hypothyroidism; N32.9 Bladder disorder, unspecified; F41.1 Generalized anxiety disorder; R79.89 Other specified abnormal findings of blood chemistry; Z91.09 Other allergy status, other than to drugs and biological substances
CPT/HCPCS: 81003; 99396

== ENCOUNTER 2023-11-05 11:48 | Outpatient (REF) | payer MEDICARE, MEDICAID, SELFPAY ==
--- NOTE | ~2023-11-05 | MM_ITS ---
EXAMINATION: MM SCREENING DIGITAL BREAST TOMOSYNTHESIS, BILATERAL CLINICAL INFORMATION: Screening. Asymptomatic. COMPARISON: Mammography: 09/01/2022, 08/29/2021, 05/22/2020, 03/28/2019 TECHNIQUE: Digital breast tomosynthesis is performed in both the craniocaudal and mediolateral oblique views along with computer-aided detection (CAD). Synthesized 2D images are generated from the tomosynthesis. A second left MLO with improved anterior compression submitted. FINDINGS: The breasts are heterogeneously dense, which may obscure small masses (ACR BI-RADS breast composition Category c). There are no suspicious masses, suspicious grouped calcifications, or areas of architectural distortion in either breast. The parenchymal pattern is stable from prior exams. No axillary or skin changes. MM/MM tomosynthesis screening BI IMPRESSION: No mammographic evidence of malignancy. No significant interval change. ASSESSMENT: BI-RADS BI-RADS 1 - Negative RECOMMENDATION: Routine annual mammography screening. 1 year F/U This examination should not preclude the clinical evaluation of a suspicious palpable abnormality. This patient's information was entered into a reminder system with a target due date for their next mammogram.
== END 2023-11-05 11:49 | disposition home or self-care (01) ==
LOC: HO.MAMMO 11:48
PROVIDERS: PCP Internal Medicine; Visit Provider Internal Medicine
DX: Z12.31 Encounter for screening mammogram for malignant neoplasm of breast (principal)
CPT/HCPCS: 77063; 77067

== ENCOUNTER → 2023-11-05 12:00 | Outpatient (BNV) | payer MEDICARE, MEDICAID, SELFPAY | PROVIDERS: PCP Internal Medicine; Visit Provider Radiology Diagnostic Radiology | DX: Z12.31 Encounter for screening mammogram for malignant neoplasm of breast (principal) | CPT/HCPCS: 77063; 77067 ==

== ENCOUNTER 2023-11-19 11:58 | Outpatient (REF) | payer MEDICARE, MEDICAID, SELFPAY ==
[2023-11-26 07:54] LABS: HPV mRNA E6/E7 rflx Not Detected (Not Detected)
== END 2023-11-19 11:59 | disposition home or self-care (01) ==
LOC: HO.LNP 11:58
PROVIDERS: PCP Internal Medicine; Visit Provider Obstetrics & Gynecology
DX: Z01.419 Encounter for gynecological examination (general) (routine) without abnormal findings (principal); Z11.51 Encounter for screening for human papillomavirus (HPV)
CPT/HCPCS: 87624; 88142; 99396

== ENCOUNTER 2023-11-19 11:58 | Outpatient (AMB) | payer MEDICARE, MEDICAID, SELFPAY ==
--- NOTE | 2023-11-19 12:01 | A.OFFVIS_ITS ---
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 No complaints. Last Pap/HPV was negative in 02/14 Last Mammogram was BI-RADS 1 in 11/21 Last colonoscopy was in 11/20 the recommendation was to repeat in 1-2 years [facility] Medical History Transaminitis Tubular adenoma Diverticulosis GERD (gastroesophageal reflux disease) Anxiety and depression Asthma History of panic attacks TIARRA on CPAP Fatty liver IBS (irritable bowel syndrome) Restrictive lung disease Allergic rhinitis Hypothyroidism Overactive bladder Surgical History History of surgery on arm Hx of colonoscopy H/O esophagogastroduodenoscopy History of tubal ligation Hx of cholecystectomy History of elbow surgery Family History Mother Brain aneurysm Maternal Aunt Lung cancer Maternal Uncle Cancer Father Cancer of prostate Colon cancer Other Mental health disorder Social History Housing: Apartment Are you a primary health care technician to a significant other at home: No Alcohol intake: never Patient Tobacco Use Status: Former Tobacco user Tobacco use type: Cigarette Cigarettes Per Day: 7 Years Smoked: 40 e-Cigarette/Vaping Use: Never Used service: No Current occupational status: employed Current occupation: [employer] Cognitive needs: No Hearing needs: No Vision needs: Yes Female Reproductive History Menstrual Age of Menarche: 16 Menopause type: natural Total pregnancies: 1 Full term: 1 Number of Living Children: 1 Date of last pap smear: 02/14/18 Date of Mammogram: 11/05/23 Review of Systems Const All systems reviewed & are unremarkable except as noted in HPI and below Card Reports as per HPI Resp Reports as per HPI GI Reports as per HPI and Reports no additional complaints Reports as per HPI Physical Exam Vital Signs: BMI result Body Mass Index 34.4 Const General: cooperative, healthy appearing and comfortable Chest Chest palpation & inspection: normal inspection of the chest and normal palp ation of entire chest wall Breast/axilla inspection: normal inspection of the breasts and normal inspection of the axillae Breast/axilla palpation: normal palpation of the breasts, normal palpation of the axillae and no axillary lymphadenopathy Resp Effort & Inspection: normal respiratory effort Auscultation: clear to auscultation bilaterally Percussion: percussion normal Cardio Palpation: normal PMI Rate: regular rate Rhythm: regular rhythm Heart sounds: no murmurs and no rubs Peripheral pulses: Peripheral pulses 2+ throughout GI Inspection: Yes normal to inspection Palpation (GI): Soft to palpation, nontender, no guarding, not rigid and No hepatosplenomegaly present Percussion: Yes normal to percussion Auscultation: normal bowel sounds Rectal Exam - Female: deferred General: Yes bladder normal to palpation External Female Exam: No lesion Speculum Exam - Vagina: normal appearance of the vagina, normal palpation, normal vaginal discharge and not erythematous Speculum Exam - Cervix: normal appearance of the cervix and normal palpation Bimanual exam- vagina & uterus: normal bimanual exam, normal palpation, uterine size normal, bladder normal to palpation, consistency normal and normal palpation Bimanual Exam- Adnexa, other: normal adnexae, no masses and no tenderness Assessment & Plan Assessment & Plan (1) Well woman exam: Code(s): Z01.419 - Encounter for gynecological examination (general) (routine) without abnormal findings Plan: Co testing done. Counseled the patient about the recommended dietary allowance of 1200 mg of Calcium & 600 IU of vitamin D. Instructions given the patient to schedule her next screen Mammogram in 11/22. The patient is in the process of scheduling her next screening colonoscopy . The patient was instructed to perform monthly self-breast exams and schedule annual exam in a year. All questions answered and the patient verbalized understanding. Coding Level of Care Code Est Pt Prev Care 40-64y(60267) Diagnoses Well woman exam Z01.419
[2023-11-19 12:03] VITALS: BP 120/70; BMI 34.4
== END 2023-11-19 12:21 | disposition home or self-care (01) ==
LOC: HO.HWS 11:58
PROVIDERS: PCP Internal Medicine; Visit Provider Obstetrics & Gynecology
DX: Z01.419 Encounter for gynecological examination (general) (routine) without abnormal findings (principal)
CPT/HCPCS: 99396

== ENCOUNTER 2023-11-24 12:27 | Outpatient (AMB) | payer MEDICARE, MEDICAID, SELFPAY ==
[2023-11-24 12:39] VITALS: BP 122/70; PULSE 73; TEMP 36.4; O2SAT 98; BMI 34.4
--- NOTE | 2023-11-24 12:39 | AM.OFFWIN_ITS ---
Intake Vital Signs 11/24/23 12:39 Height 5 ft 3 in Weight 194 lb BMI 34.4 BP 122/70 Blood Pressure Location Rt brachial Position Sitting Pulse 73 Pulse Source Pulse Oximeter Temp 97.6 F Temp Source Temporal Artery Scan Pulse Oximetry (%) 98 Oxygen Delivery Method Room Air Intake Visit Reasons: EP ? Cotton ball in ear [phone] Intake Note: pt is here for c/o cotton ball in left ear, 5x days Patient Tobacco Use Status: Former Tobacco user Allergies paroxetine [From PAXIL] Allergy (Severe, Verified 11/24/23 13:17) BAD REACTION - HALLUCINATING varenicline [From CHANTIX] Allergy (Severe, Verified 11/24/23 13:17) BAD REACTION - HALLUCINATING, redness and itching Medication List - Last Reconciled 11/24/23 by Italo Art MD escitalopram oxalate 10 mg PO DAILY hydrocortisone 2.5% (Proctosol HC) 1 appl SD BID-QID PRN levothyroxine 88 mcg PO QAM 90 days montelukast 10 mg PO DAILY 90 days omeprazole 20 mg PO DAILY oxybutynin chloride ER 10 mg PO DAILY 90 days Do you need a note to return to daycare/school/sports/work: Yes HPI EP ? Cotton ball in ear [phone] HPI Details 58-year-old female presents to the offic e for a sick visit. Patient believes she has a piece of cotton left in her right ear. She was trying to clean it with a Q-tip. [facility] Medical History Transaminitis Tubular adenoma Diverticulosis GERD (gastroesophageal reflux disease) Anxiety and depression Asthma History of panic attacks TIARRA on CPAP Fatty liver IBS (irritable bowel syndrome) Restrictive lung disease Allergic rhinitis Hypothyroidism Overactive bladder Surgical History History of surgery on arm Hx of colonoscopy H/O esophagogastroduodenoscopy History of tubal ligation Hx of cholecystectomy History of elbow surgery Family History Mother Brain aneurysm Maternal Aunt Lung cancer Maternal Uncle Cancer Father Cancer of prostate Colon cancer Other Mental health disorder Social History Housing: Apartment Are you a primary laboratory animal care veterinarian to a significant other at home: No Alcohol intake: never Patient Tobacco Use Status: Former Tobacco user Tobacco use type: Cigarette Cigarettes Per Day: 7 Years Smoked: 40 e-Cigarette/Vaping Use: Never Used service: No Current occupational status: employed 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 Assessment & Plan Assessment & Plan (1) Foreign body in ear: Code(s): T16.9XXA - Foreign body in ear, unspecified ear, initial encounter Plan: Patient tolerated the procedure well. It was removed without any difficulty. Coding Level of Care Code Est Pt Level 3 (86139) Diagnoses Foreign body in ear T16.9XXA
== END 2023-11-24 15:13 | disposition home or self-care (01) ==
PROVIDERS: PCP Internal Medicine; Visit Provider Internal Medicine
DX: T16.2XXA Foreign body in left ear, initial encounter (principal)
CPT/HCPCS: 69200; 99213

== ENCOUNTER 2023-12-29 09:39 | Outpatient (AMB) | payer MEDICARE, MEDICAID, SELFPAY ==
[2023-12-29 09:48] VITALS: BP 110/70; PULSE 83; TEMP 36.3; O2SAT 96; BMI 33.3
--- NOTE | 2023-12-29 09:48 | MHC.OFFWIV ---
Intake Vital Signs 12/29/23 09:48 Height 5 ft 3 in Weight 85.275 kg BMI 33.3 BP 110/70 Blood Pressure Location Lt brachial Position Sitting Pulse 83 Pulse Source Pulse Oximeter Temp 97.4 F Temp Source Temporal Artery Scan Pulse Oximetry (%) 96 Oxygen Delivery Method Room Air Intake Visit Reasons: EST/cough and head pain (lobby masked) Intake Note: pt is here today for cough and head pain started thursday Patient Tobacco Use Status: Former Tobacco user Allergies paroxetine [From PAXIL] Allergy (Severe, Verified 12/29/23 09:49) BAD REACTION - HALLUCINATING varenicline [From CHANTIX] Allergy (Severe, Verified 12/29/23 09:49) BAD REACTION - HALLUCINATING, redness and itching Do you need a note to return to daycare/school/sports/work: Yes HPI HPI Comments History of Present Illness Details 1003 58 year old female history of restrictive lung disease, GERD, obesity, sleep apnea on CPAP, anxiety, fatty liver, depression presents w/ fatigue, malaise, myalgias, cough, headache X 4 days not improving. No sick contacts lives alone. Denies fevers, chills, neck pain, CP, sob, N/V/D, abd pain. PE benign no meningeal signs Likely viral versus bronchitis versus allergy versus sinusitis. Unlikely PNA, PE, ACS, ARDS, disection, meningitis, encephalitis. No signs of ich, stroke, posterior storke NIHSS0 Plan- supportive measurese. inhaler. Educated patient on diagnosis and treatment plan, answered all question, patient verbalizes understanding. At this time patient will be discharged home, advised to return with new or worsening symptoms. Educated on worrisome signs and symptoms and when to return. At this time I feel comfortable discharge home. [facility] Medical History Transaminitis Tubular adenoma Diverticulosis GERD (gastroesophageal reflux disease) Anxiety and depression Asthma History of panic attacks TIARRA on CPAP Fatty liver IBS (irritable bowel syndrome) Restrictive lung disease Allergic rhinitis Hypothyroidism Overactive bladder Surgical History History of surgery on arm Hx of colonoscopy H/O esophagogastroduodenoscopy History of tubal ligation Hx of cholecystectomy History of elbow surgery Family History Mother Brain aneurysm Maternal Aunt Lung cancer Maternal Uncle Cancer Father Cancer of prostate Colon cancer Other Mental health disorder Social History Housing: Apartment Are you a primary medical care manager to a significant other at home: No Alcohol intake: never Patient Tobacco Use Status: Former Tobacco user Tobacco use type: Cigarette Cigarettes Per Day: 7 Years Smoked: 40 e-Cigarette/Vaping Use: Never Used service: No Current occupational status: employed 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 Oriented X3.? No acute distress.? Head: Normocephalic, atraumatic, no step-offs or deformities Eyes: Pupils equal, round and reactive to light.? Neck: Normal inspection.? Neck supple.? CVS: Normal heart rate and rhythm.? Pulses normal.? Respiratory: No respiratory distress.? Breath sounds normal.? Abdomen: Soft and nontender.? Skin: Skin warm and dry.? Normal skin color.? Normal skin turgor.? Extremities: No lower extremity edema.? No calf ttp. 5/5 strength to bilateral upper and lower extremities Neuro: Oriented X 3.? No motor deficit.? No sensory deficit. CN 2-12 intact . Ambulatory steady gait normal coordination. Normal [id number], [id number]. Negative Romberg and pronator drift Assessment & Plan Assessment & Plan (1) Bronchitis: Code(s): J40 - Bronchitis, not specified as acute or chronic Plan Take your medications as prescribed. If you were prescribed antibiotics today, it is important that you take your medication to their entirety, do not skip any doses, do not finish them early. Follow-up with your primary care provider this week. Return to the emergency department with new or worsening symptoms. Such as fevers, chills, chest pain, shortness of breath, nausea, vomiting, dizziness, headache, vision changes, lethargy In case of emergency call 911 Orders: Orders SARS-CoV2/FLU/RSV Today B34.9 - Viral infection, unspecified Medications: New albuterol sulfate 90 mcg/actuation 2 puffs inhalation Q6H PRN 6.7 grams 0RF shortness of breath or wheezing prednisone 40 mg (2 x 20 mg) PO DAILY 10 tabs 0RF 5 days azithromycin For 250 mg dose pack: take 500 mg today (day 1), then 250 mg for 4 days (days 2-5) PO 6 tabs 0RF Coding Level of Care Code Est Pt Level 3 (50259) Diagnoses Bronchitis J40
== END 2023-12-29 11:31 | disposition home or self-care (01) ==
PROVIDERS: PCP Internal Medicine; Visit Provider Physician Assistant
DX: J40 Bronchitis, not specified as acute or chronic (principal)
CPT/HCPCS: 99213

== ENCOUNTER 2023-12-29 14:11 | Outpatient (REF) | payer MEDICARE, MEDICAID, SELFPAY ==
[2023-12-29 14:58] LABS: Influenza A PCR POSITIVE (Negative); Influenza B PCR NEGATIVE (Negative); Resp Syncy Virus RNA Qual PCR NEGATIVE (Negative); SARS COV2 PCR INHOUSE NEGATIVE (Negative)
== END 2023-12-29 14:12 | disposition home or self-care (01) ==
LOC: HO.LNP 14:11
PROVIDERS: Visit Provider Physician Assistant
DX: B34.9 Viral infection, unspecified (principal); Z11.52 Encounter for screening for COVID-19; Z20.828 Contact with and (suspected) exposure to other viral communicable diseases
CPT/HCPCS: 0241U

== ENCOUNTER 2024-02-03 14:16 | Outpatient (AMB) | payer MEDICARE, MEDICAID, SELFPAY ==
--- NOTE | 2024-02-03 14:20 | MHC.OFFWIV ---
Intake Vital Signs 02/03/24 14:21 Height 5 ft 3 in Weight 194 lb BMI 34.4 BP 118/72 Blood Pressure Location Lt brachial Position Sitting Pulse 74 Pulse Source Pulse Oximeter Temp 97.2 F Temp Source Temporal Artery Scan Pulse Oximetry (%) 98 Oxygen Delivery Method Room Air Intake Visit Reasons: EST/left ear pain (lobby) Intake Note: pt is here today for lft ear pain started 12/29 Patient Tobacco Use Status: Former Tobacco user Allergies paroxetine [From PAXIL] Allergy (Severe, Verified 02/03/24 14:27) BAD REACTION - HALLUCINATING varenicline [From CHANTIX] Allergy (Severe, Verified 02/03/24 14:27) BAD REACTION - HALLUCINATING, redness and itching Do you need a note to return to daycare/school/sports/work: No HPI HPI Comments History of Present Illness Details 58 y/o female patient who presents to walk in clinic with c/o left ear itching on/off since November. She has been using Qtips to clean ears with. Denies hearing loss. Denies pain or discharge. [facility] Medical History Transaminitis Tubular adenoma Diverticulosis GERD (gastroesophageal reflux disease) Anxiety and depression Asthma History of panic attacks TIARRA on CPAP Fatty liver IBS (irritable bowel syndrome) Restrictive lung disease Allergic rhinitis Hypothyroidism Overactive bladder Surgical History History of surgery on arm Hx of colonoscopy H/O esophagogastroduodenoscopy History of tubal ligation Hx of cholecystectomy History of elbow surgery Family History Mother Brain aneurysm Maternal Aunt Lung cancer Maternal Uncle Cancer Father Cancer of prostate Colon cancer Other Mental health disorder Social History Housing: Apartment Are you a primary transition of care specialist to a significant other at home: No Alcohol intake: never Patient Tobacco Use Status: Former Tobacco user Tobacco use type: Cigarette Cigarettes Per Day: 7 Years Smoked: 40 e-Cigarette/Vaping Use: Never Used service: No Current occupational status: employed 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 Cognitive needs: No Hearing needs: No Vision needs: Yes Female Reproductive History Menstrual Age of Menarche: 16 Review of Systems Const All systems reviewed & are unremarkable except as noted in HPI and below Physical Exam Vital Signs: Last Vital Signs Temp 97.2 F 02/03/24 14:21 Pulse 74 02/03/24 14:21 BP 118/72 02/03/24 14:21 Pulse Ox 98 02/03/24 14:21 Oxygen Delivery Method Room Air 02/03/24 14:21 BMI result Body Mass Index 34.4 Const General: comfortable and no acute distress Orientation/consciousness: patient oriented x3 HEENT Head: Yes normocephalic Ears: external ears normal, TM abnormal obstructed by cerumen and unable to visualize TM bilaterally General nose exam: Normal nasal mucous membranes and turbinates present Face and sinus: Yes sinuses nontender Eyes Pupils: Equal, round and reactive pupils present Neuro General: patient oriented x3 and gait normal Cranial nerves: Yes Equal, round and reactive pupils present Psych Speech and movement: Clear speech present Office Procedures Cerumen Removal From which ear canal was the cerumen removed: bilateral Removal: irrigation Notes: patient tolerated procedure well [id number] Irrigation/Lavage Assessment & Plan Assessment & Plan (1) Cerumen impaction: Code(s): H61.20 - Impacted cerumen, unspecified ear Qualifiers: Laterality: bilateral Qualified Code(s): H61.23 - Impacted cerumen, bilateral Plan: - Ear irrigation in Office. (2) Ear itch: Code(s): L29.9 - Pruritus, unspecified Plan: - Fluocinolone Otic to stop itching - Use medicine as directed. Medications: New fluocinolone acetonide oil 0.01% 5 drps otic (ear) left BID 20 mL 0RF 7 days L29.9 - Pruritus, unspecified Coding Level of Care Code Est Pt Level 3 (25934) Diagnoses Bilateral impacted cerumen H61.23 Laterality: bilateral Ear itch L29.9 CPT Codes Office Procedure - CPT: [id number] Irrigation/Lavage ([id number]) Time Spent (min) 15
[2024-02-03 14:21] VITALS: BP 118/72; PULSE 74; TEMP 36.2; O2SAT 98; BMI 34.4
== END 2024-02-03 15:08 | disposition home or self-care (01) ==
PROVIDERS: PCP Internal Medicine; Visit Provider Nurse Practitioner Family
DX: H61.23 Impacted cerumen, bilateral (principal); L29.9 Pruritus, unspecified
CPT/HCPCS: 69209; 99213

== ENCOUNTER 2024-02-17 13:42 | Outpatient (AMB) | payer MEDICARE, MEDICAID, SELFPAY ==
[2024-02-17 13:44] VITALS: BP 112/68; PULSE 71; O2SAT 96; BMI 35.1
--- NOTE | 2024-02-17 13:44 | MHC.PC.OV ---
Vital Signs 02/17/24 13:44 Height 5 ft 3 in Weight 198 lb 2 oz BMI 35.1 BP 112/68 Blood Pressure Location Rt brachial Position Sitting Pulse 71 Pulse Source Pulse Oximeter Pulse Oximetry (%) 96 Oxygen Delivery Method Room Air Intake Visit Reasons: follow up Allergies paroxetine [From PAXIL] Allergy (Severe, Verified 02/17/24 13:45) BAD REACTION - HALLUCINATING varenicline [From CHANTIX] Allergy (Severe, Verified 02/17/24 13:45) BAD REACTION - HALLUCINATING, redness and itching Medication List - Last Reconciled 02/17/24 by David Diaz MD albuterol sulfate 90 mcg/actuation 2 puffs inhalation Q6H PRN escitalopram oxalate 10 mg PO DAILY levothyroxine 88 mcg PO QAM 90 days montelukast 10 mg PO DAILY 90 days omeprazole 20 mg PO DAILY oxybutynin chloride ER 10 mg PO DAILY 90 days Tobacco use date assessed: 02/17/24 Dental Screening Dental Screen Date: 02/17/24 Did you have a dental visit in the last 12 months?: Yes Did you have a dental problem in the last 6 months where you did not have access to dental care?: No Was dental information given to patient?: Patient has dentist HPI follow up HPI Details Patient is a 58-year-old female came in for her regular follow-up appointment Due for labs, last set of labs was June of last year Depression is stable with ecitalopram, it is through PCP office , she does not know the dose but taking 1 and half tablet Allergies are stable with singular. And loratadine Bladder disorder: Incontinence stable with oxybutynin. GERD is stable with omeprazole patient is due for labs Hypothyroidism: Continue levothyroxine 88 mcg Albuterol inhaler as needed. I see that Gastroenterology and pulmonary appointment is coming up this month Patient says that Gastro appointment is to talk but colonoscopy Her breathing is stable she is using albuterol only as needed now Follow-up 3 months PFSH Medical History Transaminitis Tubular adenoma Diverticulosis GERD (gastroesophageal reflux disease) Anxiety and depression Asthma History of panic attacks TIARRA on CPAP Fatty liver IBS (irritable bowel syndrome) Restrictive lung disease Allergic rhinitis Hypothyroidism Overactive bladder Surgical History History of surgery on arm Hx of colonoscopy H/O esophagogastroduodenoscopy History of tubal ligation Hx of cholecystectomy History of elbow surgery Family History Mother Brain aneurysm Maternal Aunt Lung cancer Maternal Uncle Cancer Father Cancer of prostate Colon cancer Other Mental health disorder Social History Housing: Apartment Are you a primary palliative care nurse to a significant other at home: No Alcohol intake: never Patient Tobacco Use Status: Former Tobacco user Tobacco use type: Cigarette Cigarettes Per Day: 7 Years Smoked: 40 Packs per year/per ci.00 e-Cigarette/Vaping Use: Never Used service: No Current occupational status: employed 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 How often do you have a drink containing alcohol?: Never 3. How often do you have six or more drinks on one occasion?: Never Total Score: 0 Score Reviewed/Action Taken: Yes AGATA-7 AMB Questionnaire AGATA-7 Date AGATA - 7 assessed: 07/17/23 Source: Developed by Drs. Miguel Reyes, Ashly Wong, Darvin Brownlee and colleagues, with an educational darlin from [employer]. Review of Systems Const Denies chills and Denies fever(s) ENT Denies epistaxis and Denies nasal discharge Card Denies chest pain Resp Denies chest congestion, Denies cough and Denies hemoptysis GI Denies diarrhea and Denies nausea Skin/Breast Denies rash Neuro Reports no additional complaints Psych Reports no additional complaints Endo Reports no additional complaints Physical exam (Primary Care) Vital Signs: Last Vital Signs Pulse 71 02/17/24 13:44 BP 112/68 02/17/24 13:44 Pulse Ox 96 02/17/24 13:44 Oxygen Delivery Method Room Air 02/17/24 13:44 BMI result Body Mass Index 35.1 Tobacco/Smoking Status: Tobacco use Status Tobacco use date assessed 02/17/24 02/17/24 13:47 Patient Tobacco Use Status Former Tobacco user 02/17/24 13:47 Tobacco use type Cigarette 02/17/24 13:47 e-Cigarette/Vaping Use Never Used 02/17/24 13:47 Thrive Assessment: Date of Thrive Assessment Date Thrive assessed 07/17/23 02/17/24 13:47 Const General: cooperative, comfortable and no acute distress Orientation/consciousness: patient oriented x3 HENMT Head: Yes normocephalic Eyes General: appearance normal, both eyes and all related structures Neck Neck: Yes supple Resp Effort & Inspection: normal respiratory effort, no cough and no stridor Cardio Rhythm: regular rhythm Heart sounds: S1 normal heart sound present and S2 normal heart sound present Skin General skin exam: turgor normal Neuro General: patient oriented x3, tone normal and moves all extremities Extrem Right lower extremity: no edema Left lower extremity: no edema Assessment and Plan Assessment & Plan (1) Other specified hypothyroidism: Code(s): E03.8 - Other specified hypothyroidism (2) Anxiety, generalized: Code(s): F41.1 - Generalized anxiety disorder (3) Major depression, recurrent: Code(s): F33.9 - Major depressive disorder, recurrent, unspecified Qualifiers: Active/Remission status: in partial remission Qualified Code(s): F33.41 - Major depressive disorder, recurrent, in partial remission (4) Allergic rhinitis: Code(s): J30.9 - Allergic rhinitis, unspecified Qualifiers: Allergic rhinitis trigger: unspecified Allergic rhinitis seasonality: unspecified Qualified Code(s): J30.9 - Allergic rhinitis, unspecified (5) LFT elevation: Code(s): R79.89 - Other specified abnormal findings of blood chemistry (6) Bladder disorder: Code(s): N32.9 - Bladder disorder, unspecified Plan Patient is a 58-year-old female came in for her regular follow-up appointment Due for labs, last set of labs was June of last year Depression is stable with ecitalopram, it is through PCP office , she does not know the dose but taking 1 and half tablet Allergies are stable with singular. And loratadine Bladder disorder: Incontinence stable with oxybutynin. GERD is stable with omeprazole patient is due for labs Hypothyroidism: Continue levothyroxine 88 mcg Albuterol inhaler as needed. I see that Gastroenterology and pulmonary appointment is coming up this month Patient says that Gastro appointment is to talk but colonoscopy Her breathing is stable she is using albuterol only as needed now Follow-up 3 months Orders: Orders Complete Blood Count Auto Diff Today E03.8 - Other specified hypothyroidism, F33.9 - Major depressive disorder, recurrent, unspecified, F41.1 - Generalized anxiety disorder, J30.9 - Allergic rhinitis, unspecified, N32.9 - Bladder disorder, unspecified, R79.89 - Other specified abnormal findings of blood chemistry Comprehensive Met. Panel Today E03.8 - Other specified hypothyroidism, F33.9 - Major depressive disorder, recurrent, unspecified, F41.1 - Generalized anxiety disorder, J30.9 - Allergic rhinitis, unspecified, N32.9 - Bladder disorder, unspecified, R79.89 - Other specified abnormal findings of blood chemistry LDL Cholesterol Direct Today E03.8 - Other specified hypothyroidism, F33.9 - Major depressive disorder, recurrent, unspecified, F41.1 - Generalized anxiety disorder, J30.9 - Allergic rhinitis, unspecified, N32.9 - Bladder disorder, unspecified, R79.89 - Other specified abnormal findings of blood chemistry TSH reflex Free T4 Today E03.8 - Other specified hypothyroidism, F33.9 - Major depressive disorder, recurrent, unspecified, F41.1 - Generalized anxiety disorder, J30.9 - Allergic rhinitis, unspecified, N32.9 - Bladder disorder, unspecified, R79.89 - Other specified abnormal findings of blood chemistry Coding Level of Care Code Est Pt Level 4 (78901) Diagnoses Other specified hypothyroidism E03.8 Anxiety, generalized F41.1 Recurrent major depressive disorder, in partial remission F33.41 Active/Remission status: in partial remission Allergic rhinitis, unspecified seasonality, unspecified trigger J30.9 Allergic rhinitis trigger: unspecified Allergic rhinitis seasonality: unspecified LFT elevation R79.89 Bladder disorder N32.9
== END 2024-02-17 14:55 | disposition home or self-care (01) ==
PROVIDERS: PCP Internal Medicine; Visit Provider Internal Medicine
DX: E03.8 Other specified hypothyroidism (principal); F41.1 Generalized anxiety disorder; F33.41 Major depressive disorder, recurrent, in partial remission; J30.9 Allergic rhinitis, unspecified; R79.89 Other specified abnormal findings of blood chemistry; N32.9 Bladder disorder, unspecified
CPT/HCPCS: 99214

== ENCOUNTER 2024-02-17 14:07 | Outpatient (REF) | payer MEDICARE, MEDICAID, SELFPAY ==
[2024-02-17 16:16] LABS: MANUAL DIFF FLAG NO
[2024-02-17 16:26] LABS: Basophils Absolute Auto 0.1 X10*3/uL (0.0-0.2); Basophils Percent Auto 0.6 % (0-2); Eosinophils Absolute Auto 0.1 X10*3/uL (0.0-0.4); Eosinophils Percent Auto 1.4 % (0-4); Hematocrit 42.4 % (37.0-47.0); Hemoglobin 13.9 g/dl (12.0-16.0); Imm Gran Abs Auto 0.03 X10*3/uL (0.00-0.03); Imm Gran Pct Auto 0.3 % (0.0-0.4); Lymphocytes Absolute Auto 3.5 X10*3/uL (1.2-4.9); Mean Corpuscular HGB Conc 32.8 g/dl (31.0-35.0); Mean Corpuscular Hemoglobin 27.8 pg (27.0-33.0); Mean Corpuscular Volume 84.8 fL (80.0-98.0); Mean Platelet Volume 9.9 fL (9.4-12.3); Monocytes Absolute Auto 0.5 X10*3/uL (0.1-1.2); Monocytes Percent Auto 5.8 % (2-11); Neutrophils Absolute Auto 4.8 x10*3/uL (2.0-8.3); Neutrophils Percent Auto 52.9 % (45-73); Platelet Count 252 X10*3/uL (160-400); Red Cell Distribution Width 13.5 % (11.0-16.0)
[2024-02-17 16:54] LABS: Alanine Aminotransferase 45 U/L (0-31); Albumin Level 4.1 g/dL (3.5-5.0); Alkaline Phosphatase 71 U/L (39-117); Anion Gap 12 (12-20); Aspartate Amino Transferase 28 U/L (5-31); Bilirubin Total 0.3 mg/dL (0.0-1.0); Blood Urea Nitrogen 15 mg/dL (9-16); Calcium 9.3 mg/dL (8.4-10.2); Carbon Dioxide 26 mmol/L (22-29); Chloride 107 mmol/L (96-108); Estimated Glomerular Filt Rate > 60; Glucose Random 171 mg/dL (60-115); Potassium 3.8 mmol/L (3.3-5.1); Sodium 141 mmol/L (135-145); Total Protein 7.3 g/dL (6.5-8.0)
[2024-02-17 16:57] LABS: TSH reflex Free T4 1.76 uIU/mL (0.32-4.0)
[2024-02-19 15:03] LABS: LDL Cholesterol Direct 134 mg/dL (<100)
== END 2024-02-17 14:08 | disposition home or self-care (01) ==
LOC: HO.HMGCLDS 14:07
PROVIDERS: PCP Internal Medicine; Visit Provider Internal Medicine
DX: F33.9 Major depressive disorder, recurrent, unspecified (principal); J30.9 Allergic rhinitis, unspecified; E03.8 Other specified hypothyroidism; F41.1 Generalized anxiety disorder; R79.89 Other specified abnormal findings of blood chemistry; N32.9 Bladder disorder, unspecified
CPT/HCPCS: 36415; 80053; 83721; 84443; 85025

== ENCOUNTER 2024-02-19 11:53 | Outpatient (AMB) | payer MEDICARE, MEDICAID, SELFPAY ==
--- NOTE | 2024-02-19 12:03 | A.OFFVIS_ITS ---
Intake Vital Signs 02/19/24 12:06 Height 5 ft 3 in Weight 194 lb BMI 34.4 BP 112/74 Blood Pressure Location Lt brachial Position Sitting Pulse 69 Intake Visit Reasons: 6 month follow up Intake Note: Patient follow up for fatty liver Patient denies any GI issues for today. Design Manager Required: No Accompanied by: Self / Same As Patient Allergies paroxetine [From PAXIL] Allergy (Severe, Verified 02/19/24 12:03) BAD REACTION - HALLUCINATING varenicline [From CHANTIX] Allergy (Severe, Verified 02/19/24 12:03) BAD REACTION - HALLUCINATING, redness and itching HPI 6 month follow up HPI Details LAST VISIT GERD (gastroesophageal reflux disease) Fatty liver Transaminitis IBS (irritable bowel syndrome) Hemorrhoid Plan Discussed with patient the importance of avoiding dietary triggers and late night snacking. Avoiding food that causes postprandial abdominal bloating and loose stools. Low FODMAP diet discussed with patient. Patient was encouraged to avoid meals late at night at least 3 hours before bedtime. Patient was started on omeprazole. Patient reports that she moves her bowels better by increasing fluid and activity to promote better bowel mobility. The importance of losing weight discussed with patient. I will see patient in 6 months to discuss go for colonoscopy. Patient is agreeable to this plan and verbalizes understanding of instructions. She was given the opportunity to ask questions and all questions answered. ? Thank you for allowing me to participate in her care Medications New omeprazole 20 mg PO DAILY 90 caps 2RF K21.9 Refilled hydrocortisone 2.5% (Proctosol HC) 1 appl MT BID-QID PRN 30 grams 3RF hemor rhoids TODAY'S VISIT Patient is here today for follow-up and to discuss going for colonoscopy. Patient reports that when she started taking omeprazole daily and she reports that she is feeling better. Patient continues to occasionally have chocolates and spicy food sometimes. However she does report that her symptoms are controlled for the most part. Patient reports that she is moving her bowels better. She realizes that she needs to move her bowels before going for colonoscopy. Patient denies any issues with anesthesia in the past. Suboptimal prep last colonoscopy. No history of sleep apnea. Patient is not on any anticoagulation medication. Denies any cardiac or respiratory symptoms. Mildly increased liver enzyme, patient reports that she gained weight as she is not really doing much of exercise. Patient reports that she has a stationary bike at home and she will try to use it. [facility] Medical History Transaminitis Tubular adenoma Diverticulosis GERD (gastroesophageal reflux disease) Anxiety and depression Asthma History of panic attacks TIARRA on CPAP Fatty liver IBS (irritable bowel syndrome) Restrictive lung disease Allergic rhinitis Hypothyroidism Overactive bladder Surgical History History of surgery on arm Hx of colonoscopy H/O esophagogastroduodenoscopy History of tubal ligation Hx of cholecystectomy History of elbow surgery Family History Mother Brain aneurysm Maternal Aunt Lung cancer Maternal Uncle Cancer Father Cancer of prostate Colon cancer Other Mental health disorder Social History Housing: Apartment Are you a primary animal care supervisor to a significant other at home: No Alcohol intake: never Patient Tobacco Use Status: Former Tobacco user Tobacco use type: Cigarette Cigarettes Per Day: 7 Years Smoked: 40 e-Cigarette/Vaping Use: Never Used service: No Current occupational status: employed 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 Cognitive needs: No Hearing needs: No Vision needs: Yes Female Reproductive History Menstrual Age of Menarche: 16 Review of Systems Const Denies weight gain and Denies weight loss ENT Reports no additional complaints, Denies dysphagia and Denies odynophagia Card Reports no additional complaints Resp Reports no additional complaints GI Denies abdominal pain, Denies belching, Denies melena, Denies bloating, Denies change in bowel habits, Denies dysphagia, Denies excessive flatus, Denies dyspepsia, Denies heartburn, Denies diarrhea, Denies loose stools, Denies nausea, Denies odynophagia and Denies vomiting Musc Reports no additional complaints Neuro Reports no additional complaints Psych Reports no additional complaints Endo Reports no additional complaints Physical Exam Vital Signs: Last Vital Signs Pulse 69 02/19/24 12:06 BP 112/74 02/19/24 12:06 BMI result Body Mass Index 34.4 Const General: healthy appearing, no acute distress and well developed Nutritional Appearance: obese Orientation/consciousness: patient oriented x3 Resp Effort & Inspection: normal respiratory effort, able to speak in complete sentences, no tracheal deviation and symmetric chest movement Auscultation: clear to auscultation bilaterally Cardio Rate: regular rate GI Inspection: Yes normal to inspection, No distended and Yes obesity Palpation (GI): Soft to palpation, not firm, nontender and No hepatosplenomegaly present Auscultation: normal bowel sounds General: Yes no CVA tenderness Back/Spine/Pelvis Back: no CVA tenderness Skin General skin exam: elasticity normal, turgor normal and dry skin Neuro General: patient oriented x3 Psych Appearance: grossly normal Mental Status: mental status grossly normal Affect: normal affect Assessment & Plan Assessment & Plan (1) GERD (gastroesophageal reflux disease): Code(s): K21.9 - Gastro-esophageal reflux disease without esophagitis Qualifiers: Esophagitis presence: esophagitis presence not specified Qualified Code(s): K21.9 - Gastro-esophageal reflux disease without esophagitis (2) Fatty liver: Code(s): K76.0 - Fatty (change of) liver, not elsewhere classified (3) Transaminitis: Code(s): R74.01 - Elevation of levels of liver transaminase levels (4) IBS (irritable bowel syndrome): Code(s): K58.9 - Irritable bowel syndrome without diarrhea Qualifiers: Irritable bowel syndrome type: without diarrhea Qualified Code(s): K58.9 - Irritable bowel syndrome without diarrhea (5) Hemorrhoid: Code(s): K64.9 - Unspecified hemorrhoids Qualifiers: Hemorrhoid type: unspecified Qualified Code(s): K64.9 - Unspecified hemorrhoids (6) Screen for colon cancer: Code(s): Z12.11 - Encounter for screening for malignant neoplasm of colon (7) Tubular adenoma of colon: Code(s): D12.6 - Benign neoplasm of colon, unspecified Plan Patient will be scheduled for colonoscopy. Tubular adenoma on last colonoscopy, however patient had suboptimal prep and will need to repeat colonoscopy. We will try Dulcolax tablets for 1 week before procedure every evening and then 4 tablets at noon day before procedure. Long discussion with patient avoiding food that day before procedure clear liquid diet only. Discussed with patient also what to expect before during and after procedure. Patient denies any ill effects from anesthesia. No history of sleep apnea. Not on any anticoagulation medication. Patient denies any cardiac or respiratory symptoms. Patient will go for blood work will check hepatitis panel, liver fibrosis panel and will do ultrasound of the liver with elastography. I will see patient after the procedure, sooner on as needed basis. Patient is agreeable to this plan and verbalizes understanding of instructions. She was given the opportunity to ask questions and all questions answered. Thank you for allowing me to participate in her care Orders: Orders Hepatitis A,B,C Profile Today R79.89 - Other specified abnormal findings of blood chemistry Liver Fibrosis Pnl Today R74.8 - Abnormal levels of other serum enzymes US abdomen beck w elastography Today R74.01 - Elevation of levels of liver transaminase levels Medications: New bisacodyl (Dulcolax (bisacodyl)) Start taking 2 tablet every night 7 days before the procedure and 1 day before procedure take 4 tablets at noon time followed by MiraLax prep 10 mg (2 x 5 mg) PO BEDTIME 16 tabs 0RF Z12.11 - Encounter for screening for malignant neoplasm of colon polyethylene glycol 3350 (Miralax) As directed by gastroenterology department at [facility] 238 grams PO ONCE 238 grams 0RF Z12.11 - Encounter for screening for malignant neoplasm of colon Coding Level of Care Code Est Pt Level 4 (89461) Diagnoses Gastroesophageal reflux disease, unspecified whether esophagitis present K21.9 Esophagitis presence: esophagitis presence not specified Fatty liver K76.0 Transaminitis R74.01 Irritable bowel syndrome without diarrhea K58.9 Irritable bowel syndrome type: without diarrhea Hemorrhoids, unspecified hemorrhoid type K64.9 Hemorrhoid type: unspecified Screen for colon cancer Z12.11 Tubular adenoma of colon D12.6 Time Spent (min) 35 Comment 20 minutes spent with patient and additional 15 minutes spent reviewing her records
[2024-02-19 12:06] VITALS: BP 112/74; PULSE 69; BMI 34.4
== END 2024-02-19 12:27 | disposition home or self-care (01) ==
PROVIDERS: PCP Internal Medicine; Visit Provider Nurse Practitioner Family
DX: K21.9 Gastro-esophageal reflux disease without esophagitis (principal); K76.0 Fatty (change of) liver, not elsewhere classified; R74.01 Elevation of levels of liver transaminase levels; K58.9 Irritable bowel syndrome, unspecified; K64.9 Unspecified hemorrhoids; Z12.11 Encounter for screening for malignant neoplasm of colon; D12.6 Benign neoplasm of colon, unspecified
CPT/HCPCS: 99214

== ENCOUNTER 2024-02-19 11:53 | Outpatient (REF) | payer MEDICARE, MEDICAID, SELFPAY ==
[2024-02-22 04:42] LABS: HBS Num1 0.42 mIU/mL (0-7.99); HBc Num1 0.06 S/CO (0.00-0.79); HBsAGNum1 0.41 S/CO (0.00-0.99); Hepatitis A Antibody IgM 0.16 Index (0-0.79); Hepatitis B Core Antibody Nonreactive (Nonreactive); Hepatitis B Surface Antigen Negative (Negative); ~HepC Num1 0.11 S/CO (0.00-0.79); ~Hepatitis A Antibody IgM Nonreactive (Nonreactive); ~Hepatitis B Surface Antibody NONREACTIVE (Nonreactive); ~Hepatitis C Antibody Nonreactive (Nonreactive)
[2024-02-26 18:18] LABS: FIB-ALT 40 U/L (6-29); FIB-Alpha-2-Macroglobulin 157 mg/dL (106-279); FIB-Apolipoprotein A1 158 mg/dL (101-198); FIB-GGT 42 U/L (3-70); FIB-Haptoglobin 157 mg/dL (43-212); FIB-Total Bilirubin 0.4 mg/dL (0.2-1.2); Liver Fibrosis Score 0.11; Liver Fibrosis Stage F0; Nec Inflam Act Grade A0-A1; Nec Inflam Act Score 0.17
== END 2024-02-19 11:54 | disposition home or self-care (01) ==
LOC: HO.LAB 11:53
PROVIDERS: PCP Internal Medicine; Visit Provider Nurse Practitioner Family
DX: K76.0 Fatty (change of) liver, not elsewhere classified (principal); R74.01 Elevation of levels of liver transaminase levels; K21.9 Gastro-esophageal reflux disease without esophagitis; K58.9 Irritable bowel syndrome, unspecified; K64.9 Unspecified hemorrhoids; D12.6 Benign neoplasm of colon, unspecified; Z90.49 Acquired absence of other specified parts of digestive tract
CPT/HCPCS: 36415; 81596; 86704; 86706; 86709; 86803; 87340; 99212

== ENCOUNTER 2024-02-22 13:53 | Outpatient (AMB) | payer MEDICARE, MEDICAID, SELFPAY ==
[2024-02-22 14:17] VITALS: BP 102/70; PULSE 66; O2SAT 96; BMI 34.9
--- NOTE | 2024-02-22 14:17 | A.OFFVIS_ITS ---
Intake Vital Signs 02/22/24 14:17 Height 5 ft 3 in Weight 197 lb 5.019 oz BMI 34.9 BP 102/70 Blood Pressure Location Lt brachial Position Sitting Pulse 66 Pulse Source Pulse Oximeter Pulse Oximetry (%) 96 Oxygen Delivery Method Room Air Intake Visit Reasons: Asthma Intake Note: pt is here for follow up and states doing well, Assisted Living Associate Required: No Allergies paroxetine [From PAXIL] Allergy (Severe, Verified 02/22/24 14:37) BAD REACTION - HALLUCINATING varenicline [From CHANTIX] Allergy (Severe, Verified 02/22/24 14:37) BAD REACTION - HALLUCINATING, redness and itching Medication List - Last Reconciled 02/22/24 by Samuel Montejo MD albuterol sulfate 90 mcg/actuation 2 puffs inhalation Q6H PRN bisacodyl (Dulcolax (bisacodyl)) 10 mg (2 x 5 mg) PO BEDTIME escitalopram oxalate 10 mg PO DAILY levothyroxine 88 mcg PO QAM 90 days montelukast 10 mg PO DAILY 90 days omeprazole 20 mg PO DAILY oxybutynin chloride ER 10 mg PO DAILY 90 days polyethylene glycol 3350 (Miralax) 238 grams PO ONCE Do you need a note to return to daycare/school/sports/work: No HPI Asthma HPI Details 58 YEARS OLD FEMALE IS HERE FOR FOLLOW-U P FOR HER BRONCHIAL ASTHMA AND SLEEP APNEA. SHE HAS BEEN USING CPAP REGULARLY EXCEPT FOR OCCASIONAL NIGHTS WHEN SHE HAS SOME NASAL CONGESTION. SLEEPS WELL. AT LEAST FOR 7-8 HOURS PER DAY. BREATHING HAS BEEN VERY GOOD AND SHE HARDLY NEEDS TO USE THE RESCUE INHALER. SHE CONTINUES TO TAKE MONTELUKAST 10 MG DAILY STILL SMOKING HAS CUT DOWN TO 7 CIGARETTES A DAY. [facility] Medical History Transaminitis Tubular adenoma Diverticulosis GERD (gastroesophageal reflux disease) Anxiety and depression Asthma History of panic attacks TIARRA on CPAP Fatty liver IBS (irritable bowel syndrome) Restrictive lung disease Allergic rhinitis Hypothyroidism Overactive bladder Surgical History History of surgery on arm Hx of colonoscopy H/O esophagogastroduodenoscopy History of tubal ligation Hx of cholecystectomy History of elbow surgery Family History Mother Brain aneurysm Maternal Aunt Lung cancer Maternal Uncle Cancer Father Cancer of prostate Colon cancer Other Mental health disorder Social History Housing: Apartment Are you a primary healthcare administrator to a significant other at home: No Alcohol intake: never Patient Tobacco Use Status: Former Tobacco user Tobacco use type: Cigarette Cigarettes Per Day: 7 Years Smoked: 40 e-Cigarette/Vaping Use: Never Used service: No Current occupational status: employed 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 Cognitive needs: No Hearing needs: No Vision needs: Yes Female Reproductive History Menstrual Age of Menarche: 16 Review of Systems Const All systems reviewed & are unremarkable except as noted in HPI and below Eyes Reports no additional complaints ENT Reports nasal congestion (OFF AND ON, WORSE AT THE TIME OF CHANGING WEATHER SAYS) Card Reports no additional complaints Resp Reports as per HPI GI Reports no additional complaints Reports urinary incontinence (OVERACTIVE BLADDER) Musc Reports no additional complaints Skin/Breast Reports system reviewed and no additional complaints, except as documented Neuro Reports no additional complaints Psych Reports depression (BEING TREATED WITH MED) Physical Exam Vital Signs: Last Vital Signs Pulse 66 02/22/24 14:17 BP 102/70 02/22/24 14:17 Pulse Ox 96 02/22/24 14:17 Oxygen Delivery Method Room Air 02/22/24 14:17 BMI result Body Mass Index 34.9 Const General: comfortable, no acute distress, alert and awake Orientation/consciousness: patient oriented x3 HEENT Head: Yes normal to inspection General nose exam: No nasal polyps present, No nasal discharge present and Other nasal findings present (Mild nasal congestion) Face and sinus: Yes sinuses nontender Mouth: oropharynx normal Throat: Yes posterior oropharynx normal Eyes General: appearance normal, both eyes and all related structures Neck Neck: Yes normal visual inspection, Yes no lymphadenopathy, Yes trachea midline and Yes no JVD Thyroid: Thyroid normal Chest Chest palpation & inspection: normal inspection of the chest, normal palpation of entire chest wall and no tenderness Resp Other: Percussion note is resonant, she has good breath sounds on both sides, no wheezes rhonchi or crepitations are heard. Cardio Palpation: normal PMI Rate: regular rate Rhythm: regular rhythm Heart sounds: no gallops and no murmurs GI Palpation (GI): Soft to palpation, nontender, No hepatosplenomegaly present and no masses Auscultation: normal bowel sounds Back/Spine/Pelvis Thoracic/Lumbar Spine: thoracic and lumbar spine normal to inspection Skin General skin exam: no rashes or lesions noted Neuro General: patient oriented x3 and no focal motor deficits Cranial nerves: Yes CN's II-XII intact bilaterally Extrem General: Yes normal to inspection, Yes no clubbing, cyanosis or edema and Yes no calf tenderness Psych Appearance: grossly normal and well kempt Speech and movement: Normal speech and movement present Results Reviewed Results Reviewed: COMPLIANCE REPORT FOR THE LAST 30 NIGHTS IS REVIEWED SHE HAS USED 30/30 NIGHTS 100%, AVERAGE USE PER NIGHT 10 HOURS 2 MINUTES. PRESSURE USED 11-13 CM. THERE IS MILD AIR LEAK. RESIDUAL AHI ONLY 0.7 Assessment & Plan Assessment & Plan (1) Obesity: Comment: SHE IS MODERATELY OBESE, THIS CAUSES THE MILD RESTRICTIVE LUNG DISEASE, WELL SLEEP APNEA. Code(s): E66.9 - Obesity, unspecified Plan: ENCOURAGED TO WATCH DIET AND WALK DAILY TO LOOSE WEIGHT (2) Asthma, mild: Comment: BRONCHIAL ASTHMA, MILD INTERMITTENT, CONTROLLED AND STABLE AT THIS TIME. Code(s): J45.909 - Unspecified asthma, uncomplicated Plan: TX : MONTELUKAST 10 MG DAILY ALBUTEROL HFA 2 PUFFS Q 4-6 HOURS P.R.N. WHEN OUTDOORS . AND AT HOME SHE CAN USE THE ALBUTEROL SOLUTION IN NEBULIZER Q 4-6 HOURS P.R.N.. (3) Sleep apnea with use of continuous positive airway pressure (CPAP): Comment: SHE DOES HAVE SLEEP APNEA FOR QUITE SOME TIME. SHE HAS BEEN USING THE CPAP MORE REGULARLY, AND SLEEPS WELL AT LEAST FOR 6 HOURS PER NIGHT. F U Q 6 MONTHS Code(s): G47.30 - Sleep apnea, unspecified Plan: COMMENDED FOR GOOD COMPLIANCE. AGAIN STRESSED THAT SHE SHOULD CONTINUE TO USE THE CPAP EVERY NIGHT. USE WARM HUMIDIFICATION, REGULARLY. (4) Restrictive lung disease: Comment: HAS MILD RESTRICTIVE DISORDER WHICH IS RELATED TO HER BEING OVERWEIGHT. Code(s): J98.4 - Other disorders of lung Plan: SHOULD TRY TO LOSE ABOUT 10 LB OF WEIGHT, ALSO DO DEEP BREATHING EXERCISES USE VENTOLIN HFA 2 PUFFS Q 4-6 HOURS ONLY P.R.N. AND NOT ALL THE TIMES. (5) Allergic rhinitis: Comment: She has chronic, allergic rhinitis, around the year. Code(s): J30.9 - Allergic rhinitis, unspecified Plan: CONTINUE TO USE Montelukast 10 mg a day and loratadine 10 mg once a day p.r.n. Coding Level of Care Code Est Pt Level 3 (90027) Diagnoses Obesity E66.9 Asthma, mild J45.909 Sleep apnea with use of continuous positive airway pressure (CPAP) G47.30 Restrictive lung disease J98.4 Allergic rhinitis J30.9
== END 2024-02-22 14:47 | disposition home or self-care (01) ==
PROVIDERS: PCP Internal Medicine; Visit Provider Internal Medicine
DX: E66.9 Obesity, unspecified (principal); J45.909 Unspecified asthma, uncomplicated; G47.30 Sleep apnea, unspecified; J98.4 Other disorders of lung; J30.9 Allergic rhinitis, unspecified
CPT/HCPCS: 99213

== ENCOUNTER → 2024-02-22 13:53 | Outpatient (BNVA) | payer MEDICARE, MEDICAID, SELFPAY | PROVIDERS: PCP Internal Medicine; Visit Provider Internal Medicine | DX: J45.909 Unspecified asthma, uncomplicated (principal); J98.4 Other disorders of lung; E66.9 Obesity, unspecified | CPT/HCPCS: 99212 ==

== ENCOUNTER 2024-03-17 10:05 | Outpatient (REF) | payer MEDICARE, MEDICAID, SELFPAY ==
--- NOTE | ~2024-03-17 | US_ITS ---
EXAMINATION: US ABDOMEN LIMITED WITH LIVER ELASTOGRAPHY CLINICAL INFORMATION: Elevated liver transaminase levels. COMPARISON: Abdomen ultrasound from 01/13/2023. TECHNIQUE: Real-time imaging of the abdominal viscera. Noninvasive ultrasound liver fibrosis assessment is performed using Yordan ElastPQ point quantification shear wave elastography (2D-SWE) with a C5-2 MHz transducer. Multiple elastography samples are obtained. FINDINGS: PANCREAS: Normal. LIVER: The liver is diffusely hyperechoic. No evidence of focal hepatic lesion. The hepatic contour is normal. No cirrhotic morphology. The right lobe measures 20 cm in length. The left lobe measures 13.7 cm in length. Portal flow is normal. Shear wave liver elastography median stiffness is 1.58 m/s (reference: normal median stiffness is 1.3 m/s or less). IQR/median stiffness to assess sampling precision is 0.11 (reference: good quality data set is IQR/median stiffness of 0.15 or less). GALLBLADDER: Status post cholecystectomy. COMMON BILE DUCT: Normal in caliber measuring 0.5 cm in diameter. RIGHT KIDNEY: Normal. No hydronephrosis. No renal calculi or focal parenchymal lesions. The kidney measures 10 cm in maximum dimension. FREE FLUID: None. US/US abdomen beck w elastography IMPRESSION: Liver is diffusely hyperechoic, consistent with steatosis, and there is no evidence of hepatic mass. Shear wave liver elastography reveals a median stiffness of 1.58 m/s. In the absence of other known clinical signs, this rules out compensated advanced chronic liver disease. REFERENCE: Society of Radiologists in Ultrasound Liver Stiffness Thresholds (2020): LIVER STIFFNESS THRESHOLDS: *Liver Stiffness equal or less than 1.3 m/s: High probability of being normal. *Liver Stiffness less than 1.7 m/s: In the absence of other known clinical signs, rules out compensated advanced chronic liver disease. *Liver Stiffness 1.7-2.1 m/s: Suggestive of compensated advanced chronic liver disease but need further test for confirmation. *Liver Stiffness over 2.1 m/s: Rules in compensated advanced chronic liver disease. *Liver Stiffness over 2.4 m/s: Suggestive of clinically significant portal hypertension. QUALITY OF DATA SET: *IQR/Median value equal or less than 0.15 implies a quality data set. *IQR/Median value over 0.15 implies a poor quality data set. OTHER CONSIDERATIONS: The stage of liver fibrosis may be overestimated in the setting of acute hepatitis, liver inflammation, elevated liver function tests, hepatic vascular congestion, obstructive cholestasis, non-fasting state, and infiltrative diseases such as amyloidosis and lymphoma. In some patients with NAFLD, the liver stiffness thresholds for compensated advanced chronic liver disease may be lower. In causes other than viral hepatitis and NAFLD, liver stiffness thresholds are not well established.
== END 2024-03-17 10:06 | disposition home or self-care (01) ==
LOC: HO.US 10:05
PROVIDERS: PCP Internal Medicine; Visit Provider Nurse Practitioner Family
DX: R74.01 Elevation of levels of liver transaminase levels (principal)
CPT/HCPCS: 76705; 76981

== ENCOUNTER 2024-03-24 10:43 | Outpatient (REF) | payer MEDICARE, MEDICAID, SELFPAY ==
[2024-03-27 08:33] LABS: TS Negative Control Passed; TS Panel A 0; TS Panel B 1; TS Positive Control Passed; TSpotTB Negative (Negative)
== END 2024-03-24 10:44 | disposition home or self-care (01) ==
LOC: HO.HMGCLDS 10:43
PROVIDERS: PCP Internal Medicine; Visit Provider Internal Medicine
DX: Z11.1 Encounter for screening for respiratory tuberculosis (principal)
CPT/HCPCS: 36415; 86481

== ENCOUNTER 2024-05-17 13:01 | Outpatient (AMB) | payer MEDICARE, MEDICAID, SELFPAY ==
--- NOTE | 2024-05-17 13:02 | MHC.PC.OV ---
Vital Signs 05/17/24 13:04 Height 5 ft 3 in Weight 200 lb BMI 35.4 BP 118/76 Blood Pressure Location Rt brachial Position Sitting Pulse 60 Pulse Source Pulse Oximeter Pulse Oximetry (%) 98 Oxygen Delivery Method Room Air Intake Visit Reasons: Nose yoo When breathing Allergies paroxetine [From PAXIL] Allergy (Severe, Verified 05/17/24 13:04) BAD REACTION - HALLUCINATING varenicline [From CHANTIX] Allergy (Severe, Verified 05/17/24 13:04) BAD REACTION - HALLUCINATING, redness and itching Medication List - Last Reconciled 05/17/24 by David Diaz MD albuterol sulfate 90 mcg/actuation 2 puffs inhalation Q6H PRN escitalopram oxalate 10 mg PO DAILY levothyroxine 88 mcg PO QAM 90 days montelukast 10 mg PO DAILY 90 days omeprazole 20 mg PO DAILY oxybutynin chloride ER 10 mg PO DAILY 90 days Tobacco use date assessed: 02/17/24 Dental Screening Dental Screen Date: 02/17/24 HPI Nose yoo When breathing HPI Details Patient is a 58-year-old female came in for her regular follow-up appointment and for an acute problem Patient says that she has been having severe sinus discomfort bilateral for past few weeks which is getting worse She also now feels burning sensation inside nose with nasal congestion She is having sinus headaches almost every day I am ordering CT scan of sinuses further evaluate the problem Meanwhile patient is to start with Flonase nasal spray at night Depression is stable with ecitalopram, it is through PCP office Patient takes Singulair and loratadine for allergies Bladder disorder: Incontinence stable with oxybutynin. GERD is stable with omeprazole patient is due for labs Hypothyroidism: Continue levothyroxine 88 mcg Albuterol inhaler as needed. Follow-up 3 months [facility] Medical History Transaminitis Tubular adenoma Diverticulosis GERD (gastroesophageal reflux disease) Anxiety and depression Asthma History of panic attacks TIARRA on CPAP Fatty liver IBS (irritable bowel syndrome) Restrictive lung disease Allergic rhinitis Hypothyroidism Overactive bladder Surgical History History of surgery on arm Hx of colonoscopy H/O esophagogastroduodenoscopy History of tubal ligation Hx of cholecystectomy History of elbow surgery Family History Mother Brain aneurysm Maternal Aunt Lung cancer Maternal Uncle Cancer Father Cancer of prostate Colon cancer Other Mental health disorder Social History Housing: Apartment Are you a primary foster care social worker to a significant other at home: No Alcohol intake: never Patient Tobacco Use Status: Former Tobacco user Tobacco use type: Cigarette Cigarettes Per Day: 7 Years Smoked: 40 e-Cigarette/Vaping Use: Never Used service: No Current occupational status: employed 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 Miguel Reyes, Ashly Wong, Darvin Brownlee and colleagues, with an educational darlin from [employer]. Review of Systems Const Denies chills and Denies fever(s) ENT Denies epistaxis Card Denies chest pain Resp Denies chest congestion, Denies cough and Denies hemoptysis GI Denies diarrhea and Denies nausea Skin/Breast Denies rash Neuro Reports no additional complaints Psych Reports no additional complaints Endo Reports no additional complaints Physical exam (Primary Care) Vital Signs: Last Vital Signs Pulse 60 05/17/24 13:04 BP 118/76 05/17/24 13:04 Pulse Ox 98 05/17/24 13:04 Oxygen Delivery Method Room Air 05/17/24 13:04 BMI result Body Mass Index 35.4 Tobacco/Smoking Status: Tobacco use Status Tobacco use date assessed 02/17/24 05/17/24 13:02 Patient Tobacco Use Status Former Tobacco user 05/17/24 13:02 Tobacco use type Cigarette 05/17/24 13:02 e-Cigarette/Vaping Use Never Used 05/17/24 13:02 Thrive Assessment: Date of Thrive Assessment Date Thrive assessed 07/17/23 05/17/24 13:02 Const General: cooperative, comfortable and no acute distress Orientation/consciousness: patient oriented x3 HENMT Head: Yes normocephalic Head images: 1. Pain with pressure 2. Pain with pressure Eyes General: appearance normal, both eyes and all related structures Neck Neck: Yes supple Resp Effort & Inspection: normal respiratory effort, no cough and no stridor Cardio Rhythm: regular rhythm Heart sounds: S1 normal heart sound present and S2 normal heart sound present Skin General skin exam: turgor normal Neuro General: patient oriented x3, tone normal and moves all extremities Extrem Right lower extremity: no edema Left lower extremity: no edema Assessment and Plan Assessment & Plan (1) Sinus headache: Code(s): R51.9 - Headache, unspecified (2) Other specified hypothyroidism: Code(s): E03.8 - Other specified hypothyroidism (3) Anxiety, generalized: Code(s): F41.1 - Generalized anxiety disorder (4) Major depression, recurrent: Code(s): F33.9 - Major depressive disorder, recurrent, unspecified Qualifiers: Active/Remission status: in partial remission Qualified Code(s): F33.41 - Major depressive disorder, recurrent, in partial remission (5) Allergic rhinitis: Code(s): J30.9 - Allergic rhinitis, unspecified Qualifiers: Allergic rhinitis trigger: unspecified Allergic rhinitis seasonality: unspecified Qualified Code(s): J30.9 - Allergic rhinitis, unspecified (6) LFT elevation: Code(s): R79.89 - Other specified abnormal findings of blood chemistry (7) Bladder disorder: Code(s): N32.9 - Bladder disorder, unspecified Plan Patient is a 58-year-old female came in for her regular follow-up appointment and for an acute problem Patient says that she has been having severe sinus discomfort bilateral for past few weeks which is getting worse She also now feels burning sensation inside nose with nasal congestion She is having sinus headaches almost every day I am ordering CT scan of sinuses further evaluate the problem Meanwhile patient is to start with Flonase nasal spray at night Depression is stable with ecitalopram, it is through PCP office Patient takes Singulair and loratadine for allergies Bladder disorder: Incontinence stable with oxybutynin. GERD is stable with omeprazole patient is due for labs Hypothyroidism: Continue levothyroxine 88 mcg Albuterol inhaler as needed. Follow-up 3 months Orders: Orders CT sinus wo IV con Today R51.9 - Headache, unspecified Medications: New fluticasone propionate 50 mcg/actuation (Children's Flonase Allergy Relief) administer into each nostril 1 spray intranasal DAILY 16 grams 0RF Coding Level of Care Code Est Pt Level 4 (81504) Complex EM visit Add On G2211 Diagnoses Sinus headache R51.9 Other specified hypothyroidism E03.8 Anxiety, generalized F41.1 Recurrent major depressive disorder, in partial remission F33.41 Active/Remission status: in partial remission Allergic rhinitis, unspecified seasonality, unspecified trigger J30.9 Allergic rhinitis trigger: unspecified Allergic rhinitis seasonality: unspecified LFT elevation R79.89 Bladder disorder N32.9
[2024-05-17 13:04] VITALS: BP 118/76; PULSE 60; O2SAT 98; BMI 35.4
== END 2024-05-17 13:21 | disposition home or self-care (01) ==
PROVIDERS: PCP Internal Medicine; Visit Provider Internal Medicine
DX: R51.9 Headache, unspecified (principal); E03.8 Other specified hypothyroidism; F41.1 Generalized anxiety disorder; F33.41 Major depressive disorder, recurrent, in partial remission; J30.9 Allergic rhinitis, unspecified; R79.89 Other specified abnormal findings of blood chemistry; N32.9 Bladder disorder, unspecified
CPT/HCPCS: 99214; G2211

== ENCOUNTER 2024-06-08 11:43 | Outpatient (AMB) | payer MEDICARE, MEDICAID, SELFPAY ==
--- NOTE | 2024-06-08 11:50 | A.OFFVIS_ITS ---
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: No Accompanied by: Self / Same As Patient Allergies paroxetine [From PAXIL] Allergy (Severe, Verified 06/08/24 11:49) BAD REACTION - HALLUCINATING varenicline [From CHANTIX] Allergy (Severe, Verified 06/08/24 11:49) BAD REACTION - HALLUCINATING, redness and itching PFSH Medical History Transaminitis Tubular adenoma Diverticulosis GERD (gastroesophageal reflux disease) Anxiety and depression Asthma History of panic attacks TIARRA on CPAP Fatty liver IBS (irritable bowel syndrome) Restrictive lung disease Allergic rhinitis Hypothyroidism Overactive bladder Surgical History History of surgery on arm Hx of colonoscopy H/O esophagogastroduodenoscopy History of tubal ligation Hx of cholecystectomy History of elbow surgery Family History Mother Brain aneurysm Maternal Aunt Lung cancer Maternal Uncle Cancer Father Cancer of prostate Colon cancer Other Mental health disorder Social History Housing: Apartment Are you a primary day care worker to a significant other at home: No Alcohol intake: never Patient Tobacco Use Status: Former Tobacco user Tobacco use type: Cigarette Cigarettes Per Day: 7 Years Smoked: 40 e-Cigarette/Vaping Use: Never Used service: No Current occupational status: employed 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
--- NOTE | 2024-06-08 11:51 | A.OFFVIS_ITS ---
Vital Signs 06/08/24 11:53 Height 5 ft 3 in Weight 200 lb BMI 35.4 BP 107/64 Blood Pressure Location Lt brachial Position Sitting Pulse 63 Intake Visit Reasons: May follow up Intake Note: Follow up for fatty liver Patient cc: tiredness, diarrhea on and off with abdominal pain. 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 Tubular adenoma on last colonoscopy, however patient had suboptimal prep and will need to repeat colonoscopy. We will try Dulcolax tablets for 1 week before procedure every evening and then 4 tablets at noon day before procedure. Long discussion with patient avoiding food that day before procedure clear liquid diet only. Discussed with patient also what to expect before during and after procedure. Patient denies any ill effects from anesthesia. No history of sleep apnea. Not on any anticoagulation medication. Patient denies any cardiac or respiratory symptoms. Patient will go for blood work will check hepatitis panel, liver fibrosis panel and will do ultrasound of the liver with elastography. I will see patient after the procedure, sooner on as needed basis. Patient is agreeable to this plan and verbalizes understanding of instructions. She was given the opportunity to ask questions and all questions answered. ? Thank you for allowing me to participate in her care Orders Orders Hepatitis A,B,C Profile Today R79.89 Liver Fibrosis Pnl Today R74.8 US abdomen beck w elastography Today R74.01 Medications New bisacodyl (Dulcolax (bisacodyl)) Start taking 2 tablet every night 7 days before the procedure and 1 day before procedure take 4 tablets at noon time followed by MiraLax prep 10 mg (2 x 5 mg) PO BEDTIME 16 tabs 0RF Z12.11 polyethylene glycol 3350 (Miralax) As directed by gastroenterology department at [facility] 238 grams PO ONCE 238 grams 0RF Z12.11 TODAY'S VISIT Patient is here today for follow-up and to go over prep for colonoscopy. Colonoscopy scheduled for July 01. Patient had suboptimal prep last colonoscopy. Patient states that she ate day before procedure. Patient admits to having tendency to binge eat and she told me forgot and did not follow clear liquid diet. Patient denies any issues with anesthesia in the past. History of sleep apnea, using CPAP. Not on any anticoagulation medication. Denies any dyspepsia, dysphagia or odynophagia. Patient reports that she has been trying to avoid eating late at night. Moving her bowels better now. Last visit we order repeat of liver enzymes, liver fibrosis panel as well as ultrasound of the liver with elastography. Improved liver enzymes, fibrosis stage F0, liver elastography shows hepatic steatosis. Shear wave liver elastography shows a med stiffness of 1. Five 8 m/s. Rules out compensated advanced chronic liver disease [facility] Medical History Transaminitis Tubular adenoma Diverticulosis GERD (gastroesophageal reflux disease) Anxiety and depression Asthma History of panic attacks TIARRA on CPAP Fatty liver IBS (irritable bowel syndrome) Restrictive lung disease Allergic rhinitis Hypothyroidism Overactive bladder Surgical History History of surgery on arm Hx of colonoscopy H/O esophagogastroduodenoscopy History of tubal ligation Hx of cholecystectomy History of elbow surgery Family History Mother Brain aneurysm Maternal Aunt Lung cancer Maternal Uncle Cancer Father Cancer of prostate Colon cancer Other Mental health disorder Social History Housing: Apartment Are you a primary director long term care to a significant other at home: No Alcohol intake: never Patient Tobacco Use Status: Former Tobacco user Tobacco use type: Cigarette Cigarettes Per Day: 7 Years Smoked: 40 e-Cigarette/Vaping Use: Never Used service: No Current occupational status: employed 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 Cognitive needs: No Hearing needs: No Vision needs: Yes Female Reproductive History Menstrual Age of Menarche: 16 Review of Systems Const Denies weight gain and Denies weight loss ENT Reports no additional complaints, Denies dysphagia and Denies odynophagia Card Reports no additional complaints Resp Reports no additional complaints GI Denies abdominal pain, Denies belching, Denies melena, Denies bloating, Denies change in bowel habits, Denies dysphagia, Denies excessive flatus, Denies dyspepsia, Denies heartburn, Denies diarrhea, Denies loose stools, Denies nausea, Denies odynophagia and Denies vomiting Musc Reports no additional complaints Neuro Reports no additional complaints Psych Reports no additional complaints Endo Reports no additional complaints Physical Exam Vital Signs: Last Vital Signs Pulse 63 06/08/24 11:53 BP 107/64 06/08/24 11:53 BMI result Body Mass Index 35.4 Const General: healthy appearing and no acute distress Nutritional Appearance: obese Orientation/consciousness: patient oriented x3 Resp Effort & Inspection: normal respiratory effort, able to speak in complete sentences, no tracheal deviation and symmetric chest movement Auscultation: clear to auscultation bilaterally Cardio Rate: regular rate GI Inspection: Yes normal to inspection, No distended and Yes obesity Palpation (GI): Soft to palpation, not firm, nontender and No hepatosplenomegaly present Auscultation: normal bowel sounds General: Yes no CVA tenderness Back/Spine/Pelvis Back: no CVA tenderness Skin General skin exam: elasticity normal, turgor normal and dry skin Neuro General: patient oriented x3 Psych Appearance: grossly normal Mental Status: mental status grossly normal Results Reviewed Results Reviewed: Laboratory Tests 02/17/24 02/19/24 14:11 12:45 AST 28 ALT 45 H Alkaline Phosphatase 71 Liver Fibrosis Stage F0 Hepatitis A IgM Ab Nonreactive Hep Bs Antigen Negative Hep Bs Antibody NONREACTIVE Hep B Core Total Ab Nonreactive Hepatitis C Ab (EIA) Nonreactive ABDOMINAL ULTRASOUND WITH ELASTOGRAPHY FINDINGS: FINDINGS: PANCREAS: Normal. LIVER: The liver is diffusely hyperechoic. No evidence of focal hepatic lesion. The hepatic contour is normal. No cirrhotic morphology. The right lobe measures 20 cm in length. The left lobe measures 13.7 cm in length. Portal flow is normal. Shear wave liver elastography median stiffness is 1.58 m/s (reference: normal median stiffness is 1.3 m/s or less). IQR/median stiffness to assess sampling precision is 0.11 (reference: good quality data set is IQR/median stiffness of 0.15 or less). GALLBLADDER: Status post cholecystectomy. COMMON BILE DUCT: Normal in caliber measuring 0.5 cm in diameter. RIGHT KIDNEY: Normal. No hydronephrosis. No renal calculi or focal parenchymal lesions. The kidney measures 10 cm in maximum dimension. FREE FLUID: None. US/US abdomen beck w elastography IMPRESSION: Liver is diffusely hyperechoic, consistent with steatosis, and there is no evidence of hepatic mass. Shear wave liver elastography reveals a median stiffness of 1.58 m/s. In the absence of other known clinical signs, this rules out compensated advanced chronic liver disease. Assessment & Plan Assessment & Plan (1) GERD (gastroesophageal reflux disease): Code(s): K21.9 - Gastro-esophageal reflux disease without esophagitis Category: Medical Qualifiers: Esophagitis presence: esophagitis presence not specified Qualified Code(s): K21.9 - Gastro-esophageal reflux disease without esophagitis (2) Fatty liver: Code(s): K76.0 - Fatty (change of) liver, not elsewhere classified Category: Medical (3) Transaminitis: Code(s): R74.01 - Elevation of levels of liver transaminase levels Category: Medical (4) IBS (irritable bowel syndrome): Code(s): K58.9 - Irritable bowel syndrome without diarrhea Qualifiers: Irritable bowel syndrome type: without diarrhea Qualified Code(s): K58.9 - Irritable bowel syndrome without diarrhea (5) Hemorrhoid: Code(s): K64.9 - Unspecified hemorrhoids Qualifiers: Hemorrhoid type: unspecified Qualified Code(s): K64.9 - Unspecified hemorrhoids (6) Screen for colon cancer: Code(s): Z12.11 - Encounter for screening for malignant neoplasm of colon (7) Tubular adenoma of colon: Code(s): D12.6 - Benign neoplasm of colon, unspecified Plan Discussed with patient her lab results. Encouraged her to continue lose weight and continue avoiding food high in fat. More protein intake. Avoid carbs. Discussed with patient and stressed the importance of good bowel prep and clear liquid diet day before procedure. Patient was encouraged to eat Jell-O for b reakfast lunch and dinner to keep herself food from being hungry and bingeing on something that would cause her colonoscopy to be canceled. Continue omeprazole. I will see patient after the procedure, sooner on as needed basis. She is agreeable to this plan and verbalizes understanding of instructions. She was given the opportunity to ask questions and all questions answered. Thank you for allowing me to participate in her care Coding Level of Care Code Est Pt Level 3 (65973) Diagnoses Gastroesophageal reflux disease, unspecified whether esophagitis present K21.9 Esophagitis presence: esophagitis presence not specified Fatty liver K76.0 Transaminitis R74.01 Irritable bowel syndrome without diarrhea K58.9 Irritable bowel syndrome type: without diarrhea Hemorrhoids, unspecified hemorrhoid type K64.9 Hemorrhoid type: unspecified Screen for colon cancer Z12.11 Tubular adenoma of colon D12.6 Time Spent (min) 30 Comment 20 minutes spent with patient and additional 10 minutes spent reviewing her records
[2024-06-08 11:53] VITALS: BP 107/64; PULSE 63; BMI 35.4
== END 2024-06-08 12:50 | disposition home or self-care (01) ==
PROVIDERS: PCP Internal Medicine; Visit Provider Nurse Practitioner Family
DX: K21.9 Gastro-esophageal reflux disease without esophagitis (principal); K76.0 Fatty (change of) liver, not elsewhere classified; R74.01 Elevation of levels of liver transaminase levels; K58.9 Irritable bowel syndrome, unspecified; K64.9 Unspecified hemorrhoids; Z12.11 Encounter for screening for malignant neoplasm of colon; D12.6 Benign neoplasm of colon, unspecified
CPT/HCPCS: 99213

== ENCOUNTER → 2024-06-08 11:43 | Outpatient (BNVA) | payer MEDICARE, MEDICAID, SELFPAY | PROVIDERS: PCP Internal Medicine; Visit Provider Nurse Practitioner Family | DX: K21.9 Gastro-esophageal reflux disease without esophagitis (principal); K76.0 Fatty (change of) liver, not elsewhere classified; R74.01 Elevation of levels of liver transaminase levels; K58.9 Irritable bowel syndrome, unspecified; K64.9 Unspecified hemorrhoids; Z86.010 Personal history of colon polyps | CPT/HCPCS: 99212 ==

== ENCOUNTER 2024-06-23 13:47 | Outpatient (REF) | payer MEDICARE, MEDICAID, SELFPAY ==
--- NOTE | ~2024-06-23 | CT_ITS ---
EXAMINATION: CT SINUSES without contrast CLINICAL INFORMATION: Headache COMPARISON: None TECHNIQUE: Multidetector helical imaging was performed in the axial plane with generation of coronal and sagittal reformatted images. This CT examination was performed using dose optimization techniques as appropriate, variously including the following: *Automated exposure control *Adjustment of mA and/or kV according to patient size (this includes techniques or standardized protocols for targeted exams where dose is matched to indication/reason for exam; i.e. extremities or head) *Use of iterative reconstruction technique CONTRAST: Noncontrasted study. FINDINGS: MAXILLARY: Clear OSTIOMEATAL UNITS: Clear ETHMOIDAL AIR CELLS: Small soft tissue opacity in right ethmoidal air cell 0.6 x 1 cm, possibly mucosal thickening and/or small polyps. Rose image 29 series 6. Most of the ethmoidal air cells otherwise are clear. SPHENOIDAL AIR CELLS: Clear FRONTAL AIR CELLS AND DRAINAGES: Clear NASAL CAVITY: Nasal cavity is normal. Minimal S-shaped curvature of nasal septum, not significantly deviated. SURROUNDING SOFT TISSUE: There is soft tissue opacity in the right parotid 0.9 x 0.7 cm, possibly a intraparotid lymph node, versus parotid gland tumor this can be evaluated further with ultrasound.. FRONTAL SINUSES AND DRAINAGE PATHWAYS: Normal. MAXILLARY SINUSES AND DRAINAGE PATHWAYS: Normal. The infundibula are patent. ADDITIONAL RELEVANT FINDINGS: The TMJs articulate normally. The orbits and skull base soft tissues are unremarkable. The middle ear cavities and mastoid air cells are clear. Limited evaluation demonstrates no acute intracranial findings. CT/CT sinus wo IV con IMPRESSION: 1. Small soft tissue opacity in a right ethmoidal air cell, possibly mucosal thickening and/or small polyps. 2. The paranasal sinuses are otherwise clear. 3. Minimal S-shaped curvature of nasal septum, not significantly deviated. 4. There is soft tissue density in the right parotid gland 0.9 x 0.7 cm, possibly a intraparotid lymph node, versus carotid gland neoplasm, consider follow-up parotid ultrasound.
== END 2024-06-23 13:48 | disposition home or self-care (01) ==
LOC: HO.CT 13:47
PROVIDERS: PCP Internal Medicine; Visit Provider Internal Medicine
DX: R51.9 Headache, unspecified (principal)
CPT/HCPCS: 70486

== ENCOUNTER 2024-07-01 09:36 | Day surgery (SDC) | payer MEDICARE, MEDICAID, SELFPAY ==
--- NOTE | 2024-06-29 13:29 | P.CONAN_ITS ---
Documented by User: Elisa Gonzalez NP 06/29/24 13:34 HPI - Anesthesia Eval Consult details Narrative: 58yo F for Colonoscopy PMFSH Active Problems Active Problems: All Active Problems Sinus headache (Acute) Well woman exam (Acute) Encounter for general adult medical examination with abnormal findings (Acute) Female pelvic pain (Acute) Maxillary sinusitis, acute (Acute) Transaminitis (Acute) Tubular adenoma (Acute) Diverticulosis (Acute) Major depression, recurrent (Acute) Encounter for screening laboratory testing for COVID-19 virus (Acute) Acute sinusitis (Acute) Allergic rhinitis (Acute) Other specified hypothyroidism (Acute) Exposure to STD (Acute) Anxiety, generalized (Acute) Fatty liver (Acute) Itching of vulva (Acute) Nasal erythema (Acute) LFT elevation (Acute) Environmental allergies (Acute) Asthma, mild (Acute) Obesity (Acute) Bladder disorder (Acute) Dyspepsia (Acute) Sleep apnea with use of continuous positive airway pressure (CPAP) (Acute) Acute sinusitis (Acute) Difficulty swallowing (Acute) Disturbance of smell and taste (Acute) Abscess (Acute) Skin tag (Acute) Medicare annual wellness visit, initial (Acute) Upper respiratory tract infection (Acute) Obesity due to excess calories (Acute) Acute pharyngitis (Acute) Lipoma of neck (Acute) GERD (gastroesophageal reflux disease) (Acute) Medicare annual wellness visit, subsequent (Acute) URI with cough and congestion (Acute) Screen for sexually transmitted diseases (Acute) Health education/counseling (Acute) Rash (Acute) Dry skin (Acute) Restrictive lung disease (Acute) Allergic rhinitis (Acute) Overactive bladder (Acute) Past Medical History Medical History Transaminitis Tubular adenoma Diverticulosis GERD (gastroesophageal reflux disease) Anxiety and depression Asthma History of panic attacks TIARRA on CPAP Fatty liver IBS (irritable bowel syndrome) Restrictive lung disease Allergic rhinitis Hypothyroidism Overactive bladder Family History Family History Mother Brain aneurysm Maternal Aunt Lung cancer Maternal Uncle Cancer Father Cancer of prostate Colon cancer Other Mental health disorder Surgical History Surgical History History of surgery on arm Hx of colonoscopy H/O esophagogastroduodenoscopy History of tubal ligation Hx of cholecystectomy History of elbow surgery History of Problems with Anesthesia: No Social History Social History Housing: Apartment Are you a primary respiratory care specialist to a significant other at home: No Alcohol intake: never Patient Tobacco Use Status: Former Tobacco user Tobacco use type: Cigarette Cigarettes Per Day: 7 Years Smoked: 40 e-Cigarette/Vaping Use: Never Used Use of substances other than those prescribed or required for medical reasons: Yes Are you DNR?: No Advance Directives: No Advance Directives Information Provided: Yes service: No Current occupational status: employed 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 Cognitive needs: No Hearing needs: No Vision needs: Yes Meds Allergies Allergy/AdvReac Type Severity Reaction Status Date / Time paroxetine [From PAXIL] Allergy Severe BAD Verified 07/01/24 09:49 REACTION - HALLUCINATING varenicline [From CHANTIX] Allergy Severe BAD Verified 07/01/24 09:49 REACTION - HALLUCINATING, redness and itching Exam Pertinent Lab Results Pertinent Lab Results: Laboratory Tests 02/17/24 14:11 WBC 9.0 Hgb 13.9 Hct 42.4 Plt Count 252 Sodium 141 Potassium 3.8 Chloride 107 Carbon Dioxide 26 BUN 15 Creatinine 0.82 Assessment and Plan Assessment Anesthesia Assessment: Chart Reviewed Final Anesthetic Review History of Problems with Anesthesia: No Documented by User: Roberta Aj MD 07/01/24 10:35 [facility] Active Problems Active Problems: All Active Problems Sinus headache (Acute) Well woman exam (Acute) Encounter for general adult medical examination with abnormal findings (Acute) Female pelvic pain (Acute) Maxillary sinusitis, acute (Acute) Transaminitis (Acute) Tubular adenoma (Acute) Diverticulosis (Acute) Major depression, recurrent (Acute) Encounter for screening laboratory testing for COVID-19 virus (Acute) Acute sinusitis (Acute) Allergic rhinitis (Acute) Other specified hypothyroidism (Acute) Exposure to STD (Acute) Anxiety, generalized (Acute) Fatty liver (Acute) Itching of vulva (Acute) Nasal erythema (Acute) LFT elevation (Acute) Envir onmental allergies (Acute) Asthma, mild (Acute) Obesity (Acute) Bladder disorder (Acute) Dyspepsia (Acute) Sleep apnea with use of continuous positive airway pressure (CPAP) (Acute) Acute sinusitis (Acute) Difficulty swallowing (Acute) Disturbance of smell and taste (Acute) Abscess (Acute) Skin tag (Acute) Medicare annual wellness visit, initial (Acute) Upper respiratory tract infection (Acute) Obesity due to excess calories (Acute) Acute pharyngitis (Acute) Lipoma of neck (Acute) GERD (gastroesophageal reflux disease) (Acute) Medicare annual wellness visit, subsequent (Acute) URI with cough and congestion (Acute) Screen for sexually transmitted diseases (Acute) Health education/counseling (Acute) Rash (Acute) Dry skin (Acute) Restrictive lung disease (Acute) Allergic rhinitis (Acute) Overactive bladder (Acute) Past Medical History Medical History Transaminitis Tubular adenoma Diverticulosis GERD (gastroesophageal reflux disease) Anxiety and depression Asthma History of panic attacks TIARRA on CPAP Fatty liver IBS (irritable bowel syndrome) Restrictive lung disease Allergic rhinitis Hypothyroidism Overactive bladder Family History Family History Mother Brain aneurysm Maternal Aunt Lung cancer Maternal Uncle Cancer Father Cancer of prostate Colon cancer Other Mental health disorder Surgical History Surgical History History of surgery on arm Hx of colonoscopy H/O esophagogastroduodenoscopy History of tubal ligation Hx of cholecystectomy History of elbow surgery Social History Social History Housing: Apartment Are you a primary respiratory care specialist to a significant other at home: No Alcohol intake: never Patient Tobacco Use Status: Former Tobacco user Tobacco use type: Cigarette Cigarettes Per Day: 7 Years Smoked: 40 e-Cigarette/Vaping Use: Never Used Use of substances other than those prescribed or required for medical reasons: Yes Are you DNR?: No Advance Directives: No Advance Directives Information Provided: Yes service: No Current occupational status: employed 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 Cognitive needs: No Hearing needs: No Vision needs: Yes Meds Allergies Allergy/AdvReac Type Severity Reaction Status Date / Time paroxetine [From PAXIL] Allergy Severe BAD Verified 07/01/24 09:49 REACTION - HALLUCINATING varenicline [From CHANTIX] Allergy Severe BAD Verified 07/01/24 09:49 REACTION - HALLUCINATING, redness and itching Exam Airway Mallampati Class: II TM Dist: >3cm Neck ROM: Full Loose/Missing/Broken Teeth: No Heart: RRR Lungs: CTA Assessment and Plan Assessment Anesthesia Assessment: Anesthesia Plan Discussed Final Anesthetic Review NPO: Yes ASA Class: III Final Preanesthetic Review: Meds/Allgs Chart Reviewed, Consent Obtained/Reviewed and Anes Risks/Benef Reviewed Patient Risk: Intermediate Procedure Risk: Low Anesthetic Plan Anesthetic Plan: MAC: Disposition: Standard PACU
[2024-07-01 09:57] VITALS: BP 112/58; PULSE 76; RESP 18; TEMP 36.1; O2SAT 95; BMI 34.7
[2024-07-01] MEDS: Lactated Ringers 1,000 ML 100 ML IVCONT (10:18)
--- NOTE | 2024-07-01 10:27 | MHC.SHP ---
Pre-Procedural Eval Section A - 24 Hr Update-Section A only Date of Service: 07/01/24 The patient is an INPATIENT: No Changes since office visit: Yes Patient answered all questions; No Cold of Flu in the past 2 weeks, No New Medical Problems and No Changes in Medication The patient has been examined within 24 hours of the surgical procedure. The History & Physical has been completed within 30 days and I have reviewed it.: Yes Section B - Complete if H&P > 30 days Chief Complaint: Encounter for screening for malignant neoplasm of Allergies: Allergies Allergy/AdvReac Type Severity Reaction Status Date / Time paroxetine [From PAXIL] Allergy Severe BAD Verified 07/01/24 09:49 REACTION - HALLUCINATING varenicline [From CHANTIX] Allergy Severe BAD Verified 07/01/24 09:49 REACTION - HALLUCINATING, redness and itching Exam Surgical H&P Exam: Normal: Heart, Normal: Lungs, Normal: Extremities and Normal: Abdomen Plan Diagnosis/Plan: Unchanged I have reviewed the history and physical and performed a pertinent physical examination on my patient. No changes have occurred unless specified. Time Spent With Patient Time: Total time managing care of this patient today ____ minutes.
[2024-07-01 11:13] VITALS: BP 97/52; PULSE 58; RESP 18; TEMP 36.4; O2SAT 98
--- NOTE | 2024-07-01 11:13 | HO.OPN-COLON ---
Colonoscopy Operative Note Operative Note Date of Service: 07/01/24 Narrative: COLONOSCOPY TILL CECUM Pre-op diagnosis: Surveillance for colon polyps. Post-op diagnosis:? Diverticulosis, hemorrhoids Endoscopist:? Lurdes Garnica MD Anesthesia:?MAC Consent: Indications for the procedure and potential complications of bleeding, perforation, reaction to medications and missed diagnosis were discussed with the patient and informed consent was obtained. Instrument: Olympus PCF H 190 L variable stiffness pediatric colonoscope Monitoring: Vital signs and clinical assessment, intermittent blood pressure monitoring, continuous EKG monitoring, Pulse oximetry and Carbon Dioxide monitoring were done throughout the procedure. Please see anesthesia flowsheet. Colon withdrawl time was 16 minutes. Procedure: The patient was placed in the left lateral decubitis position and pre-procedure medications were administered. After a digital rectal examination of the ano-rectum, the video colonoscope was inserted into the rectum and advanced through the colon to the cecum. The colonoscope was slowly withdrawn in a retrograde panoramic fashion and the colon mucosa was carefully examined including a retroflexed view of the rectum. Findings and interventions are described below. Procedure Difficulty: without difficulty Findings: Terminal Ileum: Not evaluated Cecum: Normal Ascending Colon: Scattered moderate diverticulosis throughout the colon. Transverse Colon: Scattered moderate diverticulosis throughout the colon. Descending Colon: Scattered moderate diverticulosis throughout the colon. Sigmoid Colon: Moderate diverticulosis Rectum: Normal Ano-rectum: Small internal hemorrhoids Colon preparation: Excellent after some irrigation. [place] Bowel Preparation Scale Right colon; 3 Transverse colon: 3 Left colon; 3 (0 = Unprepared colon segment with mucosa not seen due to solid stool that cannot be cleared. 1 = Portion of mucosa of the colon segment seen, but other areas of the colon segment not well seen due to staining, residual stool and/or opaque liquid. 2 = Minor amount of residual staining, small fragments of stool and/or opaque liquid, but mucosa of colon segment seen well. 3 = Entire mucosa of colon segment seen well with no residual staining, small fragments of stool or opaque liquid) Impression and Post Procedure Diagnosis: Colonoscopy Findings: No polyps were detected Moderate diverticulosis seen in the entire colon Small hemorrhoids on retroflexed exam. Plan: Pt has a FU appointment on 07/15/24 with Akilah Lawton NP Repeat Colonoscopy in 5 years if polyps are adenomatous and due to a history of adenomatous colon polyps. Above findings were reviewed with the patient and relevant handouts were given and the discharge area.
[2024-07-01 11:28] VITALS: BP 112/69; PULSE 56; RESP 18; TEMP 36.4; O2SAT 97
== END 2024-07-01 11:47 | disposition home or self-care (01) ==
PROVIDERS: PCP Internal Medicine; Visit Provider Internal Medicine Gastroenterology
PROC: 0DJD8ZZ Inspection of Lower Intestinal Tract, Via Natural or Artificial Opening Endoscopic (ICD-10-PCS; CPT 45378; principal; 2024-07-01 11:10)
DX: Z12.11 Encounter for screening for malignant neoplasm of colon (principal); Z86.010 Personal history of colon polyps; K57.30 Diverticulosis of large intestine without perforation or abscess without bleeding; K64.8 Other hemorrhoids; K58.9 Irritable bowel syndrome, unspecified; K76.0 Fatty (change of) liver, not elsewhere classified; K21.9 Gastro-esophageal reflux disease without esophagitis; R74.01 Elevation of levels of liver transaminase levels; J45.909 Unspecified asthma, uncomplicated; G47.33 Obstructive sleep apnea (adult) (pediatric); Z99.89 Dependence on other enabling machines and devices; Z88.8 Allergy status to other drugs, medicaments and biological substances; Z87.891 Personal history of nicotine dependence
CPT/HCPCS: G0105; J2704

== ENCOUNTER → 2024-07-01 09:36 | Outpatient (BNV) | payer MEDICARE, MEDICAID, SELFPAY | PROVIDERS: PCP Internal Medicine; Visit Provider Internal Medicine Gastroenterology | DX: Z12.11 Encounter for screening for malignant neoplasm of colon (principal); Z86.010 Personal history of colon polyps; K57.90 Diverticulosis of intestine, part unspecified, without perforation or abscess without bleeding; K64.8 Other hemorrhoids | CPT/HCPCS: G0105 ==

== ENCOUNTER 2024-07-15 10:59 | Outpatient (AMB) | payer MEDICARE, MEDICAID, SELFPAY ==
[2024-07-15 11:04] VITALS: BP 122/76; PULSE 54; O2SAT 97; BMI 36.1
--- NOTE | 2024-07-15 11:04 | A.OFFVIS_ITS ---
Vital Signs 07/15/24 11:04 Height 5 ft 2 in Weight 197 lb 8.547 oz BMI 36.1 BP 122/76 Blood Pressure Location Lt brachial Position Sitting Pulse 54 Pulse Source Pulse Oximeter Pulse Oximetry (%) 97 Oxygen Delivery Method Room Air Intake Visit Reasons: s/p colon Intake Note: Michael presents in office today for a scheduled post op FUV. CC; Pt declines any new concerns or sx post op. Pt denies any complications as a result of the procedure. Pt is here to discuss their results. Tea Blender Required: No Allergies paroxetine [From PAXIL] Allergy (Severe, Verified 07/15/24 11:04) BAD REACTION - HALLUCINATING varenicline [From CHANTIX] Allergy (Severe, Verified 07/15/24 11:04) BAD REACTION - HALLUCINATING, redness and itching HPI HPI s/p colon: Details: LAST VISIT GERD (gastroesophageal reflux disease) Fatty liver Transaminitis IBS (irritable bowel syndrome) Hemorrhoid Screen for colon cancer Tubular adenoma of colon Plan Discussed with patient her lab results. Encouraged her to continue lose weight and continue avoiding food high in fat. More protein intake. Avoid carbs. Discussed with patient and stressed the importance of good bowel prep and clear liquid diet day before procedure. Patient was encouraged to eat Jell-O for breakfast lunch and dinner to keep herself food from being hungry and bingeing on something that would cause her colonoscopy to be canceled. Continue o meprazole. I will see patient after the procedure, sooner on as needed basis. She is agreeable to this plan and verbalizes understanding of instructions. She was given the opportunity to ask questions and all questions answered. ? COLONOSCOPY Findings: Terminal Ileum: Not evaluated Cecum: Normal Ascending Colon: Scattered moderate diverticulosis throughout the colon. Transverse Colon: Scattered moderate diverticulosis throughout the colon. Descending Colon: Scattered moderate diverticulosis throughout the colon. Sigmoid Colon: Moderate diverticulosis Rectum: Normal Ano-rectum: Small internal hemorrhoids Colon preparation: Excellent after some irrigation. [place] Bowel Preparation Scale Right colon; 3 Transverse colon: 3 Left colon; 3 (0 = Unprepared colon segment with mucosa not seen due to solid stool that cannot be cleared. 1 = Portion of mucosa of the colon segment seen, but other areas of the colon segment not well seen due to staining, residual stool and/or opaque liquid. 2 = Minor amount of residual staining, small fragments of stool and/or opaque liquid, but mucosa of colon segment seen well. 3 = Entire mucosa of colon segment seen well with no residual staining, small fragments of stool or opaque liquid) Impression and Post Procedure Diagnosis: Colonoscopy Findings: No polyps were detected Moderate diverticulosis seen in the entire colon Small hemorrhoids on retroflexed exam. Plan: Repeat Colonoscopy in 5 years if polyps are adenomatous and due to a history of adenomatous colon polyps. TODAY'S VISIT Patient is here today for follow-up and to discuss colonoscopy results previously patient had colonoscopy that was suboptimal. Apparently patient admits that she ate day before she was going for the procedure. This time patient did great had excellent prep. No polyps were detected, however due to history of tubular adenoma patient will need to repeat colonoscopy in 5 years. Patient denies any ill effects from the prep, anesthesia or procedure itself. Patient is doing well. Denies dyspepsia, dysphagia or odynophagia. Patient reports that she is moving her bowels without any issues. Patient currently is taking omeprazole daily and her symptoms are well controlled [facility] Medical History Transaminitis Tubular adenoma Diverticulosis GERD (gastroesophageal reflux disease) Anxiety and depression Asthma History of panic attacks TIARRA on CPAP Fatty liver IBS (irritable bowel syndrome) Restrictive lung disease Allergic rhinitis Hypothyroidism Overactive bladder Surgical History History of surgery on arm Hx of colonoscopy H/O esophagogastroduodenoscopy History of tubal ligation Hx of cholecystectomy History of elbow surgery Family History Mother Brain aneurysm Maternal Aunt Lung cancer Maternal Uncle Cancer Father Cancer of prostate Colon cancer Other Mental health disorder Social History Housing: Apartment Are you a primary career representative to a significant other at home: No Alcohol intake: never Patient Tobacco Use Status: Former Tobacco user Tobacco use type: Cigarette Cigarettes Per Day: 7 Years Smoked: 40 e-Cigarette/Vaping Use: Never Used service: No Current occupational status: employed 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 Cognitive needs: No Hearing needs: No Vision needs: Yes Female Reproductive History Menstrual Age of Menarche: 16 Review of Systems Const Denies weight gain and Denies weight loss ENT Reports no additional complaints, Denies dysphagia and Denies odynophagia Card Reports no additional complaints Resp Reports no additional complaints GI Denies abdominal pain, Denies belching, Denies melena, Denies bloating, Denies change in bowel habits, Denies dysphagia, Denies excessive flatus, Denies dyspepsia, Denies heartburn, Denies diarrhea, Denies loose stools, Denies nausea, Denies odynophagia and Denies vomiting Reports no additional complaints Musc Reports no additional complaints Neuro Reports no additional complaints Psych Reports no additional complaints Endo Reports no additional complaints Physical Exam Vital Signs: Last Vital Signs Pulse 54 07/15/24 11:04 BP 122/76 07/15/24 11:04 Pulse Ox 97 07/15/24 11:04 Oxygen Delivery Method Room Air 07/15/24 11:04 BMI result Body Mass Index 36.1 Const General: healthy appearing and no acute distress Nutritional Appearance: obese Orientation/consciousness: patient oriented x3 Resp Effort & Inspection: normal respiratory effort, able to speak in complete sentences, no tracheal deviation and symmetric chest movement Auscultation: clear to auscultation bilaterally Cardio Rate: regular rate GI Inspection: Yes normal to inspection, No distended and Yes obesity Palpation (GI): Soft to palpation, not firm, nontender and No hepatosplenomegaly present Auscultation: normal bowel sounds General: Yes no CVA tenderness Back/Spine/Pelvis Back: no CVA tenderness Skin General skin exam: elasticity normal, turgor normal and dry skin Neuro General: patient oriented x3 Psych Appearance: grossly normal Mental Status: mental status grossly normal Assessment & Plan Assessment & Plan (1) Diverticulosis: Code(s): K57.90 - Diverticulosis of intestine, part unspecified, without perforation or abscess without bleeding Category: Medical (2) Transaminitis: Code(s): R74.01 - Elevation of levels of liver transaminase levels Category: Medical (3) Fatty liver: Code(s): K76.0 - Fatty (change of) liver, not elsewhere classified Category: Medical (4) LFT elevation: Code(s): R79.89 - Other specified abnormal findings of blood chemistry Category: Medical (5) GERD (gastroesophageal reflux disease): Code(s): K21.9 - Gastro-esophageal reflux disease without esophagitis Category: Medical Qualifiers: Esophagitis presence: esophagitis presence not specified Qualified Code(s): K21.9 - Gastro-esophageal reflux disease without esophagitis (6) IBS (irritable bowel syndrome): Code(s): K58.9 - Irritable bowel syndrome without diarrhea Qualifiers: Irritable bowel syndrome type: without diarrhea Qualified Code(s): K58.9 - Irritable bowel syndrome without diarrhea (7) Hemorrhoid: Code(s): K64.9 - Unspecified hemorrhoids Qualifiers: Hemorrhoid type: unspecified Qualified Code(s): K64.9 - Unspecified hemorrhoids Plan Colonoscopy in 5 years, sooner on as needed basis. Will recheck liver panel today. Patient will continue taking omeprazole daily. Avoid dietary triggers and late night snacking. Patient was encouraged to lose weight. Follow-up in 6 months, sooner on as needed basis. She is agreeable to this plan and verbalizes understanding of instructions. She was given the opportunity to ask questions and all questions answered. Thank you for allowing me to participate in her care Orders: Orders Liver Panel Today R74.01 - Elevation of levels of liver transaminase levels Medications: Refilled omeprazole 20 mg PO DAILY 90 caps 2RF K21.9 - Gastro-esophageal reflux disease without esophagitis Coding Level of Care Code Est Pt Level 3 (12966) Diagnoses Diverticulosis K57.90 Transaminitis R74.01 Fatty liver K76.0 LFT elevation R79.89 Gastroesophageal reflux disease, unspecified whether esophagitis present K21.9 Esophagitis presence: esophagitis presence not specified Irritable bowel syndrome without diarrhea K58.9 Irritable bowel syndrome type: without diarrhea Hemorrhoids, unspecified hemorrhoid type K64.9 Hemorrhoid type: unspecified Time Spent (min) 25 Comment 15 minutes spent with patient and additional 10 minutes spent reviewing her records
== END 2024-07-15 12:07 | disposition home or self-care (01) ==
PROVIDERS: PCP Internal Medicine; Visit Provider Nurse Practitioner Family
DX: K57.90 Diverticulosis of intestine, part unspecified, without perforation or abscess without bleeding (principal); R74.01 Elevation of levels of liver transaminase levels; K76.0 Fatty (change of) liver, not elsewhere classified; R79.89 Other specified abnormal findings of blood chemistry; K21.9 Gastro-esophageal reflux disease without esophagitis; K58.9 Irritable bowel syndrome, unspecified; K64.9 Unspecified hemorrhoids
CPT/HCPCS: 99213

== ENCOUNTER → 2024-07-15 10:59 | Outpatient (BNVA) | payer MEDICARE, MEDICAID, SELFPAY | PROVIDERS: PCP Internal Medicine; Visit Provider Nurse Practitioner Family | DX: K21.9 Gastro-esophageal reflux disease without esophagitis (principal); K58.9 Irritable bowel syndrome, unspecified; K57.90 Diverticulosis of intestine, part unspecified, without perforation or abscess without bleeding; R74.01 Elevation of levels of liver transaminase levels; K76.0 Fatty (change of) liver, not elsewhere classified; R79.89 Other specified abnormal findings of blood chemistry; K64.9 Unspecified hemorrhoids | CPT/HCPCS: 99212 ==

== ENCOUNTER 2024-08-16 13:33 | Outpatient (AMB) | payer MEDICARE, MEDICAID, SELFPAY ==
[2024-08-16 13:38] VITALS: BP 122/74; PULSE 74; O2SAT 97; BMI 35.7
--- NOTE | 2024-08-16 13:38 | A.OFFPC_ITS ---
Vital Signs 08/16/24 13:38 Height 5 ft 2 in Weight 195 lb 6 oz BMI 35.7 BP 122/74 Blood Pressure Location Lt brachial Position Sitting Pulse 74 Pulse Source Pulse Oximeter Pulse Oximetry (%) 97 Oxygen Delivery Method Room Air Intake Visit Reasons: 3 month follow up Allergies paroxetine [From PAXIL] Allergy (Severe, Verified 08/16/24 13:40) BAD REACTION - HALLUCINATING varenicline [From CHANTIX] Allergy (Severe, Verified 08/16/24 13:40) BAD REACTION - HALLUCINATING, redness and itching Medication List - Last Reconciled 08/16/24 by David Diaz MD albuterol sulfate 90 mcg/actuation 2 puffs inhalation Q6H PRN escitalopram oxalate 10 mg PO DAILY fluticasone propionate 50 mcg/actuation (Children's Flonase Allergy Relief) 1 spray intranasal DAILY levothyroxine 88 mcg PO QAM 90 days montelukast 10 mg PO DAILY 90 days omeprazole 20 mg PO DAILY oxybutynin chloride ER 10 mg PO DAILY 90 days Tobacco use date assessed: 08/16/24 Dental Screening Dental Screen Date: 08/16/24 Did you have a dental visit in the last 12 months?: Yes Did you have a dental problem in the last 6 months where you did not have access to dental care?: No HPI 3 month follow up HPI Details Patient is a 59-year-old female with a history of chronic nasal congestion, sinus pressure, allergies, GERD, anxiety and depression, hypothyroi dism And stress incontinence along with obesity Came in for follow-up appointment CT scan of sinus was ordered which showed 1. Small soft tissue opacity in a right ethmoidal air cell, possibly mucosal thickening and/or small polyps. 2. The paranasal sinuses are otherwise clear. 3. Minimal S-shaped curvature of nasal septum, not significantly deviated. 4. There is soft tissue density in the right parotid gland 0.9 x 0.7 cm, possibly a intraparotid lymph node, versus carotid gland neoplasm, consider follow-up parotid ultrasound. Ultrasound of parotid gland ordered Patient has appointment in October for physical exam Labs are needed before visit fasting order placed. Medication list reviewed Vital signs stable [facility] Medical History Transaminitis Tubular adenoma Diverticulosis GERD (gastroesophageal reflux disease) Anxiety and depression Asthma History of panic attacks TIARRA on CPAP Fatty liver IBS (irritable bowel syndrome) Restrictive lung disease Allergic rhinitis Hypothyroidism Overactive bladder Surgical History History of surgery on arm Hx of colonoscopy H/O esophagogastroduodenoscopy History of tubal ligation Hx of cholecystectomy History of elbow surgery Family History Mother Brain aneurysm Maternal Aunt Lung cancer Maternal Uncle Cancer Father Cancer of prostate Colon cancer Other Mental health disorder Social History Housing: Apartment Are you a primary wound care technician to a significant other at home: No Alcohol intake: never Patient Tobacco Use Status: Former Tobacco user Tobacco use type: Cigarette Cigarettes Per Day: 7 Years Smoked: 40 Packs per year/per ci.00 e-Cigarette/Vaping Use: Never Used service: No Current occupational status: employed 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 Cognitive needs: No Hearing needs: No Vision needs: Yes Female Reproductive History Menstrual Age of Menarche: 16 Questionnaire Thrive Questionnaire Date Thrive assessed: 08/16/24 I am a: Patient What is your living situation today?: I have a steady place to live Within the past 12 months, did the food you bought not last and you didn't have the money to get more?: I choose not to answer this question Within the past 12 months, did you worry whether your food would run out before you got money to buy more?: I choose not to answer this question Do you have trouble paying for medicines?: I choose not to answer this question Do you have trouble getting transportation to medical appointments?: No Do you have trouble paying your heating and electricity bill?: I choose not to answer this question Do you have trouble taking care of your child, family member or friend?: I choose not to answer this question Do you have trouble with day-to-day activities such as bathing, preparing meals, shopping, managing finances, etc.?: I choose not to answer this question Are you interested in more education?: I choose not to answer this question Please select the resources that you would like help with: None Currently or been in a relationship where the following occur: I choose not to answer THRIVE Score: 0 AUDIT C Alcohol Use Questionnaire (AUDIT-C) 1. How often do you have a drink containing alcohol?: Never 3. How often do you have six or more drinks on one occasion?: Never Total Score: 0 Score Reviewed/Action Taken: Yes AGATA-7 AMB Questionnaire AGATA-7 Date AGATA - 7 assessed: 08/16/24 Feeling nervous, anxious, or on edge: 0 = Not at all Not being able to stop or control worryin = Not at all Worrying too much about different things: 0 = Not at all Trouble relaxin = Not at all Being so restless that it is hard to sit still: 0 = Not at all Becoming easily annoyed or irritable: 0 = Not at all Feeling afraid as if something awful might happen: 0 = Not at all Total AGATA-7 score (0-4 normal; 5-9 mild; 10-14 moderate; 15-21 severe): 0 Source: Developed by Drs. Miguel Reyes, Ashly Wong, Darvin Brownlee and colleagues, with an educational darlin from [facility]. AGATA-7 Assessment Billing AGATA-7 Assessment Tool: AGATA-7 Assessment 96321 Review of Systems Const Denies chills and Denies fever(s) ENT Denies epistaxis and Denies nasal discharge Card Denies chest pain Resp Denies chest congestion, Denies cough and Denies hemoptysis GI Denies diarrhea and Denies nausea Skin/Breast Denies rash Neuro Reports no additional complaints Psych Reports no additional complaints Endo Reports no additional complaints Physical exam (Primary Care) Vital Signs: Last Vital Signs Pulse 74 08/16/24 13:38 BP 122/74 08/16/24 13:38 Pulse Ox 97 08/16/24 13:38 Oxygen Delivery Method Room Air 08/16/24 13:38 BMI result Body Mass Index 35.7 Tobacco/Smoking Status: Tobacco use Status Tobacco use date assessed 08/16/24 08/16/24 13:41 Patient Tobacco Use Status Former Tobacco user 08/16/24 13:41 Tobacco use type Cigarette 08/16/24 13:41 e-Cigarette/Vaping Use Never Used 08/16/24 13:41 Thrive Assessment: Date of Thrive Assessment Date Thrive assessed 08/16/24 08/16/24 13:41 Currently or been in a relationship where the following occur: I choose not to answer Const General: cooperative, comfortable and no acute distress Orientation/consciousness: patient oriented x3 HENMT Other: No pain with parotid gland palpation either side Head: Yes normocephalic Eyes General: appearance normal, both eyes and all related structures Neck Neck: Yes supple Resp Effort & Inspection: normal respiratory effort, no cough and no stridor Cardio Rhythm: regular rhythm Heart sounds: S1 normal heart sound present and S2 normal heart sound present Skin General skin exam: turgor normal Neuro General: patient oriented x3, tone normal and moves all extremities Extrem Right lower extremity: no edema Left lower extremity: no edema Assessment and Plan Assessment & Plan (1) Parotid mass: Code(s): K11.8 - Other diseases of salivary glands (2) Overactive bladder: Code(s): N32.81 - Overactive bladder (3) Other specified hypothyroidism: Code(s): E03.8 - Other specified hypothyroidism (4) LFT elevation: Code(s): R79.89 - Other specified abnormal findings of blood chemistry (5) GERD (gastroesophageal reflux disease): Code(s): K21.9 - Gastro-esophageal reflux disease without esophagitis Qualifiers: Esophagitis presence: esophagitis presence not specified Qualified Code(s): K21.9 - Gastro-esophageal reflux disease without esophagitis (6) Anxiety, generalized: Code(s): F41.1 - Generalized anxiety disorder (7) Obesity due to excess calories: Code(s): E66.09 - Other obesity due to excess calories Qualifiers: Body mass index: BMI 34.0-34.9 Obesity classification: adult class 1 (BMI 30 - 34.9) Serious obesity comorbidity presence: without serious comorbidity Qualified Code(s): E66.09 - Other obesity due to excess calories; Z68.34 - Body mass index [BMI] 34.0-34.9, adult (8) Restrictive lung disease: Comment: HAS MILD RESTRICTIVE DISORDER WHICH IS RELATED TO HER BEING OVERWEIGHT. Code(s): J98.4 - Other disorders of lung (9) Allergic rhinitis: Comment: She has chronic, allergic rhinitis, around the year. Code(s): J30.9 - Allergic rhinitis, unspecified Qualifiers: Allergic rhinitis trigger: other Allergic rhinitis seasonality: unspecified Qualified Code(s): J30.89 - Other allergic rhinitis (10) Environmental allergies: Code(s): Z91.09 - Other allergy status, other than to drugs and biological substances (11) Major depression, recurrent: Code(s): F33.9 - Major depressive disorder, recurrent, unspecified Qualifiers: Active/Remission status: in partial remission Qualified Code(s): F33.41 - Major depressive disorder, recurrent, in partial remission Plan Patient is a 59-year-old female with a history of chronic nasal congestion, sinus pressure, allergies, GERD, anxiety and depression, hypothyroidism And stress incontinence along with obesity Came in for follow-up appointment CT scan of sinus was ordered which showed 1. Small soft tissue opacity in a right ethmoidal air cell, possibly mucosal thickening and/or small polyps. 2. The paranasal sinuses are otherwise clear. 3. Minimal S-shaped curvature of nasal septum, not significantly deviated. 4. There is soft tissue density in the right parotid gland 0.9 x 0.7 cm, possibly a intraparotid lymph node, versus carotid gland neoplasm, consider follow-up parotid ultrasound. Ultrasound of parotid gland ordered Patient has appointment in October for physical exam Labs are needed before visit fasting order placed. Medication list reviewed Vital signs stable Orders: Orders Complete Blood Count Auto Diff Today E03.8 - Other specified hypothyroidism, E66.09 - Other obesity due to excess calories, F33.41 - Major depressive disorder, recurrent, in partial remission, F41.1 - Generalized anxiety disorder, J30.9 - Allergic rhinitis, unspecified, J98.4 - Other disorders of lung, K11.8 - Other diseases of salivary glands, K21.9 - Gastro-esophageal reflux disease without esophagitis, N32.81 - Overactive bladder, R79.89 - Other specified abnormal findings of blood chemistry, Z68.34 - Body mass index [BMI] 34.0-34.9, adult, Z91.09 - Other allergy status, other than to drugs and biological substances Comprehensive [place]. Panel Fast Today E03.8 - Other specified hypothyroidism, E66.09 - Other obesity due to excess calories, F33.41 - Major depressive disorder, recurrent, in partial remission, F41.1 - Generalized anxiety disorder, J30.9 - Allergic rhinitis, unspecified, J98.4 - Other disorders of lung, K11.8 - Other diseases of salivary glands, K21.9 - Gastro-esophageal reflux disease without esophagitis, N32.81 - Overactive bladder, R79.89 - Other specified abnormal findings of blood chemistry, Z68.34 - Body mass index [BMI] 34.0-34.9, adult, Z91.09 - Other allergy status, other than to drugs and biological substances Lipid Panel Today E03.8 - Other specified hypothyroidism, E66.09 - Other obesity due to excess calories, F33.41 - Major depressive disorder, recurrent, in partial remission, F41.1 - Generalized anxiety disorder, J30.9 - Allergic rhinitis, unspecified, J98.4 - Other disorders of lung, K11.8 - Other diseases of salivary glands, K21.9 - Gastro-esophageal reflux disease without esophagitis, N32.81 - Overactive bladder, R79.89 - Other specified abnormal findings of blood chemistry, Z68.34 - Body mass index [BMI] 34.0-34.9, adult, Z91.09 - Other allergy status, other than to drugs and biological substances TSH reflex Free T4 Today E03.8 - Other specified hypothyroidism, E66.09 - Other obesity due to excess calories, F33.41 - Major depressive disorder, recurrent, in partial remission, F41.1 - Generalized anxiety disorder, J30.9 - Allergic rhinitis, unspecified, J98.4 - Other disorders of lung, K11.8 - Other diseases of salivary glands, K21.9 - Gastro-esophageal reflux disease without esophagitis, N32.81 - Overactive bladder, R79.89 - Other specified abnormal findings of blood chemistry, Z68.34 - Body mass index [BMI] 34.0-34.9, adult, Z91.09 - Other allergy status, other than to drugs and biological substances Coding Level of Care Code Est Pt Level 4 (80115) Complex EM visit Add On G2211 Diagnoses Parotid mass K11.8 Overactive bladder N32.81 Other specified hypothyroidism E03.8 LFT elevation R79.89 Gastroesophageal reflux disease, unspecified whether esophagitis present K21.9 Esophagitis presence: esophagitis presence not specified Anxiety, generalized F41.1 Class 1 obesity due to excess calories without serious comorbidity with body mass index (BMI) of 34.0 to 34.9 in adult E66.09; Z68.34 Body mass index: BMI 34.0-34.9 Obesity classification: adult class 1 (BMI 30 - 34.9) Serious obesity comorbidity presence: without serious comorbidity Restrictive lung disease J98.4 Allergic rhinitis due to other allergic trigger, unspecified seasonality J30.89 Allergic rhinitis trigger: other Allergic rhinitis seasonality: unspecified Environmental allergies Z91.09 Recurrent major depressive disorder, in partial remission F33.41 Active/Remission status: in partial remission Additional Codes AGATA-7 Assessment Billing - AGATA-7 Assessment Tool: AGATA-7 Assessment 67805 ([id number])
== END 2024-08-16 14:06 | disposition home or self-care (01) ==
PROVIDERS: PCP Internal Medicine; Visit Provider Internal Medicine
DX: K11.8 Other diseases of salivary glands (principal); N32.81 Overactive bladder; E03.8 Other specified hypothyroidism; R79.89 Other specified abnormal findings of blood chemistry; K21.9 Gastro-esophageal reflux disease without esophagitis; F41.1 Generalized anxiety disorder; E66.09 Other obesity due to excess calories; Z68.34 Body mass index [BMI] 34.0-34.9, adult; J98.4 Other disorders of lung; J30.89 Other allergic rhinitis; Z91.09 Other allergy status, other than to drugs and biological substances; F33.41 Major depressive disorder, recurrent, in partial remission

== ENCOUNTER → 2024-08-16 13:33 | Outpatient (BNVA) | payer MEDICARE, MEDICAID, SELFPAY | PROVIDERS: PCP Internal Medicine; Visit Provider Internal Medicine | DX: K11.8 Other diseases of salivary glands (principal); N32.81 Overactive bladder; E03.8 Other specified hypothyroidism; R79.89 Other specified abnormal findings of blood chemistry; K21.9 Gastro-esophageal reflux disease without esophagitis | CPT/HCPCS: 96127; 99212 ==

== ENCOUNTER 2024-08-26 13:33 | Outpatient (REF) | payer MEDICARE, MEDICAID, SELFPAY ==
--- NOTE | ~2024-08-26 | US_ITS ---
EXAMINATION: US SOFT TISSUE HEAD/NECK CLINICAL INFORMATION: Other diseases of salivary glands. Parotid mass, right side, CT scan abnormal. Abnormal CT scan on 06/23/2024 with 0.9 x 0.7 cm soft tissue density in the right parotid gland measuring 0.9 cm, possibly an intraparotid lymph node versus parotid gland neoplasm. COMPARISON: CT sinus without contrast 06/23/2024. TECHNIQUE: Linear transducer grayscale and color Doppler examination of the right and left parotid glands. FINDINGS: Ultrasound images were obtained of the regions of the bilateral parotid glands. A 1.3 x 0.5 x 1.0 cm lymph node with echogenic hilum along the upper aspect of the right parotid gland. A 0.5 x 0.3 x 0.4 cm hypoechoic soft tissue nodule in the lower pole of the right parotid gland of indeterminate etiology. Large 1.8 x 0.8 x 0.7 cm oval reniform mass with hypoechoic periphery, echogenic hilum and small central echogenic focus, possibly representing a calcification within a lymph node, along the inferior aspect of the right parotid. A 0.8 x 0.4 x 0.5 cm lymph node with prominent cortex and echogenic hilum in the upper left parotid gland. A 1.7 x 0.9 x 2.1 cm abnormal-appearing lymph node with echogenic hilum and prominent cortex in the left neck at level 2. US/US soft tiss head and/or neck IMPRESSION: 1. A 1.3 x 0.5 x 1.0 cm lymph node with echogenic hilum along the upper aspect of the right parotid gland. 2. A 0.5 x 0.3 x 0.4 cm hypoechoic soft tissue nodule in the lower pole of the right parotid gland of indeterminate etiology. 3. Large 1.8 x 0.8 x 0.7 cm oval reniform mass with hypoechoic periphery, echogenic hilum and small central echogenic focus, possibly representing a calcification within a lymph node, along the inferior aspect of the right parotid. 4. A 0.8 x 0.4 x 0.5 cm lymph node with prominent cortex and echogenic hilum in the upper left parotid gland. 5. A 1.7 x 0.9 x 2.1 cm abnormal-appearing lymph node with echogenic hilum and prominent cortex in the left neck at level 2. 6. MRI recommended for further evaluation. This study was presented to me on November 15, 2024 for interpretation. PSA staff will provide results to referring provider at this time. Electronically signed by: Kirsten Hector MD 11/16/2024 09:46 AM EST
== END 2024-08-26 13:34 | disposition home or self-care (01) ==
LOC: HO.HMGCX 13:33
PROVIDERS: PCP Internal Medicine; Visit Provider Internal Medicine
DX: K11.8 Other diseases of salivary glands (principal)
CPT/HCPCS: 76536

== ENCOUNTER 2024-09-01 15:57 | Outpatient (AMB) | payer MEDICARE, MEDICAID, SELFPAY ==
[2024-09-01 16:03] VITALS: BP 130/80; PULSE 60; O2SAT 95; BMI 35.5
--- NOTE | 2024-09-01 16:03 | A.OFFVIS_ITS ---
Vital Signs 09/01/24 16:03 Height 5 ft 2 in Weight 194 lb BMI 35.5 BP 130/80 Blood Pressure Location Lt brachial Position Sitting Pulse 60 Pulse Source Pulse Oximeter Pulse Oximetry (%) 95 Oxygen Delivery Method Room Air Intake Visit Reasons: asthma Intake Note: pt is here for follow up and states she is feeling good. breathing is not bad. 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 Required: No Allergies paroxetine [From PAXIL] Allergy (Severe, Verified 09/01/24 16:19) BAD REACTION - HALLUCINATING varenicline [From CHANTIX] Allergy (Severe, Verified 09/01/24 16:19) BAD REACTION - HALLUCINATING, redness and itching Medication List - Last Reconciled 09/01/24 by Samuel Montejo MD albuterol sulfate 90 mcg/actuation 2 puffs inhalation Q6H PRN escitalopram oxalate 10 mg PO DAILY levothyroxine 88 mcg PO QAM 90 days montelukast 10 mg PO DAILY 90 days omeprazole 20 mg PO DAILY oxybutynin chloride ER 10 mg PO DAILY 90 days Do you need a note to return to daycare/school/sports/work: No HPI HPI asthma: Details: Yaz is 59 years old female and is here for routine follow-up after 6 months. She has mild bronchial asthma and allergic rhinitis, but her main problem is obstructive sleep apnea. She uses CPAP every night . Sleeps okay and denies any daytime sleepiness. She has no issue with the mask or CPAP device. Breathing loya also okay she has very little cough or wheezing. The nasal congestion remains well controlled. She does not smoke cigarettes but does smoke weed about once a day to alleviate her anxiety. [facility] Medical History Transaminitis Tubular adenoma Diverticulosis GERD (gastroesophageal reflux disease) Anxiety and depression Asthma History of panic attacks TIARRA on CPAP Fatty liver IBS (irritable bowel syndrome) Restrictive lung disease Allergic rhinitis Hypothyroidism Overactive bladder Surgical History History of surgery on arm Hx of colonoscopy H/O esophagogastroduodenoscopy History of tubal ligation Hx of cholecystectomy History of elbow surgery Family History Mother Brain aneurysm Maternal Aunt Lung cancer Maternal Uncle Cancer Father Cancer of prostate Colon cancer Other Mental health disorder Social History Housing: Apartment Are you a primary child care centre director to a significant other at home: No Alcohol intake: never Patient Tobacco Use Status: Former Tobacco user Tobacco use type: Cigarette Cigarettes Per Day: 7 Years Smoked: 40 e-Cigarette/Vaping Use: Never Used service: No Current occupational status: employed 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 Cognitive needs: No Hearing needs: No Vision needs: Yes Female Reproductive History Menstrual Age of Menarche: 16 Review of Systems Const All systems reviewed & are unremarkable except as noted in HPI and below Eyes Reports no additional complaints ENT Reports nasal congestion (OFF AND ON, WORSE AT THE TIME OF CHANGING WEATHER SAYS) Card Reports no additional complaints Resp Reports as per HPI GI Reports no additional complaints Reports urinary incontinence (OVERACTIVE BLADDER) Musc Reports no additional complaints Skin/Breast Reports system reviewed and no additional complaints, except as documented Neuro Reports no additional complaints Psych Reports depression (BEING TREATED WITH MED) Physical Exam Vital Signs: Last Vital Signs Pulse 60 09/01/24 16:03 BP 130/80 09/01/24 16:03 Pulse Ox 95 09/01/24 16:03 Oxygen Delivery Method Room Air 09/01/24 16:03 BMI result Body Mass Index 35.5 Const General: comfortable, no acute distress, alert and awake Orientation/consciousness: patient oriented x3 HEENT Head: Yes normal to inspection General nose exam: No nasal polyps present, No nasal discharge present and Other nasal findings present (Mild nasal congestion) Face and sinus: Yes sinuses nontender Mouth: oropharynx normal Throat: Yes posterior oropharynx normal Eyes General: appearance normal, both eyes and all related structures Neck Neck: Yes normal visual inspection, Yes no lymphadenopathy, Yes trachea midline and Yes no JVD Thyroid: Thyroid normal Chest Chest palpation & inspection: normal inspection of the chest, normal palpation of entire chest wall and no tenderness Resp Other: Percussion note is resonant, she has good breath sounds on both sides, No wheezes rhonchi or crepitations are heard. Cardio Palpation: normal PMI Rate: regular rate Rhythm: regular rhythm Heart sounds: no gallops and no murmurs GI Palpation (GI): Soft to palpation, nontender, No hepatosplenomegaly present and no masses Auscultation: normal bowel sounds Back/Spine/Pelvis Thoracic/Lumbar Spine: thoracic and lumbar spine normal to inspection Skin General skin exam: no rashes or lesions noted Neuro General: patient oriented x3 and no focal motor deficits Cranial nerves: Yes CN's II-XII intact bilaterally Extrem General: Yes normal to inspection, Yes no clubbing, cyanosis or edema and Yes no calf tenderness Psych Appearance: grossly normal and well kempt Speech and movement: Normal speech and movement present Results Reviewed Results Reviewed: Compliance report is reviewed and she has used 30/30 nights,. 100% Average use per night is 8 hours 37 minutes which is excellent. There is slight air leak. The residual AHI 0.9 Assessment & Plan Assessment & Plan (1) Asthma, mild: Comment: BRONCHIAL ASTHMA, MILD INTERMITTENT, CONTROLLED AND STABLE AT THIS TIME. Code(s): J45.909 - Unspecified asthma, uncomplicated Category: Medical Plan: Use albuterol 2 puffs Q 4-6 hours p.r.n. (2) Obesity: Comment: SHE IS MODERATELY OBESE, THIS CAUSES THE MILD RESTRICTIVE LUNG DISEASE, WELL SLEEP APNEA. Code(s): E66.9 - Obesity, unspecified Category: Medical Plan: Discussed about controlling her weight with diet and continue to do some exercise every day (3) Sleep apnea with use of continuous positive airway pressure (CPAP): Comment: SHE DOES HAVE SLEEP APNEA FOR QUITE SOME TIME. SHE HAS BEEN USING THE CPAP MORE REGULARLY, AND SLEEPS WELL AT LEAST FOR 6-7 HOURS PER NIGHT. Code(s): G47.30 - Sleep apnea, unspecified Category: Medical Plan: Commended for good compliance, advised to continue using CPAP every night. (4) Allergic rhinitis: Comment: She has chronic, allergic rhinitis, around the year. Seems to be under control. Code(s): J30.9 - Allergic rhinitis, unspecified Category: Medical Qualifiers: Allergic rhinitis trigger: other Allergic rhinitis seasonality: unspecified Qualified Code(s): J30.89 - Other allergic rhinitis Plan: Continue montelukast 10 mg daily Coding Level of Care Code Est Pt Level 3 (54565) Diagnoses Asthma, mild J45.909 Obesity E66.9 Sleep apnea with use of continuous positive airway pressure (CPAP) G47.30 Allergic rhinitis due to other allergic trigger, unspecified seasonality J30.89 Allergic rhinitis trigger: other Allergic rhinitis seasonality: unspecified
== END 2024-09-01 16:20 | disposition home or self-care (01) ==
PROVIDERS: PCP Internal Medicine; Visit Provider Internal Medicine
DX: J45.909 Unspecified asthma, uncomplicated (principal); E66.9 Obesity, unspecified; G47.30 Sleep apnea, unspecified; J30.89 Other allergic rhinitis
CPT/HCPCS: 99213

== ENCOUNTER → 2024-09-01 15:57 | Outpatient (BNVA) | payer MEDICARE, MEDICAID, SELFPAY | PROVIDERS: PCP Internal Medicine; Visit Provider Internal Medicine | DX: J45.909 Unspecified asthma, uncomplicated (principal); G47.33 Obstructive sleep apnea (adult) (pediatric); E66.9 Obesity, unspecified; Z99.89 Dependence on other enabling machines and devices; Z68.35 Body mass index [BMI] 35.0-35.9, adult | CPT/HCPCS: 99212 ==

== ENCOUNTER 2024-11-08 14:25 | Outpatient (REF) | payer MEDICARE, MEDICAID, SELFPAY ==
[2024-11-08 16:04] LABS: MANUAL DIFF FLAG NO
[2024-11-08 16:14] LABS: Basophils Absolute Auto 0.1 X10*3/uL (0.0-0.2); Basophils Percent Auto 0.5 % (0-2); Eosinophils Absolute Auto 0.1 X10*3/uL (0.0-0.4); Eosinophils Percent Auto 1.3 % (0-4); Hematocrit 42.4 % (37.0-47.0); Hemoglobin 14.2 g/dl (12.0-16.0); Imm Gran Abs Auto 0.03 X10*3/uL (0.00-0.03); Imm Gran Pct Auto 0.3 % (0.0-0.4); Lymphocytes Absolute Auto 3.7 X10*3/uL (1.2-4.9); Lymphocytes Percent Auto 39.8 % (20-40); Mean Corpuscular HGB Conc 33.5 g/dl (31.0-35.0); Mean Corpuscular Hemoglobin 28.5 pg (27.0-33.0); Mean Platelet Volume 9.7 fL (9.4-12.3); Monocytes Absolute Auto 0.6 X10*3/uL (0.1-1.2); Monocytes Percent Auto 5.9 % (2-11); Neutrophils Absolute Auto 4.9 x10*3/uL (2.0-8.3); Neutrophils Percent Auto 52.2 % (45-73); Platelet Count 244 X10*3/uL (160-400); Red Blood Count 4.99 X10*6/uL (4.20-5.50); Red Cell Distribution Width 13.1 % (11.0-16.0); White Blood Count 9.4 X10*3/uL (4.8-10.8)
[2024-11-08 16:45] LABS: Albumin Level 4.3 g/dL (3.5-5.0); Anion Gap 12 (12-20); Aspartate Amino Transferase 40 U/L (5-31); Bilirubin Total 0.5 mg/dL (0.0-1.0); Blood Urea Nitrogen 11 mg/dL (9-16); Calcium 9.5 mg/dL (8.4-10.2); Carbon Dioxide 28 mmol/L (22-29); Chloride 103 mmol/L (96-108); Cholesterol 194 mg/dL (<200); Estimated Glomerular Filt Rate > 60; Glucose Fasting 84 mg/dL (60-99); HDL Cholesterol 53 mg/dL (>40); LDL Cholesterol Calculated 129 mg/dL (<100); Potassium 3.4 mmol/L (3.3-5.1); Sodium 140 mmol/L (135-145); Total Protein 7.5 g/dL (6.5-8.0); Triglycerides 64 mg/dL (<150)
[2024-11-08 17:10] LABS: TSH reflex Free T4 4.74 uIU/mL (0.32-4.0)
[2024-11-08 17:21] LABS: Alanine Aminotransferase 59 U/L (0-31); Alkaline Phosphatase 69 U/L (39-117)
[2024-11-08 17:41] LABS: Free T4 (Free Thyroxine) 0.98 ng/dL (0.71-1.85)
== END 2024-11-08 14:26 | disposition home or self-care (01) ==
LOC: HO.HMGCLDS 14:25
PROVIDERS: PCP Internal Medicine; Visit Provider Internal Medicine
DX: N32.81 Overactive bladder (principal); J30.9 Allergic rhinitis, unspecified; J98.4 Other disorders of lung; K21.9 Gastro-esophageal reflux disease without esophagitis; E66.09 Other obesity due to excess calories; Z68.34 Body mass index [BMI] 34.0-34.9, adult; R79.89 Other specified abnormal findings of blood chemistry; Z91.09 Other allergy status, other than to drugs and biological substances; F41.1 Generalized anxiety disorder; E03.8 Other specified hypothyroidism; F33.41 Major depressive disorder, recurrent, in partial remission; K11.8 Other diseases of salivary glands
CPT/HCPCS: 36415; 80053; 80061; 84439; 84443; 85025

== ENCOUNTER 2024-11-10 11:46 | Outpatient (REF) | payer MEDICARE, MEDICAID, SELFPAY | END 2024-11-10 11:47 | disposition home or self-care (01) | LOC: HO.MAMMO 11:46 | PROVIDERS: Visit Provider Internal Medicine | DX: Z12.31 Encounter for screening mammogram for malignant neoplasm of breast (principal) | CPT/HCPCS: 77063; 77067 ==

== ENCOUNTER → 2024-11-10 12:00 | Outpatient (BNV) | payer MEDICARE, MEDICAID, SELFPAY | PROVIDERS: Visit Provider Internal Medicine | DX: Z12.31 Encounter for screening mammogram for malignant neoplasm of breast (principal) | CPT/HCPCS: 77063; 77067 ==

== ENCOUNTER 2024-11-18 15:02 | Outpatient (AMB) | payer MEDICARE, MEDICAID, SELFPAY ==
[2024-11-18 15:14] VITALS: BP 128/72; PULSE 61; O2SAT 96; BMI 35.0
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
== END 2024-11-18 16:06 | disposition home or self-care (01) ==
PROVIDERS: Visit Provider Internal Medicine
DX: K11.8 Other diseases of salivary glands (principal); R93.89 Abnormal findings on diagnostic imaging of other specified body structures

== ENCOUNTER → 2024-11-18 15:02 | Outpatient (BNVA) | payer MEDICARE, MEDICAID, SELFPAY | PROVIDERS: Visit Provider Internal Medicine | DX: K11.8 Other diseases of salivary glands (principal); R93.89 Abnormal findings on diagnostic imaging of other specified body structures; Z71.2 Person consulting for explanation of examination or test findings | CPT/HCPCS: 96127; 99212 ==

== ENCOUNTER 2024-11-24 14:23 | Outpatient (REF) | payer MEDICARE, MEDICAID, SELFPAY ==
--- NOTE | ~2024-11-24 | MR_ITS ---
EXAMINATION: MRI NECK WITHOUT AND WITH CONTRAST CLINICAL INFORMATION: CT scan of right parotid gland shows abnormality COMPARISON: CT sinus on 06/23/2024 TECHNIQUE: MRI of the neck was obtained using routine sequences without and with contrast. Intravenous contrast: Gadavist 9 mL. FINDINGS: Bilateral level IIa nodes, likely reactive. The nasopharynx, oropharynx, hypopharynx, and laryngeal structures are unremarkable. There is a subcentimeter lymph node involving the right parotid gland tail. Additional subcentimeter lymph nodes are seen within the left parotid gland superficial lobe. Otherwise, the parotid glands are unremarkable. The submandibular and thyroid glands are also unremarkable. The visualized orbits are unremarkable. The paranasal sinuses and mastoid air cells are clear. The imaged portions of the brain are unremarkable. No acute marrow signal abnormalities. The lung apices are clear. MR/MR orbits face neck wo/w con IMPRESSION: Bilateral subcentimeter intraparotid lymph nodes. Otherwise, no suspicious mass within the right parotid gland as clinically questioned. Electronically signed by: Re Santillan MD 11/24/2024 04:07 PM [place]
[2024-11-24] MEDS: gadobutroL 10 ML VIAL IVPUSH (15:08)
== END 2024-11-24 14:24 | disposition home or self-care (01) ==
LOC: HO.MRI 14:23
PROVIDERS: PCP Internal Medicine; Visit Provider Internal Medicine
DX: K11.8 Other diseases of salivary glands (principal); R93.89 Abnormal findings on diagnostic imaging of other specified body structures
CPT/HCPCS: 70543; A9585

== ENCOUNTER 2024-11-29 14:00 | Outpatient (AMB) | payer MEDICARE, MEDICAID, SELFPAY ==
--- NOTE | 2024-11-29 14:05 | A.OFFPC_ITS ---
Vital Signs 11/29/24 14:11 Height 5 ft 2 in Weight 190 lb 8 oz BMI 34.8 BP 120/76 Blood Pressure Location Lt brachial Position Sitting Pulse 67 Pulse Source Pulse Oximeter Pulse Oximetry (%) 97 Oxygen Delivery Method Room Air Intake Visit Reasons: Annual PE Allergies paroxetine [From PAXIL] Allergy (Severe, Verified 11/29/24 14:14) BAD REACTION - HALLUCINATING varenicline [From CHANTIX] Allergy (Severe, Verified 11/29/24 14:14) BAD REACTION - HALLUCINATING, redness and itching Medication List - Last Reconciled 11/29/24 by David Diaz MD albuterol sulfate 90 mcg/actuation 2 puffs inhalation Q6H PRN escitalopram oxalate 10 mg PO DAILY levothyroxine 88 mcg PO QAM 90 days montelukast 10 mg PO DAILY 90 days omeprazole 20 mg PO DAILY oxybutynin chloride ER 10 mg PO DAILY 90 days Tobacco use date assessed: 11/29/24 Dental Screening Dental Screen Date: 11/29/24 Did you have a dental visit in the last 12 months?: No Did you have a dental problem in the last 6 months where you did not have access to dental care?: No Was dental information given to patient?: Patient has dentist HPI Annual PE HPI Details Patient is a 59-year-old female came in today for physical examination Continued to have nasal congestion, I have sent Flonase nasal spray patient does start every night Complaining of feeling tired, we talked about regular intake of thyroid medication since her levels are off because she is missing the dose Vitamin-D supplement sent Mammogram is up-to-date Colonoscopy was in 2021 Patient is established with OBGYN Labs done this month reviewed TSH is slightly elevated LFTs are stable slightly elevated, patient has seen equipment inspector and have fatty liver We will repeat TSH liver panel again before her next visit Patient is on levothyroxine 88 mcg We will continue that for now Repeat labs again in 3 months Other medications are citalopram 10 mg for depression and anxiety controlled Montelukast 10 mg for allergies Omeprazole 20 mg for GERD It oxybutynin 10 mg for urine incontinence Follow-up 3 months, physical exam 1 year [facility] Medical History Transaminitis Tubular adenoma Diverticulosis GERD (gastroesophageal reflux disease) Anxiety and depression Asthma History of panic attacks TIARRA on CPAP Fatty liver IBS (irritable bowel syndrome) Restrictive lung disease Allergic rhinitis Hypothyroidism Overactive bladder Surgical History History of surgery on arm Hx of colonoscopy H/O esophagogastroduodenoscopy History of tubal ligation Hx of cholecystectomy History of elbow surgery Family History Mother Brain aneurysm Maternal Aunt Lung cancer Maternal Uncle Cancer Father Cancer of prostate Colon cancer Other Mental health disorder Social History Housing: Apartment Are you a primary neurocritical care physician to a significant other at home: No Alcohol intake: never Patient Tobacco Use Status: Former Tobacco user Tobacco use type: Cigarette Cigarettes Per Day: 7 Years Smoked: 40 e-Cigarette/Vaping Use: Never Used service: No Current occupational status: employed 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 Cognitive needs: No Hearing needs: No Vision needs: Yes Female Reproductive History Menstrual Age of Menarche: 16 Questionnaire Thrive Questionnaire Date Thrive assessed: 11/29/24 I am a: Patient What is your living situation today?: I have a steady place to live Within the past 12 months, did the food you bought not last and you didn't have the money to get more?: I choose not to answer this question Within the past 12 months, did you worry whether your food would run out before you got money to buy more?: I choose not to answer this question Do you have trouble paying for medicines?: I choose not to answer this question Do you have trouble getting transportation to medical appointments?: No Do you have trouble paying your heating and electricity bill?: I choose not to answer this question Do you have trouble taking care of your child, family member or friend?: I choose not to answer this question Do you have trouble with day-to-day activities such as bathing, preparing meals, shopping, managing finances, etc.?: I choose not to answer this question Are you currently unemployed and looking for a job?: Yes Are you interested in more education?: I choose not to answer this question Please select the resources that you would like help with: None Currently or been in a relationship where the following occur: I choose not to answer THRIVE Score: 0 AUDIT C Alcohol Use Questionnaire (AUDIT-C) 1. How often do you have a drink containing alcohol?: Never 3. How often do you have six or more drinks on one occasion?: Never Total Score: 0 Score Reviewed/Action Taken: Yes AGATA-7 AMB Questionnaire AGATA-7 Date AGATA - 7 assessed: 08/16/24 Source: Developed by Drs. Miguel Reyes, Ashly Wong, Darvin Brownlee and colleagues, with an educational darlin from [employer]. Review of Systems Const Denies chills, Denies fever(s) and Denies headache(s) Eyes Denies blurry vision ENT Denies headache(s), Denies odynophagia and Denies sinus pain Card Denies chest pain at rest and Denies chest pain with activity Resp Denies cough and Denies hemoptysis GI Denies diarrhea, Denies odynophagia, Denies vomiting and Denies hematemesis Reports as per HPI Musc Denies abnormal gait Skin/Breast Reports as per HPI Neuro Denies Neuro-related abnormal movements, Denies Abnormal speech present, Denies abnormal gait, Denies headache(s) and Denies Sensory deficit (Neuro) Psych Denies mood swings and Denies paranoia Endo Reports as per HPI Mahendra/Lymph Reports as per HPI Aller/Immun Reports as per HPI Physical exam (Primary Care) Vital Signs: Last Vital Signs Pulse 67 11/29/24 14:11 BP 120/76 11/29/24 14:11 Pulse Ox 97 11/29/24 14:11 Oxygen Delivery Method Room Air 11/29/24 14:11 BMI result Body Mass Index 34.8 Tobacco/Smoking Status: Tobacco use Status Tobacco use date assessed 11/29/24 11/29/24 14:14 Patient Tobacco Use Status Former Tobacco user 11/29/24 14:06 Tobacco use type Cigarette 11/29/24 14:06 e-Cigarette/Vaping Use Never Used 11/29/24 14:06 Thrive Assessment: Date of Thrive Assessment Date Thrive assessed 11/29/24 11/29/24 14:14 Currently or been in a relationship where the following occur: I choose not to answer Const General: cooperative, comfortable and no acute distress Orientation/consciousness: patient oriented x3 HENMT Head: Yes normocephalic and Yes atraumatic Eyes General: appearance normal, both eyes and all related structures Pupils: Equal, round and reactive pupils present EOM: EOMs intact bilaterally Neck Neck: Yes supple and No lymphadenopathy Thyroid: Thyroid normal Lymphatic: no lymphadenopathy noted Resp Effort & Inspection: normal respiratory effort and able to speak in complete sentences Auscultation: clear to auscultation bilaterally Cardio Heart sounds: S1 normal heart sound present and S2 normal heart sound present GI Palpation (GI): Soft to palpation and nontender Auscultation: normal bowel sounds General: Yes no CVA tenderness Back/Spine/Pelvis Back: no CVA tenderness Skin General skin exam: elasticity normal and turgor normal Neuro General: patient oriented x3 and gait normal Cranial nerves: Yes Equal, round and reactive pupils present Speech: No Abnormal speech present Sensory Exam: No Sensory deficit (Neuro) Coordination: tandem gait normal and Romberg test negative Extrem General: Yes normal exam except as noted and No edema Coding Level of Care Code Est Pt Level 3 (40086) Est Pt Prev Care 40-64y(65269) Diagnoses Encounter for general adult medical examination with abnormal findings Z00.01 Other specified hypothyroidism E03.8 Fatty liver K76.0 Recurrent major depressive disorder, in partial remission F33.41 Active/Remission status: in partial remission Allergic rhinitis, unspecified seasonality, unspecified trigger J30.9 Allergic rhinitis trigger: unspecified Allergic rhinitis seasonality: unspecified Anxiety, generalized F41.1 Overactive bladder N32.81 Assessment & Plan Assessment & Plan (1) Encounter for general adult medical examination with abnormal findings: Code(s): Z00.01 - Encounter for general adult medical examination with abnormal findings Category: Medical (2) Other specified hypothyroidism: Code(s): E03.8 - Other specified hypothyroidism Category: Medical (3) Fatty liver: Code(s): K76.0 - Fatty (change of) liver, not elsewhere classified Category: Medical (4) Major depression, recurrent: Code(s): F33.9 - Major depressive disorder, recurrent, unspecified Category: Medical Qualifiers: Active/Remission status: in partial remission Qualified Code(s): F33.41 - Major depressive disorder, recurrent, in partial remission (5) Allergic rhinitis: Code(s): J30.9 - Allergic rhinitis, unspecified Category: Medical Qualifiers: Allergic rhinitis trigger: unspecified Allergic rhinitis seasonality: unspecified Qualified Code(s): J30.9 - Allergic rhinitis, unspecified (6) Anxiety, generalized: Code(s): F41.1 - Generalized anxiety disorder Category: Medical (7) Overactive bladder: Code(s): N32.81 - Overactive bladder Category: Medical Plan Patient is a 59-year-old female came in today for physical examination Continued to have nasal congestion, I have sent Flonase nasal spray patient does start every night Complaining of feeling tired, we talked about regular intake of thyroid medication since her levels are off because she is missing the dose Vitamin-D supplement sent Mammogram is up-to-date Colonoscopy was in 2021 Patient is established with OBGYN Labs done this month reviewed TSH is slightly elevated LFTs are stable slightly elevated, patient has seen equipment inspector and have fatty liver We will repeat TSH liver panel again before her next visit Patient is on levothyroxine 88 mcg We will continue that for now Repeat labs again in 3 months Other medications are citalopram 10 mg for depression and anxiety controlled Montelukast 10 mg for allergies Omeprazole 20 mg for GERD It oxybutynin 10 mg for urine incontinence Follow-up 3 months, physical exam 1 year Orders: Orders TSH reflex Free T4 Today E03.8 - Other specified hypothyroidism, K76.0 - Fatty (change of) liver, not elsewhere classified Liver Panel Today E03.8 - Other specified hypothyroidism, K76.0 - Fatty (change of) liver, not elsewhere classified Medications: New cholecalciferol (vitamin D3) 25 mcg PO DAILY 90 days 90 caps 1RF fluticasone propionate 50 mcg/actuation (Flonase Allergy Relief) administer into each nostril 1 spray intranasal DAILY 16 grams 2RF
[2024-11-29 14:11] VITALS: BP 120/76; PULSE 67; O2SAT 97; BMI 34.8
== END 2024-11-29 14:31 | disposition home or self-care (01) ==
PROVIDERS: PCP Internal Medicine; Visit Provider Internal Medicine
DX: Z00.00 Encounter for general adult medical examination without abnormal findings (principal); E03.8 Other specified hypothyroidism; K76.0 Fatty (change of) liver, not elsewhere classified; F33.41 Major depressive disorder, recurrent, in partial remission; J30.9 Allergic rhinitis, unspecified; F41.1 Generalized anxiety disorder; N32.81 Overactive bladder

== ENCOUNTER 2025-01-20 16:27 | Outpatient (AMB) | payer MEDICARE, MEDICAID, SELFPAY ==
--- NOTE | 2025-01-20 16:28 | MHC.OFFVIS ---
Vital Signs 01/20/25 16:37 Height 5 ft 2 in Weight 193 lb 1.999 oz BMI 35.3 BP 136/68 Blood Pressure Location Rt brachial Position Sitting Pulse 60 Pulse Source Pulse Oximeter Pulse Oximetry (%) 94 Oxygen Delivery Method Room Air Intake Visit Reasons: 6 month follow up Intake Note: ESTABLISHED PATIENT for diverticulosis + NAFLD mgmt. Lab done. Chief Complaint; Pt denies any GI concerns at this time. Histology Technician Required: No Allergies paroxetine [From PAXIL] Allergy (Severe, Verified 02/14/25 14:13) BAD REACTION - HALLUCINATING varenicline [From CHANTIX] Allergy (Severe, Verified 02/14/25 14:13) BAD REACTION - HALLUCINATING, redness and itching HPI HPI 6 month follow up: Details: LAST VISIT: Diverticulosis Transaminitis Fatty liver LFT elevation GERD (gastroesophageal reflux disease) IBS (irritable bowel syndrome) Hemorrhoid Plan Colonoscopy in 5 years, sooner on as needed basis. Will recheck liver panel today. Patient will continue taking omeprazole daily. Avoid dietary triggers and late night snacking. Patient was encouraged to lose weight. Follow-up in 6 months, sooner on as needed basis. She is agreeable to this plan and verbalizes understanding of instructions. She was given the opportunity to ask questions and all questions answered. ? Thank you for allowing me to participate in her care Orders Orders Liver Panel Today R74.01 Medications Refilled omeprazole 20 mg PO DAILY 90 caps 2RF K21.9 TODAY'S VISIT: Patient is here today for follow-up. Patient reports that she has been doing well. Her symptoms of acid reflux are suppressed. Patient is taking omeprazole daily. Occasionally she forgets, however she reports that she no longer has acid reflux. Denies dyspepsia, dysphagia or odynophagia. Reports that she is moving her bowels well. No longer needs to take anything to have. Patient reports also that she changed her diet and trying to eat healthier. Patient is of low keeping herself busy. Denies melena, hematochezia, unintentional weight loss or ribbon like stools. Patient had a colonoscopy last year his lead history of tubular adenoma and recommendation was to repeat colonoscopy in 5 years. Patient will be due in 2028, sooner if clinically necessary. [facility] Medical History Transaminitis Tubular adenoma Diverticulosis GERD (gastroesophageal reflux disease) Anxiety and depression Asthma History of panic attacks TIARRA on CPAP Fatty liver IBS (irritable bowel syndrome) Restrictive lung disease Allergic rhinitis Hypothyroidism Overactive bladder Surgical History History of surgery on arm Hx of colonoscopy H/O esophagogastroduodenoscopy History of tubal ligation Hx of cholecystectomy History of elbow surgery Family History Mother Brain aneurysm Maternal Aunt Lung cancer Maternal Uncle Cancer Father Cancer of prostate Colon cancer Other Mental health disorder Social History Housing: Apartment Are you a primary care center manager to a significant other at home: No Alcohol intake: never Patient Tobacco Use Status: Former Tobacco user Tobacco use type: Cigarette Cigarettes Per Day: 7 Years Smoked: 40 e-Cigarette/Vaping Use: Never Used service: No Current occupational status: employed 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 Cognitive needs: No Hearing needs: No Vision needs: Yes Female Reproductive History Menstrual Age of Menarche: 16 Review of Systems Const Denies weight gain and Denies weight loss ENT Reports no additional complaints, Denies dysphagia and Denies odynophagia Card Reports no additional complaints Resp Reports no additional complaints GI Denies abdominal pain, Denies belching, Denies melena, Denies bloating, Denies change in bowel habits, Denies dysphagia, Denies excessive flatus, Denies dyspepsia, Denies heartburn, Denies diarrhea, Denies loose stools, Denies nausea, Denies odynophagia and Denies vomiting Musc Reports no additional complaints Neuro Reports no additional complaints Psych Reports no additional complaints Endo Reports no additional complaints Physical Exam Vital Signs: Last Vital Signs Pulse 60 01/20/25 16:37 BP 136/68 01/20/25 16:37 Pulse Ox 94 01/20/25 16:37 Oxygen Delivery Method Room Air 01/20/25 16:37 BMI result Body Mass Index 35.3 Const General: healthy appearing and no acute distress Nutritional Appearance: obese Orientation/consciousness: patient oriented x3 Resp Effort & Inspection: normal respiratory effort, able to speak in complete sentences, no tracheal deviation and symmetric chest movement Auscultation: clear to auscultation bilaterally Cardio Rate: regular rate GI Inspection: Yes normal to inspection, No distended and Yes obesity Palpation (GI): Soft to palpation, not firm, nontender and No hepatosplenomegaly present Auscultation: normal bowel sounds General: Yes no CVA tenderness Back/Spine/Pelvis Back: no CVA tenderness Skin General skin exam: elasticity normal, turgor normal and dry skin Neuro General: patient oriented x3 Psych Appearance: grossly normal Mental Status: mental status grossly normal Results Reviewed Results Reviewed: Laboratory Tests 02/19/24 11/08/24 12:45 14:35 AST 40 H ALT 59 H Alkaline Phosphatase 69 Liver Fibrosis Stage F0 Assessment & Plan Assessment & Plan (1) Diverticulosis: Code(s): K57.90 - Diverticulosis of intestine, part unspecified, without perforation or abscess without bleeding Category: Medical (2) Transaminitis: Code(s): R74.01 - Elevation of levels of liver transaminase levels Category: Medical (3) Fatty liver: Code(s): K76.0 - Fatty (change of) liver, not elsewhere classified Category: Medical (4) LFT elevation: Code(s): R79.89 - Other specified abnormal findings of blood chemistry Category: Medical (5) GERD (gastroesophageal reflux disease): Code(s): K21.9 - Gastro-esophageal reflux disease without esophagitis Category: Medical Qualifiers: Esophagitis presence: esophagitis presence not specified Qualified Code(s): K21.9 - Gastro-esophageal reflux disease without esophagitis (6) IBS (irritable bowel syndrome): Code(s): K58.9 - Irritable bowel syndrome, unspecified Qualifiers: Irritable bowel syndrome type: without diarrhea Qualified Code(s): K58.9 - Irritable bowel syndrome, unspecified (7) Hemorrhoid: Code(s): K64.9 - Unspecified hemorrhoids Qualifiers: Hemorrhoid type: unspecified Qualified Code(s): K64.9 - Unspecified hemorrhoids Plan Patient will continue taking omeprazole. Avoid dietary triggers and latex docusate staying upright for minimal 3 hours after meals discussed with patient. Patient was encouraged to increase fiber in her diet, exercise. Increase fluid intake and activity to promote better bowel feel is the. Follow-up in 6 months, sooner on as needed basis. She is agreeable to this plan and verbalizes understanding of instructions. She was given the opportunity to ask questions and all questions answered. Thank you for allowing me to participate in her care Medications: Refilled omeprazole 20 mg PO DAILY 90 caps 3RF K21.9 - Gastro-esophageal reflux disease without esophagitis Coding Level of Care Code Est Pt Level 3 (39594) Diagnoses Diverticulosis K57.90 Transaminitis R74.01 Fatty liver K76.0 LFT elevation R79.89 Gastroesophageal reflux disease, unspecified whether esophagitis present K21.9 Esophagitis presence: esophagitis presence not specified Irritable bowel syndrome without diarrhea K58.9 Irritable bowel syndrome type: without diarrhea Hemorrhoids, unspecified hemorrhoid type K64.9 Hemorrhoid type: unspecified Time Spent (min) 25 Comment 15 minutes spent with patient and additional 10 minutes spent reviewing her records
[2025-01-20 16:37] VITALS: BP 136/68; PULSE 60; O2SAT 94; BMI 35.3
== END 2025-01-20 16:47 | disposition home or self-care (01) ==
LOC: HO.HGI 16:27
PROVIDERS: PCP Internal Medicine; Visit Provider Nurse Practitioner Family
DX: K57.90 Diverticulosis of intestine, part unspecified, without perforation or abscess without bleeding (principal); R74.01 Elevation of levels of liver transaminase levels; K76.0 Fatty (change of) liver, not elsewhere classified; R79.89 Other specified abnormal findings of blood chemistry; K21.9 Gastro-esophageal reflux disease without esophagitis; K58.9 Irritable bowel syndrome, unspecified; K64.9 Unspecified hemorrhoids
CPT/HCPCS: 99213

== ENCOUNTER → 2025-01-20 16:27 | Outpatient (BNVA) | payer MEDICARE, MEDICAID, SELFPAY | PROVIDERS: PCP Internal Medicine; Visit Provider Nurse Practitioner Family | DX: K57.90 Diverticulosis of intestine, part unspecified, without perforation or abscess without bleeding (principal); K76.0 Fatty (change of) liver, not elsewhere classified; K21.9 Gastro-esophageal reflux disease without esophagitis; K58.9 Irritable bowel syndrome, unspecified; K64.9 Unspecified hemorrhoids; R74.01 Elevation of levels of liver transaminase levels; R79.89 Other specified abnormal findings of blood chemistry | CPT/HCPCS: 99212 ==

== ENCOUNTER 2025-02-03 13:05 | Outpatient (AMB) | payer MEDICARE, MEDICAID, SELFPAY ==
[2025-02-03 13:39] VITALS: BP 132/78; PULSE 62; TEMP 36.6; O2SAT 96; BMI 35.3
--- NOTE | 2025-02-03 13:39 | AM.OFFWIN_ITS ---
Intake Vital Signs 02/03/25 13:39 Height 5 ft 2 in Weight 193 lb BMI 35.3 BP 132/78 Blood Pressure Location Lt brachial Position Sitting Pulse 62 Pulse Source Pulse Oximeter Temp 98 F Temp Source Oral Pulse Oximetry (%) 96 Intake Visit Reasons: EP Swollen LT eye Intake Note: pt is here for swollen left eye Patient Tobacco Use Status: Former Tobacco user Allergies paroxetine [From PAXIL] Allergy (Severe, Verified 02/03/25 13:40) BAD REACTION - HALLUCINATING varenicline [From CHANTIX] Allergy (Severe, Verified 02/03/25 13:40) BAD REACTION - HALLUCINATING, redness and itching Do you need a note to return to daycare/school/sports/work: No HPI EP Swollen LT eye HPI Details 59 year old female patient presents to [facility] clinic today with report of redness and abnormal appearance to outer aspect of left eye. States she noticed this about 4 months ago. Denies any vision changes or eye pain/dryness. She has an ophthalmology appointment at the end of this month. [facility] Medical History Transaminitis Tubular adenoma Diverticulosis GERD (gastroesophageal reflux disease) Anxiety and depression Asthma History of panic attacks TIARRA on CPAP Fatty liver IBS (irritable bowel syndrome) Restrictive lung disease Allergic rhinitis Hypothyroidism Overactive bladder Surgical History History of surgery on arm Hx of colonoscopy H/O esophagogastroduodenoscopy History of tubal ligation Hx of cholecystectomy History of elbow surgery Family History Mother Brain aneurysm Maternal Aunt Lung cancer Maternal Uncle Cancer Father Cancer of prostate Colon cancer Other Mental health disorder Social History Housing: Apartment Are you a primary tire care manager to a significant other at home: No Alcohol intake: never Patient Tobacco Use Status: Former Tobacco user Tobacco use type: Cigarette Cigarettes Per Day: 7 Years Smoked: 40 e-Cigarette/Vaping Use: Never Used service: No Current occupational status: employed 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 Cognitive needs: No Hearing needs: No Vision needs: Yes Female Reproductive History Menstrual Age of Menarche: 16 Review of Systems Const All systems reviewed & are unremarkable except as noted in HPI and below Physical Exam Vital Signs: Last Vital Signs Temp 98 F 02/03/25 13:39 Pulse 62 02/03/25 13:39 BP 132/78 02/03/25 13:39 Pulse Ox 96 02/03/25 13:39 BMI result Body Mass Index 35.3 Const General: cooperative, healthy appearing and no acute distress Limitations: no limitations HEENT Head: Yes normal to inspection Ears: hearing grossly normal bilaterally Eyes Other: yellowish growth left lateral eye/corneal area - consistent with pterygium Alignment and Position: alignment normal Eyelids: Yes eyelids normal Conjunctivae: conjunctivae normal Pupils: Equal, round and reactive pupils present EOM: EOMs intact bilaterally Direct Ophthalmoscopy: normal light reflex and no photophobia Neck Neck: Yes no lymphadenopathy Resp Effort & Inspection: normal respiratory effort Neuro Cranial nerves: Yes Equal, round and reactive pupils present Assessment & Plan Assessment & Plan (1) Pterygium of left eye: Code(s): H11.002 - Unspecified pterygium of left eye Plan: Presentation consistent with pterygium of left eye. We discussed that since it is small and asymptomatic, there is likely no treatment necessary for this. She is, however, seeing her transaction manager later this month for routine visit, and I advised her to address this at that time. I advised her to purchase [id number] lubricating drops if needed, should she experience any dry eye symptoms. All questions were answered and patient verbalizes understanding and agrees to plan Coding Level of Care Code Est Pt Level 4 (75624) Diagnoses Pterygium of left eye H11.002
--- OUTSIDE RECORDS SUMMARY | 2025-02-03 14:44 | XMS_ITS | Clinical Summary ---
Author Organization [facility] Address [address] [place] [address] Care Team Providers Care Racing Mechanic Name Role Phone Name, Rhett GARZA Primary Care Provider [phone] Surgical History Surgery Date Site/Laterality Comments OTHER SURGICAL HISTORY PROCEDURE: MD LAPAROSCOPY SALPINGOSTOMY; COMMENT: one ovary remains OTHER SURGICAL HISTORY PROCEDURE: HISTORICAL ARM SURGERY; COMMENT: orif of right elbow Medical History Medical History Date Comments Depressive disorder, not els ewhere classified DX:Depressive disorder, not elsewhere classified Tobacco use disorder 08/05/2006 DX:Tobacco use disorder Lumbago 05/07/2007 DX:Lumbago Hypothyroid 04/23/2011 DX:Hypothyroid Family History Medical History Relation Name Comments Other: hepatitis C Daughter 1 Diabetes Mother Other: cerebral aneurysm Mother Other: cerebral aneurysm Sister 1 Blindness Neg Hx Cataracts Neg Hx Glaucoma Neg Hx Macular degeneration Neg Hx Strabismus Neg Hx Relation Name Status Comments Brother 1 Alive Brother 2 Alive Brother 3 Daughter 1 Daughter 2 Alive not known Father Alive not known Mother brain aneurysm, DM, HTN Sister 1 Sister 2 Alive DM, brain aneur ysm Sister 3 Alive brain aneurysm Social History Tobacco Use Types Packs/Day Years Used Date Smoking Tobacco: Former Cigarettes Q uit: 11/30/2010 Smokeless Tobacco: Former Quit: 05/29/2012 Alcohol Use Standard Drinks/Week Comments No 0 (1 standard drink = 0.6 oz pur e alcohol) Comments Unknown Sex and Gender Information Value Date Recorded Sex Assigned at Not on file Legal Sex Female 5:52 AM EST Gender Identity Not on file Sexual Orientation Not on file Obstetrics History Plan of Treatment Health Maintenance Due Date Last Done Comments Breast Cancer Screening 1967 Cervical Cancer Screening: Pap Smear 1988 DTaP,Tdap,and Td Vaccines (2 - Td or Tdap) 02/18/2017 02/18/2007 Pneumococcal Vaccine: 50+ Years (1 of 1 - PCV) 2017 Zoster Vaccines (1 of 2) 2017 COVID-19 Vaccine (1 - 2023-25 season) 2024 Influenza Vaccine (#1) 2024 2, 08/07/2011, 08/27/2010, Additional history exists MMR Vaccines Aged Out 01/19/2004 No longer eligi ble based on patient's age to complete this topic Hepatitis B Vaccines Completed 05/16/2004, 01/19/2004, 12/19/2003 HIB Vaccines Aged Out No longer eligi ble based on patient's age to complete this topic HPV Vaccines Aged Out No longer eligi ble based on patient's age to complete this topic Hepatitis A Vaccines Aged Out No long er eligible based on patient's age to complete this topic IPV Vaccines Aged Out No longer eligi ble based on patient's age to complete this topic Meningococcal ACWY Vaccine Aged Out N o longer eligible based on patient's age to complete this topic Meningococcal B Vacine Aged Out No lo nger eligible based on patient's age to complete this topic Pneumococcal Vaccine: Pediatrics (0 to 5 Years) and At-Risk Patients (6 to 64 Years) Aged Out No longer eligible based on patient's age to complete this topic RSV Immunization Patients Under 20 months Aged Out No longer eligible based on patient's age to complete this topic Varicella Vaccines Aged Out No longer eligible based on patient's age to complete this topic Care Teams Racing Mechanic Relationship Specialty Start Date End Date Name, MD Rhett [address] [place] [address] PCP - General 07/31/1991
== END 2025-02-03 14:33 | disposition home or self-care (01) ==
PROVIDERS: PCP Internal Medicine; Visit Provider Nurse Practitioner Family
DX: H11.002 Unspecified pterygium of left eye (principal)

== ENCOUNTER → 2025-02-03 13:05 | Outpatient (BNVA) | payer MEDICARE, MEDICAID, SELFPAY | PROVIDERS: PCP Internal Medicine; Visit Provider Nurse Practitioner Family | DX: H11.002 Unspecified pterygium of left eye (principal) | CPT/HCPCS: 99212 ==

== ENCOUNTER 2025-02-07 13:33 | Outpatient (AMB) | payer MEDICARE, MEDICAID, SELFPAY ==
--- NOTE | 2025-02-07 13:45 | AM.OFFWIN_ITS ---
Intake Vital Signs 02/07/25 13:47 Height 52 ft Weight 187 lb BMI 0.3 BP 130/84 Blood Pressure Location Lt brachial Position Sitting Pulse 70 Pulse Source Pulse Oximeter Temp 98.3 F Temp Source Oral Pulse Oximetry (%) 97 Oxygen Delivery Method Room Air Intake Visit Reasons: EP severe stomach pain, diarreah Intake Note: Patient here for severe stomach pain, diarrhea that started yesterday. Patient Tobacco Use Status: Former Tobacco user Allergies paroxetine [From PAXIL] Allergy (Severe, Verified 02/07/25 13:48) BAD REACTION - HALLUCINATING varenicline [From CHANTIX] Allergy (Severe, Verified 02/07/25 13:48) BAD REACTION - HALLUCINATING, redness and itching Do you need a note to return to daycare/school/sports/work: Yes HPI HPI Comments History of Present Illness Details History of Present Illness - The patient is a 59-year-old female pr esenting with gastrointestinal complaints including diarrhea and stomach discomfort. - Initial onset of symptoms occurred las t night when she awoke at 1:00 AM, noticing extensive abdominal discomfort associated with burping and flatulence. - She reported loose bowel movements but denied any presence of blood or black in the stool. Accompanying symptoms like fever, nausea, and vomiting were not present. - Prior ingestion of soda and a history of acid reflux were noted, although no other food intake raised suspicion apart from a cheeseburger, which was not consumed by anyone else. - No recent use of antibiotics or tax services intern ational travel history was reported, and the patient confirmed she lives alone. - Patient does not have a gallbladder bu t does have an appendix. Physical Exam General: Cooperative, healthy appearing, comfortable, no acute distress and well developed Orientation: Patient oriented x3 Limitations: No limitations Head: Normal to inspection Ears: Hearing grossly normal bilaterally, but patient reports ear pain Nose: Normal external nose present Face and sinus: Normal facial exam Eyes: Appearance normal, both eyes and all related structures Neck: Normal visual inspection and Yes full ROM Respiratory: Normal respiratory effort and able to speak in complete sentences. GI: Soft, hyperactive bowel sounds, generalized tenderness Skin: No rashes or lesions noted Neuro: Patient oriented x3 Extremities: Normal to inspection [facility] Medical History Transaminitis Tubular adenoma Diverticulosis GERD (gastroesophageal reflux disease) Anxiety and depression Asthma History of panic attacks TIARRA on CPAP Fatty liver IBS (irritable bowel syndrome) Restrictive lung disease Allergic rhinitis Hypothyroidism Overactive bladder Surgical History History of surgery on arm Hx of colonoscopy H/O esophagogastroduodenoscopy History of tubal ligation Hx of cholecystectomy History of elbow surgery Family History Mother Brain aneurysm Maternal Aunt Lung cancer Maternal Uncle Cancer Father Cancer of prostate Colon cancer Other Mental health disorder Social History Housing: Apartment Are you a primary hearing healthcare practitioner to a significant other at home: No Alcohol intake: never Patient Tobacco Use Status: Former Tobacco user Tobacco use type: Cigarette Cigarettes Per Day: 7 Years Smoked: 40 e-Cigarette/Vaping Use: Never Used service: No Current occupational status: employed 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 Cognitive needs: No Hearing needs: No Vision needs: Yes Female Reproductive History Menstrual Age of Menarche: 16 Review of Systems Const All systems reviewed & are unremarkable except as noted in HPI and below Physical Exam Vital Signs: Last Vital Signs Temp 98.3 F 02/07/25 13:47 Pulse 70 02/07/25 13:47 BP 130/84 02/07/25 13:47 Pulse Ox 97 02/07/25 13:47 Oxygen Delivery Method Room Air 02/07/25 13:47 BMI result Body Mass Index 0.3 Assessment & Plan Assessment & Plan (1) Viral gastroenteritis: Code(s): A08.4 - Viral intestinal infection, unspecified Plan: VSS, pt well appearing and PE unremarkable. The symptomatology suggests a viral etiology, possibly viral gastroenteritis. Supportive care through fluid and dietary management was initiated with advice to avoid lactose, spicy, and fried foods, underscoring the need for hydration through electrolyte-balanced drinks. Emphasis was placed on personal hygiene due to the contagious nature of potential viral gastroenteritis, alongside instructions to refrain from work until symptom-free for at least 24 hours. The patient was advised on symptomatic relief through fluid management and diet modification while educating her on the precautionary measures necessary to prevent viral spread. Active monitoring for any symptom change or progression was also stressed. Patient was informed and verbally consented to the use of an ambient scribe for clinic note documentation during this visit. Coding Level of Care Code Est Pt Level 3 (93587) Diagnoses Viral gastroenteritis A08.4
[2025-02-07 13:47] VITALS: BP 130/84; PULSE 70; TEMP 36.8; O2SAT 97
--- OUTSIDE RECORDS SUMMARY | 2025-02-07 16:24 | XMS_ITS | Clinical Summary ---
Author Organization [facility] Address [address] [place] [address] Care Team Providers Care Computator Name Role Phone Name, Rhett GARZA Primary Care Provider [phone] Surgical History Surgery Date Site/Laterality Comments OTHER SURGICAL HISTORY PROCEDURE: [place] LAPAROSCOPY SALPINGOSTOMY; COMMENT: one ovary remains OTHER [...] age to complete this topic Care Teams Computator Relationship Specialty Start Date End Date Name, MD Rhett [address] [place] [address] PCP - General 07/31/1991
== END 2025-02-07 14:47 | disposition home or self-care (01) ==
PROVIDERS: PCP Internal Medicine; Visit Provider Physician Assistant
DX: A08.4 Viral intestinal infection, unspecified (principal)

== ENCOUNTER → 2025-02-07 13:33 | Outpatient (BNVA) | payer MEDICARE, MEDICAID, SELFPAY | PROVIDERS: PCP Internal Medicine; Visit Provider Physician Assistant | DX: A08.4 Viral intestinal infection, unspecified (principal) | CPT/HCPCS: 99212 ==

== ENCOUNTER 2025-02-14 13:57 | Outpatient (REF) | payer MEDICARE, MEDICAID, SELFPAY ==
[2025-02-14 17:26] LABS: TSH reflex Free T4 1.55 uIU/mL (0.32-4.0)
== END 2025-02-14 13:58 | disposition home or self-care (01) ==
LOC: HO.HMGCLDS 13:57
PROVIDERS: PCP Internal Medicine; Visit Provider Internal Medicine
DX: E03.8 Other specified hypothyroidism (principal); R21 Rash and other nonspecific skin eruption; G56.03 Carpal tunnel syndrome, bilateral upper limbs; F33.41 Major depressive disorder, recurrent, in partial remission; J30.9 Allergic rhinitis, unspecified; F41.1 Generalized anxiety disorder; N32.81 Overactive bladder; K21.9 Gastro-esophageal reflux disease without esophagitis; N39.3 Stress incontinence (female) (male); G47.33 Obstructive sleep apnea (adult) (pediatric); Z79.899 Other long term (current) drug therapy; Z91.09 Other allergy status, other than to drugs and biological substances; Z99.89 Dependence on other enabling machines and devices
CPT/HCPCS: 36415; 84443; 96127; 99212

== ENCOUNTER 2025-02-14 13:57 | Outpatient (AMB) | payer MEDICARE, MEDICAID, SELFPAY ==
--- NOTE | 2025-02-14 14:07 | A.OFFPC_ITS ---
Vital Signs 02/14/25 14:10 Height 5 ft 2 in Weight 188 lb 6 oz BMI 34.5 BP 126/80 Blood Pressure Location Lt brachial Position Sitting Pulse 73 Pulse Source Pulse Oximeter Temp 98 F Temp Source Oral Pulse Oximetry (%) 95 Oxygen Delivery Method Room Air Intake Visit Reasons: 3m follow up Allergies paroxetine [From PAXIL] Allergy (Severe, Verified 02/14/25 14:13) BAD REACTION - HALLUCINATING varenicline [From CHANTIX] Allergy (Severe, Verified 02/14/25 14:13) BAD REACTION - HALLUCINATING, redness and itching Medication List - Last Reconciled 02/14/25 by David Diaz MD albuterol sulfate 90 mcg/actuation 2 puffs inhalation Q6H PRN cholecalciferol (vitamin D3) 25 mcg PO DAILY 90 days escitalopram oxalate 10 mg PO DAILY fluticasone propionate 50 mcg/actuation (Flonase Allergy Relief) 1 spray intranasal DAILY levothyroxine 88 mcg PO QAM 90 days montelukast 10 mg PO DAILY 90 days omeprazole 20 mg PO DAILY oxybutynin chloride ER 10 mg PO DAILY 90 days Tobacco use date assessed: 02/14/25 Dental Screening Dental Screen Date: 02/14/25 Did you have a dental visit in the last 12 months?: No Did you have a dental problem in the last 6 months where you did not have access to dental care?: No Was dental information given to patient?: Patient declined HPI 3m follow up HPI Details History - The patient is a 59-year-old female pr esenting with left sided skin irritation around eye and follow-up on thyroid function. - irritation began possibly due to conta ct with a [employer] waters, initially causing itching and redness around left eye, with persistent redness and puffiness without vision issues. However there is no pain or itching anymore but rash is still present - Follow-up is required for previously a djusted thyroid medication with a past off result in October; labs were missed, needing current completion . - Bilateral carpal tunnel symptoms tra nue; past steroid injection provided only temporary relief, and the patient seeks non-invasive management options. - Reports historical inconsistency in ta cammy prescribed medications, including thyroid medications, linked to periods of depressive symptoms. - No exacerbation in asthma symptoms, cu rrently managed with albuterol inhaler as needed. Patient is seeing document specialist [facility] She also have a sleep apnea, she has appointment coming up - anxiety stable patient is on Lexapro 1 0 mg daily - allergies stable with Flonase nasal sp ray - continue levothyroxine 88 mcg for now - GERD is stable with omeprazole 20 mg - stress incontinence stable with oxybut ynin 10 mg daily - allergies stable continue montelukast 10 mg daily which also helps with asthma Problem List - Hypothyroidism - Depression - Allergies - Gastroesophageal Reflux Disease (GERD) - Urinary Incontinence - Asthma - Eye irritation (secondary to suspected contact with thorn) - Carpal Tunnel Syndrome - sleep apnea, management through Dr. Alphonse dozier Patient Instructions - Apply prescribed eye cream to the affe cted eye before sleeping every night, avoiding direct contact with the eyes. - Ensure consistent consumption of thyro id medication daily. - Arrange for completion of blood tests for thyroid function immediately. - Schedule and attend follow-up appointm ents, including hand specialist consultation for carpal tunnel assessment. - Notify healthcare provider if symptoms worsen or new symptoms arise. Review of Systems - General: No fever no chills - Neurological: No headaches no dizziness - Ear nose throat: No sore throat no hearing difficulty no ear pain - Cardiovascular: No syncope, no chest pain, no palpitations - Gastrointestinal: No nausea vomiting or diarrhea - Endocrine: No polyuria polydipsia no heat intolerance - Genitourinary: No dysuria , no blood in urine Physical Exam General: No acute distress HEENT: Redness lateral sided skin of left eye, no pain, no discharge, no vision problem, EBER, EOMI Neck: Supple Respiratory system: Able to talk in full sentences, no audible wheeze cardiovascular: S1-S2 regular in rate and rhythm Gastrointestinal: No pain Extremities: No new findings, reports of carpal tunnel symptoms in both hands CHEMICAL PRODUCTION ENGINEER: Alert awake oriented x3 motor sensory intact Skin: Normal turgor [facility] Medical History (Updated 02/14/25 @ 14:55 by David Diaz MD) Transaminitis Tubular adenoma Diverticulosis GERD (gastroesophageal reflux disease) Anxiety and depression Asthma History of panic attacks TIARRA on CPAP Fatty liver IBS (irritable bowel syndrome) Restrictive lung disease Allergic rhinitis Hypothyroidism Overactive bladder Surgical History History of surgery on arm Hx of colonoscopy H/O esophagogastroduodenoscopy History of tubal ligation Hx of cholecystectomy History of elbow surgery Family History Mother Brain aneurysm Maternal Aunt Lung cancer Maternal Uncle Cancer Father Cancer of prostate Colon cancer Other Mental health disorder Social History Housing: Apartment Are you a primary home health care provider to a significant other at home: No Alcohol intake: never Patient Tobacco Use Status: Former Tobacco user Tobacco use type: Cigarette Cigarettes Per Day: 7 Years Smoked: 40 e-Cigarette/Vaping Use: Never Used service: No Current occupational status: employed 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 1. Little interest or pleasure in doing things: not at all 2. Feeling down, depressed, or hopeless: not at all 3. Trouble falling or staying asleep, or sleeping too much: several days 4. Feeling tired or having little energy: not at all 5. Poor appetite or overeating: not at all 6. Feeling bad about yourself - or that you are a failure or have let yourself or your family down: not at all 7. Trouble concentrating on things, such as reading the newspaper or watching television: not at all 8. Moving or speaking so slowly that other people could have noticed. Or the opposite - being so fidgety or restless that you have been moving around a lot more than usual: not at all 9. Thoughts that you would be better off or of hurting yourself in some way: not at all Total score: 1 Depression Screening Interpretation: Negative Depression Screening Done: Yes 59759 - PHQ-9 Billing: Yes Source: Developed by Drs. Miguel Reyes, Ahsly Wong, Darvin Brownlee and colleagues, with an educational darlin from [employer]. Thrive Questionnaire Date Thrive assessed: 02/14/25 I am a: Patient What is your living situation today?: I have a steady place to live Within the past 12 months, did the food you bought not last and you didn't have the money to get more?: Never true Within the past 12 months, did you worry whether your food would run out before you got money to buy more?: Never true Do you have trouble paying for medicines?: No Do you have trouble getting transportation to medical appointments?: No Do you have trouble paying your heating and electricity bill?: No Do you have trouble taking care of your child, family member or friend?: No Do you have trouble with day-to-day activities such as bathing, preparing meals, shopping, managing finances, etc.?: No Are you currently unemployed and looking for a job?: No Are you interested in more education?: No Please select the resources that you would like help with: None Currently or been in a relationship where the following occur: No concerns reported THRIVE Score: 0 AUDIT C Alcohol Use Questionnaire (AUDIT-C) 1. How often do you have a drink containing alcohol?: Never 3. How often do you have six or more drinks on one occasion?: Never Total Score: 0 Score Reviewed/Action Taken: Yes AGATA-7 AMB Questionnaire AGATA-7 Date AGATA - 7 assessed: 02/14/25 Feeling nervous, anxious, or on edge: 1 = Several days Not being able to stop or control worryin = Not at all Worrying too much about different things: 0 = Not at all Trouble relaxin = Not at all Being so restless that it is hard to sit still: 0 = Not at all Becoming easily annoyed or irritable: 0 = Not at all Feeling afraid as if something awful might happen: 0 = Not at all Total AGATA-7 score (0-4 normal; 5-9 mild; 10-14 moderate; 15-21 severe): 1 Source: Developed by Drs. Miguel Reyes, Ashly Wong, Darvin Brownlee and colleagues, with an educational darlin from [employer]. AGATA-7 Assessment Billing AGATA-7 Assessment Tool: AGATA-7 Assessment 68402 Physical exam (Primary Care) Vital Signs: Last Vital Signs Temp 98 F 02/14/25 14:10 Pulse 73 02/14/25 14:10 BP 126/80 02/14/25 14:10 Pulse Ox 95 02/14/25 14:10 Oxygen Delivery Method Room Air 02/14/25 14:10 BMI result Body Mass Index 34.5 Tobacco/Smoking Status: Tobacco use Status Tobacco use date assessed 02/14/25 02/14/25 14:15 Patient Tobacco Use Status Former Tobacco user 02/14/25 14:09 Tobacco use type Cigarette 02/14/25 14:09 e-Cigarette/Vaping Use Never Used 02/14/25 14:09 PHQ-9: PHQ-9 Score PHQ-9: Total score 1 02/14/25 14:15 Depression Screening Interpretation: Negative Thrive Assessment: Date of Thrive Assessment Date Thrive assessed 02/14/25 02/14/25 14:15 Currently or been in a relationship where the following occur: No concerns reported Coding Level of Care Code Est Pt Level 4 (76595) Complex EM visit Add On G2211 Diagnoses Facial rash R21 Other specified hypothyroidism E03.8 Carpal tunnel syndrome, bilateral G56.03 Recurrent major depressive disorder, in partial remission F33.41 Active/Remission status: in partial remission Allergic rhinitis, unspecified seasonality, unspecified trigger J30.9 Allergic rhinitis trigger: unspecified Allergic rhinitis seasonality: unspecified Anxiety, generalized F41.1 Overactive bladder N32.81 Environmental allergies Z91.09 Gastroesophageal reflux disease, unspecified whether esophagitis present K21.9 Esophagitis presence: esophagitis presence not specified TIARRA on CPAP G47.33; Z99.89 Additional Codes AGATA-7 Assessment Billing - AGATA-7 Assessment Tool: AGATA-7 Assessment 97797 ([id number]) PHQ-9 - 26041 - PHQ-9 Billing: Yes ([id number]) Assessment & Plan Assessment & Plan (1) Facial rash: Code(s): R21 - Rash and other nonspecific skin eruption Category: Medical (2) Other specified hypothyroidism: Code(s): E03.8 - Other specified hypothyroidism Category: Medical (3) Carpal tunnel syndrome, bilateral: Code(s): G56.03 - Carpal tunnel syndrome, bilateral upper limbs Category: Medical (4) Major depression, recurrent: Code(s): F33.9 - Major depressive disorder, recurrent, unspecified Category: Medical Qualifiers: Active/Remission status: in partial remission Qualified Code(s): F33.41 - Major depressive disorder, recurrent, in partial remission (5) Allergic rhinitis: Code(s): J30.9 - Allergic rhinitis, unspecified Category: Medical Qualifiers: Allergic rhinitis trigger: unspecified Allergic rhinitis seasonality: unspecified Qualified Code(s): J30.9 - Allergic rhinitis, unspecified (6) Anxiety, generalized: Code(s): F41.1 - Generalized anxiety disorder Category: Medical (7) Overactive bladder: Code(s): N32.81 - Overactive bladder Category: Medical (8) Environmental allergies: Code(s): Z91.09 - Other allergy status, other than to drugs and biological substances Category: Medical (9) GERD (gastroesophageal reflux disease): Code(s): K21.9 - Gastro-esophageal reflux disease without esophagitis Category: Medical Qualifiers: Esophagitis presence: esophagitis presence not specified Qualified Code(s): K21.9 - Gastro-esophageal reflux disease without esophagitis (10) TIARRA on CPAP: Code(s): G47.33 - Obstructive sleep apnea (adult) (pediatric); Z99.89 - Dependence on other enabling machines and devices Category: Medical Plan History - The patient is a 59-year-old female presenting with left sided skin irritation around eye and follow-up on thyroid function. - irritation began possibly due to contact with a [employer] waters, initially causing itching and redness around left eye, with persistent redness and puffiness without vision issues. However there is no pain or itching anymore but rash is still present - Follow-up is required for previously adjusted thyroid medication with a past off result in October; labs were missed, needing current completion . - Bilateral carpal tunnel symptoms continue; past steroid injection provided only temporary relief, and the patient seeks non-invasive management options. - Reports historical inconsistency in taking prescribed medications, including thyroid medications, linked to periods of depressive symptoms. Patient was encouraged to take medication regularly - No exacerbation in asthma symptoms, currently managed with albuterol inhaler as needed. Patient is seeing document specialist [facility] She also have a sleep apnea, she has appointment coming up - anxiety stable patient is on Lexapro 10 mg daily - allergies stable with Flonase nasal spray - continue levothyroxine 88 mcg for now - GERD is stable with omeprazole 20 mg - stress incontinence stable with oxybutynin 10 mg daily - allergies stable continue montelukast 10 mg daily which also helps with asthma Problem List - Hypothyroidism continue levothyroxine 88 mcg Labs are needed today - Depression stable continue Lexapro - Allergies stable - Gastroesophageal Reflux Disease (GERD) - Urinary Incontinence stable - Asthma stable - Eye irritation (secondary to suspected contact with waters) - Carpal Tunnel Syndrome bilateral [ injection tried in the past helped t emporarily patient do not want surgery but agreed to see specialist] - sleep apnea, management through Dr. Montejo, appointment is coming up next week Patient Instructions - Apply prescribed eye cream to the affected eye before sleeping every night, avoiding direct contact with the eyes. - Ensure consistent consumption of thyroid medication daily. - Arrange for completion of blood tests for thyroid function immediately. - Schedule and attend follow-up appointments, including hand specialist consultation for carpal tunnel assessment. - Notify healthcare provider if symptoms worsen or new symptoms arise. Patient was given time to ask questions Follow-up 4 Orders: Orders TSH reflex Free T4 Today E03.8 - Other specified hypothyroidism Referrals Hand Surgery Referral G56.03 - Carpal tunnel syndrome, bilateral upper limbs Medications: New hydrocortisone 2.5% 1 appl topical .qhs 30 days PRN 30 grams 0RF skin irritation left eye
[2025-02-14 14:10] VITALS: BP 126/80; PULSE 73; TEMP 36.6; O2SAT 95; BMI 34.5
--- OUTSIDE RECORDS SUMMARY | 2025-02-14 16:43 | XMS_ITS | Clinical Summary ---
Author Organization [employer] [facility] Address [address] [place] [address] Care Team Providers Care Shop Girl Name Role Phone Name, Rhett GARZA Primary Care Provider [phone] Surgical History Surgery Date Site/Laterality Comments OTHER [...] age to complete this topic Care Teams Shop Girl Relationship Specialty Start Date End Date Name, MD Rhett [address] [place] [address] PCP - General 07/31/1991
== END 2025-02-14 14:38 | disposition home or self-care (01) ==
LOC: HO.HMCC 13:58
PROVIDERS: PCP Internal Medicine; Visit Provider Internal Medicine
DX: R21 Rash and other nonspecific skin eruption (principal); E03.8 Other specified hypothyroidism; G56.03 Carpal tunnel syndrome, bilateral upper limbs; F33.41 Major depressive disorder, recurrent, in partial remission; J30.9 Allergic rhinitis, unspecified; F41.1 Generalized anxiety disorder; N32.81 Overactive bladder; Z91.09 Other allergy status, other than to drugs and biological substances; K21.9 Gastro-esophageal reflux disease without esophagitis; G47.33 Obstructive sleep apnea (adult) (pediatric); Z99.89 Dependence on other enabling machines and devices

== ENCOUNTER 2025-03-16 14:20 | Outpatient (REF) | payer MEDICARE, MEDICAID, SELFPAY ==
--- NOTE | 2025-03-16 14:23 | EMG_ITS ---
Chief complaint: Chronic bilateral hand numbness, diagnosed by EMG many years ago, no surgery Reason for referral: Evaluate for Carpal Tunnel Syndrome Referred by: Maksim KERNS Procedure done: Bilateral upper extremities NCS Precautions and/or limitations: None The limb temperature was monitored continuously and remained between 32-36 degrees C during the performance of the NCS. Nerve Conduction Studies Anti Sensory Summary Table ?Stim Site NR Onset (ms) Norm Onset (ms) Peak (ms) Norm Peak (ms) O-P Amp (?V) Norm O-P Amp Site1 Site2 Delta-0 (ms) Dist (cm) Kulwant (m/s) Norm Kulwant (m/s) Left Median Anti Sensory (2nd Digit) Wrist ? 4.8 5.9 <3.6 5.2 >10 Wrist 2nd Digit 4.8 14.0 29 Right Median Anti Sensory (2nd Digit) Wrist ? 4.0 5.1 <3.6 5.9 >10 Wrist 2nd Digit 4.0 14.0 35 Right Radial Anti Sensory (Thumb) Forearm ? 1.3 1.9 <3.1 16.8 Forearm Thumb 1.3 0.0 Left Ulnar Anti Sensory (5th Digit) Wrist ? 2.3 2.9 <3.7 30.4 >15.0 Wrist 5th Digit 2.3 14.0 61 Right Ulnar Anti Sensory (5th Digit) Wrist ? 2.1 2.8 <3.7 37.9 >15.0 Wrist 5th Digit 2.1 14.0 67 Motor Summary Table ?Stim Site NR Onset (ms) Norm Onset (ms) O-P Amp (mV) Norm O-P Amp iAmp (mV) Amp (1st) (%) Site1 Site2 Delta-0 (ms) Dist (cm) Kulwant (m/s) Norm Kulwant (m/s) Left Median Motor (Abd Poll Brev) Wrist ? 6.2 <3.9 8.4 >4.5 9.8 100.0 Elbow Wrist 3.0 16.5 55 >45 Elbow ? 9.2 8.2 9.6 97.6 Right Median Motor (Abd Poll Brev) Wrist ? 5.3 <3.9 9.8 >4.5 11.4 100.0 Elbow Wrist 3.1 18.5 60 >45 Elbow ? 8.4 9.1 10.9 92.9 Left Ulnar Motor (Abd Dig Minimi) Wrist ? 2.5 <3.0 10.7 >5 12.9 100.0 B Elbow Wrist 2.7 16.5 61 >45 B Elbow ? 5.2 11.8 14.5 110.3 A Elbow B Elbow 1.3 10.0 77 >45 A Elbow ? 6.5 10.6 12.9 99.1 Right Ulnar Motor (Abd Dig Minimi) Wrist ? 2.5 <3.0 9.3 >5 12.5 100.0 B Elbow Wrist 2.8 17.0 61 >45 B Elbow ? 5.3 9.8 13.2 105.4 A Elbow B Elbow 1.2 10.0 83 >45 A Elbow ? 6.5 10.5 13.9 112.9 FINDINGS: Left median motor nerve showed prolonged distal latency, normal amplitude and normal conduction velocity. Bilateral median sensory nerves showed increased peak latencies and small amplitudes. All other nerves tested were within normal. IMPRESSION: 1. This is an abnormal nerve conduction study. 2. 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 3. There is no electrodiagnostic evidence for ulnar neuropathy. Thank you for your kind referral. Hyacinth Au MD, JEAN Board Certified, [place] [employer] and Rehabilitation (ABPMR) Board Certified, [place] Board of Electrodiagnostic Medicine (ABEM) CODIN MTDD
--- OUTSIDE RECORDS SUMMARY | 2025-03-16 17:20 | XMS_ITS | Clinical Summary ---
Author Organization [employer] [facility] Address [address] [place] [address] Care Team Providers Care Foster Care Worker Name Role Phone Name, Rhett GARZA Primary Care Provider [phone] Surgical History Surgery Date Site/Laterality Comments OTHER SURGICAL HISTORY PROCEDURE: [place] LAPAROSCOPY SALPINGOSTOMY; COMMENT: one ovary remains OTHER [...] of 2) 2017 COVID-19 Vaccine (1 - 2023- season) 2024 Influenza Vaccine (Season Ended) 2025 08/05/2012, 08/07/2011, 08/27/2010, Additional history exists MMR Vaccines [...] age to complete this topic Meningococcal B Vaccine Aged Out No l onger eligible based on patient's age to complete [...] age to complete this topic Care Teams Foster Care Worker Relationship Specialty Start Date End Date Name, MD Rhett [address] [place], [place] PCP - General 07/31/1991
== END 2025-03-16 14:21 | disposition home or self-care (01) ==
LOC: HO.NEURO 14:20
PROVIDERS: PCP Internal Medicine
DX: G56.13 Other lesions of median nerve, bilateral upper limbs (principal)
CPT/HCPCS: 95860; 95911

== ENCOUNTER → 2025-03-16 14:23 | Outpatient (BNV) | payer MEDICARE, MEDICAID, SELFPAY | PROVIDERS: PCP Internal Medicine; Visit Provider Physical Medicine & Rehabilitation | DX: G56.03 Carpal tunnel syndrome, bilateral upper limbs (principal) | CPT/HCPCS: 95911 ==

== ENCOUNTER 2025-04-10 15:47 | Outpatient (AMB) | payer MEDICARE, MEDICAID, SELFPAY ==
[2025-04-10 15:50] VITALS: BP 112/70; PULSE 80; O2SAT 93; BMI 34.5
--- NOTE | 2025-04-10 15:50 | MHC.OFFVIS ---
Vital Signs 04/10/25 15:50 Height 5 ft 2 in Weight 188 lb 7.924 oz BMI 34.5 BP 112/70 Blood Pressure Location Lt brachial Position Sitting Pulse 80 Pulse Source Pulse Oximeter Pulse Oximetry (%) 93 Oxygen Delivery Method Room Air Intake Visit Reasons: asthma Intake Note: pt is here for follow up and states she is using cpap is going well, breathing is okay Vendor Analyst Required: No Allergies paroxetine [From PAXIL] Allergy (Severe, Verified 04/10/25 16:06) BAD REACTION - HALLUCINATING varenicline [From CHANTIX] Allergy (Severe, Verified 04/10/25 16:06) BAD REACTION - HALLUCINATING, redness and itching Medication List - Last Reconciled 04/10/25 by Samuel Montejo MD albuterol sulfate 90 mcg/actuation 2 puffs inhalation Q6H PRN cholecalciferol (vitamin D3) 25 mcg PO DAILY 90 days escitalopram oxalate 10 mg PO DAILY fluticasone propionate 50 mcg/actuation (Flonase Allergy Relief) 1 spray intranasal DAILY hydrocortisone 2.5% 1 appl topical .qhs PRN 30 days levothyroxine 88 mcg PO QAM 90 days montelukast 10 mg PO DAILY 90 days omeprazole 20 mg PO DAILY oxybutynin chloride ER 10 mg PO DAILY 90 days Do you need a note to return to daycare/school/sports/work: No HPI HPI asthma: Details: 59 YEARS OLD FEMALE COMES AFTER 6 MONTHS FOR FOLLOW-UP. BRONCHIAL ASTHMA HAS BEEN QUIET AND SHE HAS NOT NEEDED TO USE THE RESCUE INHALER FOR QUITE SOMETIME. SHE DOES HAVE MILD NASAL CONGESTION WHICH IS CONTROLLED WITH USE OF FLUTICASONE AND SHE CONTINUES TO TAKE MONTELUKAST 10 MG DAILY. USES CPAP VERY REGULARLY EXCEPT ON SOME NIGHTS SHE FALLS ASLEEP ON THE COUCH AND FORGETS TO PUT IT ON. SHE USES UP TO 8 OR 9 HOURS PER NIGHT AND HAS GOOD SLEEP. COUNTS INCLUDE 234 BEDS AT THE [facility] Medical History Transaminitis Tubular adenoma Diverticulosis GERD (gastroesophageal reflux disease) Anxiety and depression Asthma History of panic attacks TIARRA on CPAP Fatty liver IBS (irritable bowel syndrome) Restrictive lung disease Allergic rhinitis Hypothyroidism Overactive bladder Surgical History History of surgery on arm Hx of colonoscopy H/O esophagogastroduodenoscopy History of tubal ligation Hx of cholecystectomy History of elbow surgery Family History Mother Brain aneurysm Maternal Aunt Lung cancer Maternal Uncle Cancer Father Cancer of prostate Colon cancer Other Mental health disorder Social History Housing: Apartment Are you a primary administrator health care facility to a significant other at home: No Alcohol intake: never Patient Tobacco Use Status: Former Tobacco user Tobacco use type: Cigarette Cigarettes Per Day: 7 Years Smoked: 40 e-Cigarette/Vaping Use: Never Used service: No Current occupational status: employed 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 Cognitive needs: No Hearing needs: No Vision needs: Yes Female Reproductive History Menstrual Age of Menarche: 16 Review of Systems Const All systems reviewed & are unremarkable except as noted in HPI and below Eyes Reports no additional complaints ENT Reports nasal congestion (OFF AND ON, WORSE AT THE TIME OF CHANGING WEATHER SAYS) Card Reports no additional complaints Resp Reports as per HPI GI Reports no additional complaints Reports urinary incontinence (OVERACTIVE BLADDER) Musc Reports no additional complaints Skin/Breast Reports system reviewed and no additional complaints, except as documented Neuro Reports no additional complaints Psych Reports depression (BEING TREATED WITH MED) Physical Exam Vital Signs: Last Vital Signs Pulse 80 04/10/25 15:50 BP 112/70 04/10/25 15:50 Pulse Ox 93 04/10/25 15:50 Oxygen Delivery Method Room Air 04/10/25 15:50 BMI result Body Mass Index 34.5 Const General: comfortable, no acute distress, alert and awake Orientation/consciousness: patient oriented x3 HEENT Head: Yes normal to inspection General nose exam: No nasal polyps present, No nasal discharge present and Other nasal findings present (Mild nasal congestion) Face and sinus: Yes sinuses nontender Mouth: oropharynx normal Throat: Yes posterior oropharynx normal Eyes General: appearance normal, both eyes and all related structures Neck Neck: Yes normal visual inspection, Yes no lymphadenopathy, Yes trachea midline and Yes no JVD Thyroid: Thyroid normal Chest Chest palpation & inspection: normal inspection of the chest, normal palpation of entire chest wall and no tenderness Resp Other: Percussion note is resonant, she has good breath sounds on both sides, No wheezes rhonchi or crepitations are heard. Cardio Palpation: normal PMI Rate: regular rate Rhythm: regular rhythm Heart sounds: no gallops and no murmurs GI Palpation (GI): Soft to palpation, nontender, No hepatosplenomegaly present and no masses Auscultation: normal bowel sounds Back/Spine/Pelvis Thoracic/Lumbar Spine: thoracic and lumbar spine normal to inspection Skin General skin exam: no rashes or lesions noted Neuro General: patient oriented x3 and no focal motor deficits Cranial nerves: Yes CN's II-XII intact bilaterally Extrem General: Yes normal to inspection, Yes no clubbing, cyanosis or edema and Yes no calf tenderness Psych Appearance: grossly normal and well kempt Speech and movement: Normal speech and movement present Results Reviewed Results Reviewed: COMPLIANCE REPORT FOR THE LAST 30 NIGHTS IS REVIEWED SHE HAS USED 26/30 NIGHTS, 87%. AVERAGE USE IT PER NIGHT 9 HOURS 3 MINUTES. PRESSURE USED MOSTLY 11-12 CM. THERE IS SLIGHT AIR LEAK. RESIDUAL AHI ONLY 1.5 Assessment & Plan Assessment & Plan (1) Asthma, mild: Comment: BRONCHIAL ASTHMA, MILD INTERMITTENT, CONTROLLED AND STABLE AT THIS TIME. Code(s): J45.909 - Unspecified asthma, uncomplicated Category: Medical Plan: KEEP ALBUTEROL HFA ON HAND AND USE 2 PUFFS Q 6 HOURS ONLY P.R.N. ALSO CONTINUE TO USE MONTELUKAST 10 MG DAILY . (2) Sleep apnea with use of continuous positive airway pressure (CPAP): Comment: SHE DOES HAVE SLEEP APNEA FOR QUITE SOME TIME. SHE HAS BEEN USING THE CPAP VERY REGULARLY, AND SLEEPS WELL AT LEAST FOR 7-9 HOURS PER NIGHT. Code(s): G47.30 - Sleep apnea, unspecified Category: Medical Plan: COMMENDED FOR GOOD COMPLIANCE AND ADVISED TO KEEP ON USING THE MASK EVERY NIGHT. (3) Allergic rhinitis: Comment: She has chronic, allergic rhinitis, around the year. It is remaining well controlled with the use of current meds. Code(s): J30.9 - Allergic rhinitis, unspecified Category: Medical Qualifiers: Allergic rhinitis trigger: other Allergic rhinitis seasonality: unspecified Qualified Code(s): J30.89 - Other allergic rhinitis Plan: MONTELUKAST 10 MG DAILY. FLONASE 2 SPRAY IN EACH NOSTRIL DAILY. Coding Level of Care Code Est Pt Level 3 (34926) Diagnoses Asthma, mild J45.909 Sleep apnea with use of continuous positive airway pressure (CPAP) G47.30 Allergic rhinitis due to other allergic trigger, unspecified seasonality J30.89 Allergic rhinitis trigger: other Allergic rhinitis seasonality: unspecified
--- OUTSIDE RECORDS SUMMARY | 2025-04-10 15:50 | XMS_ITS | Clinical Summary ---
Author Organization [employer] [facility] Address [address] [place] [address] Care Team Providers Care Side Splitter Name Role Phone Name, Rhett GARZA Primary Care Provider [phone] Surgical History Surgery Date Site/Laterality Comments OTHER SURGICAL HISTORY PROCEDURE: [place] LAPAROSCOPY SALPINGOSTOMY; COMMENT: one ovary remains OTHER [...] age to complete this topic Care Teams Side Splitter Relationship Specialty Start Date End Date Name, MD Rhett [address] [place], [place] PCP - General 07/31/1991
== END 2025-04-10 16:07 | disposition home or self-care (01) ==
LOC: HO.HPS 15:48
PROVIDERS: PCP Internal Medicine; Visit Provider Internal Medicine
DX: J45.909 Unspecified asthma, uncomplicated (principal); G47.30 Sleep apnea, unspecified; J30.89 Other allergic rhinitis
CPT/HCPCS: 99213

== ENCOUNTER → 2025-04-10 15:47 | Outpatient (BNVA) | payer MEDICARE, MEDICAID, SELFPAY | PROVIDERS: PCP Internal Medicine; Visit Provider Internal Medicine | DX: J45.909 Unspecified asthma, uncomplicated (principal); J30.89 Other allergic rhinitis; G47.30 Sleep apnea, unspecified | CPT/HCPCS: 99212 ==

== ENCOUNTER 2025-04-12 13:44 | Outpatient (AMB) | payer MEDICARE, MEDICAID, SELFPAY ==
--- OUTSIDE RECORDS SUMMARY | 2025-04-12 13:48 | XMS_ITS | Clinical Summary ---
Author Organization [employer] [facility] Address [address] [place] [address] Care Team Providers Care Graphics Artist Name Role Phone Name, Rhett GARZA Primary Care Provider [phone] Surgical History Surgery Date Site/Laterality Comments OTHER SURGICAL HISTORY PROCEDURE: [place] LAPAROSCOPY SALPINGOSTOMY; COMMENT: one ovary remains OTHER [...] age to complete this topic Care Teams Graphics Artist Relationship Specialty Start Date End Date Name, MD Rhett [address] [place], [place] PCP - General 07/31/1991
--- NOTE | 2025-04-12 13:49 | A.OFFVIS_ITS ---
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 Patient reports numbness and tingling that occurs daily, constant, making it difficult to director of corporate responsibility, squeeze, and open and close lids. Denies finger locking. Has not tried braces or OT. Patient thinks she had a right hand steroid injections a long time ago. Denies any prior injuries or surgeries to the right hand. Reports previous left elbow surgery. 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 Patient reports numbness and tingling that occurs daily, constant, making it difficult to director of corporate responsibility, squeeze, and open and close lids. Denies finger locking. Has not tried braces or OT. Patient thinks she had a right hand steroid injections a long time ago. Denies any prior injuries or surgeries to the right hand. Reports previous left elbow surgery. Of note, the patient does get quite tearful during examination, stating ?I am very sensitive?. [facility] Medical History Transaminitis Tubular adenoma Diverticulosis GERD (gastroesophageal reflux disease) Anxiety and depression Asthma History of panic attacks TIARRA on CPAP Fatty liver IBS (irritable bowel syndrome) Restrictive lung disease Allergic rhinitis Hypothyroidism Overactive bladder Surgical History History of surgery on arm Hx of colonoscopy H/O esophagogastroduodenoscopy History of tubal ligation Hx of cholecystectomy History of elbow surgery Family History Mother Brain aneurysm Maternal Aunt Lung cancer Maternal Uncle Cancer Father Cancer of prostate Colon cancer Other Mental health disorder Social History (Updated 04/12/25 @ 13:57 by FARHEEN Dixon) Housing: Apartment Are you a primary health care law specialist to a significant other at home: No Alcohol intake: never Patient Tobacco Use Status: Former Tobacco user Tobacco use type: Cigarette Cigarettes Per Day: 7 Years Smoked: 40 e-Cigarette/Vaping Use: Never Used service: No Current occupational status: employed 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 Good APB muscle firing and good finger cross. Vascular: Capillary refill brisk. ROM: Patient can make a fist and extend all their digits. Skin: No lacerations or abrasions noted. General: No ecchymosis. No erythema or evidence of infection. Results Reviewed Results Reviewed: IMPRESSION: 1. This is an abnormal nerve conduction study. 2. 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 3. There is no electrodiagnostic evidence for ulnar neuropathy. Thank you for your kind referral. Hyacinth Au MD, JEAN Assessment & Plan Assessment & Plan (1) Carpal tunnel syndrome, bilateral: Code(s): G56.03 - Carpal tunnel syndrome, bilateral upper limbs Category: Medical Plan 1. Bilateral carpal tunnel syndrome Worse on the left Symptoms intermittent, daily, worse at night Patient is educated about this condition Patient is educated about the typical recovery course Patient is educated about surgical intervention, but declines, stating that she needs to be at work and ?I like to work? Of note, the patient does inquire about potentially going back on disability because of her hands, but is advised that this is not a service we provide for carpal tunnel syndrome Patient states she would like to hold off on surgery, stating ?I want to have more time to monitor my symptoms? Follow-up as needed when patient decides if she would like to have surgical intervention or not, sooner with any acute concerns Coding Level of Care Code New Pt Level 3 (40700) Complex EM visit Add On G2211 Diagnoses Carpal tunnel syndrome, bilateral G56.03
[2025-04-12 13:51] VITALS: BMI 34.4
== END 2025-04-12 14:44 | disposition home or self-care (01) ==
LOC: HO.HOS 13:45
PROVIDERS: PCP Internal Medicine
DX: G56.03 Carpal tunnel syndrome, bilateral upper limbs (principal)
CPT/HCPCS: 99203; G2211

== ENCOUNTER → 2025-04-12 13:44 | Outpatient (BNVA) | payer MEDICARE, MEDICAID, SELFPAY | PROVIDERS: PCP Internal Medicine | DX: G56.03 Carpal tunnel syndrome, bilateral upper limbs (principal) | CPT/HCPCS: 99202 ==

== ENCOUNTER 2025-05-04 15:30 | Outpatient (REF) | payer MEDICARE, MEDICAID, SELFPAY ==
[2025-05-05 05:13] LABS: Syphilis Screen Nonreactive (Nonreactive)
[2025-05-05 05:44] LABS: HBc Num1 0.07 S/CO (0.00-0.79); HIV AB/AG Nonreactive (Nonreactive); HIV Num 1 0.07 S/CO (0.00-0.99); Hepatitis B Core Antibody Nonreactive (Nonreactive); ~HepC Num1 0.12 S/CO (0.00-0.79); ~Hepatitis C Antibody Nonreactive (Nonreactive)
== END 2025-05-04 15:31 | disposition home or self-care (01) ==
LOC: HO.LAB 15:30
PROVIDERS: PCP Internal Medicine; Visit Provider Advanced Practice Midwife
DX: Z13.89 Encounter for screening for other disorder (principal)
CPT/HCPCS: 36415; 86704; 86780; 86803; 87389

== ENCOUNTER 2025-05-04 15:30 | Outpatient (AMB) | payer MEDICARE, MEDICAID, SELFPAY ==
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
[2025-05-04 15:36] VITALS: BP 128/74; BMI 33.7
--- OUTSIDE RECORDS SUMMARY | 2025-05-04 17:58 | XMS_ITS | Clinical Summary ---
Author Organization [employer] [facility] Address [address] [place] [address] Care Team Providers Care Plate Corrector Name Role Phone Name, Rhett GARZA Primary Care Provider [phone] Surgical History Surgery Date Site/Laterality Comments OTHER SURGICAL HISTORY PROCEDURE: [place] LAPAROSCOPY SALPINGOSTOMY; COMMENT: one ovary remains OTHER [...] age to complete this topic Care Teams Plate Corrector Relationship Specialty Start Date End Date Name, MD Rhett [address] [place], [place] PCP - General [birth year]/31/1991
== END 2025-05-04 16:02 | disposition home or self-care (01) ==
LOC: HO.HWS 15:30
PROVIDERS: PCP Internal Medicine; Visit Provider Advanced Practice Midwife
DX: Z01.419 Encounter for gynecological examination (general) (routine) without abnormal findings (principal); Z20.2 Contact with and (suspected) exposure to infections with a predominantly sexual mode of transmission
CPT/HCPCS: G0101

== ENCOUNTER 2025-05-04 15:55 | Outpatient (REF) | payer MEDICARE, MEDICAID, SELFPAY ==
[2025-05-04 20:13] LABS: Bacterial Vaginosis PCR POSITIVE (Negative); Candida Group PCR NOT DETECTED (Not Detect); Candida glab krusei PCR NOT DETECTED (Not Detect); Trichomonas vaginalis PCR NOT DETECTED (Not Detect)
[2025-05-04 20:46] LABS: CT PCR NOT DETECTED (Not Detect.); NG PCR NOT DETECTED (Not Detect.)
== END 2025-05-04 15:56 | disposition home or self-care (01) ==
LOC: HO.LNP 15:55
PROVIDERS: Visit Provider Advanced Practice Midwife
DX: Z01.419 Encounter for gynecological examination (general) (routine) without abnormal findings (principal); Z20.2 Contact with and (suspected) exposure to infections with a predominantly sexual mode of transmission
CPT/HCPCS: 36415; 81515; 86704; 86780; 86803; 87389; 87491; 87591; G0101

== ENCOUNTER 2025-06-16 15:05 | Outpatient (AMB) | payer MEDICARE, MEDICAID, SELFPAY ==
--- OUTSIDE RECORDS SUMMARY | 2025-06-16 15:08 | XMS_ITS | Clinical Summary ---
Author Organization [facility] Address [address] [place] [address] Care Team Providers Care Grounds Restoration Specialist Name Role Phone Name, Rhett GARZA Primary Care Provider [phone] Surgical History Surgery Date Site/Laterality Comments OTHER SURGICAL HISTORY PROCEDURE: [place] LAPAROSCOPY SALPINGOSTOMY; COMMENT: one ovary remains OTHER [...] - 2023-25 season) 2024 Influenza Vaccine (#1) 2025 2, 08/07/2011, 08/27/2010, Additional history exists MMR [...] age to complete this topic Care Teams Grounds Restoration Specialist Relationship Specialty Start Date End Date Name, MD Rhett [address] [place], [place] PCP - General 07/31[birth year]1991
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
[2025-06-16 15:13] VITALS: BP 120/78; PULSE 80; O2SAT 97; BMI 33.8
== END 2025-06-16 15:31 | disposition home or self-care (01) ==
LOC: HO.HMCC 15:06
PROVIDERS: PCP Internal Medicine; Visit Provider Internal Medicine
DX: F33.41 Major depressive disorder, recurrent, in partial remission (principal); F41.1 Generalized anxiety disorder; E03.8 Other specified hypothyroidism; Z91.09 Other allergy status, other than to drugs and biological substances; K21.9 Gastro-esophageal reflux disease without esophagitis; N32.81 Overactive bladder

== ENCOUNTER → 2025-06-16 15:05 | Outpatient (BNVA) | payer MEDICARE, MEDICAID, SELFPAY | PROVIDERS: PCP Internal Medicine; Visit Provider Internal Medicine | DX: F33.41 Major depressive disorder, recurrent, in partial remission (principal); F41.1 Generalized anxiety disorder; E03.8 Other specified hypothyroidism; Z91.09 Other allergy status, other than to drugs and biological substances; K21.9 Gastro-esophageal reflux disease without esophagitis; N32.81 Overactive bladder | CPT/HCPCS: 99212 ==

== ENCOUNTER 2025-06-21 11:27 | Outpatient (AMB) | payer MEDICARE, MEDICAID, SELFPAY ==
[2025-06-21 11:42] VITALS: BP 122/74; BMI 34.9
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
--- OUTSIDE RECORDS SUMMARY | 2025-06-21 12:25 | XMS_ITS | Clinical Summary ---
Author Organization [employer] [facility] Address [address] [place] [address] Care Team Providers Care Skip Pit Worker Name Role Phone Name, Rhett GARZA Primary Care Provider [phone] Surgical History Surgery Date Site/Laterality Comments OTHER SURGICAL HISTORY PROCEDURE: [place] LAPAROSCOPY SALPINGOSTOMY; COMMENT: one ovary remains OTHER [...] COVID-19 Vaccine (1 - 2023-25 season) 2024 Depression Screening 11/30/2024 Influenza Vaccine (#1) 2025 2, 08/07/2011, 08/27/2010, [...] age to complete this topic Care Teams Skip Pit Worker Relationship Specialty Start Date End Date Name, MD Rhett [address], [place] PCP - General 07/31/1991
== END 2025-06-21 13:45 | disposition home or self-care (01) ==
LOC: HO.HWS 11:28
PROVIDERS: PCP Internal Medicine; Visit Provider Advanced Practice Midwife
DX: Z20.2 Contact with and (suspected) exposure to infections with a predominantly sexual mode of transmission (principal); N95.0 Postmenopausal bleeding; R39.89 Other symptoms and signs involving the genitourinary system; R10.2 Pelvic and perineal pain
CPT/HCPCS: 99213

== ENCOUNTER 2025-06-21 11:27 | Outpatient (REF) | payer MEDICARE, MEDICAID, SELFPAY ==
[2025-06-21 13:03] LABS: MANUAL DIFF FLAG NO
[2025-06-21 13:31] LABS: Hematocrit 40.5 % (37.0-47.0); Hemoglobin 13.3 g/dl (12.0-16.0); Imm Gran Abs Auto 0.03 X10*3/uL (0.00-0.03); Imm Gran Pct Auto 0.4 % (0.0-0.4); Lymphocytes Absolute Auto 3.1 X10*3/uL (1.2-4.9); Mean Corpuscular HGB Conc 32.8 g/dl (31.0-35.0); Mean Corpuscular Hemoglobin 27.7 pg (27.0-33.0); Mean Corpuscular Volume 84.2 fL (80.0-98.0); NRBC Abs Auto 0.000 X10*3/uL (0.0-0.012); NRBC Pct Auto 0.0 /100WBC (0.0-0.2); Platelet Count 225 X10*3/uL (160-400); Red Blood Count 4.81 X10*6/uL (4.20-5.50); White Blood Count 8.6 X10*3/uL (4.8-10.8)
[2025-06-21 14:22] LABS: Alanine Aminotransferase 36 U/L (0-31); Albumin Level 4.3 g/dL (3.5-5.0); Alkaline Phosphatase 66 U/L (39-117); Anion Gap 12 (12-20); Aspartate Amino Transferase 27 U/L (5-31); Blood Urea Nitrogen 19 mg/dL (9-16); Calcium 9.3 mg/dL (8.4-10.2); Carbon Dioxide 25 mmol/L (22-29); Chloride 109 mmol/L (96-108); Estimated Glomerular Filt Rate > 60; Potassium 4.0 mmol/L (3.3-5.1); Sodium 142 mmol/L (135-145); Total Protein 7.3 g/dL (6.5-8.0)
== END 2025-06-21 11:28 | disposition home or self-care (01) ==
LOC: HO.LAB 11:27
PROVIDERS: Absent Provider Internal Medicine; PCP Internal Medicine; Referring Provider Nurse Practitioner Family; Visit Provider Advanced Practice Midwife
DX: N95.0 Postmenopausal bleeding (principal); R10.2 Pelvic and perineal pain; Z11.8 Encounter for screening for other infectious and parasitic diseases; Z20.2 Contact with and (suspected) exposure to infections with a predominantly sexual mode of transmission; F33.41 Major depressive disorder, recurrent, in partial remission; F41.1 Generalized anxiety disorder; E03.8 Other specified hypothyroidism; K21.9 Gastro-esophageal reflux disease without esophagitis; N32.81 Overactive bladder; R74.01 Elevation of levels of liver transaminase levels; R31.29 Other microscopic hematuria; Z91.09 Other allergy status, other than to drugs and biological substances; Z98.51 Tubal ligation status; Z79.899 Other long term (current) drug therapy
CPT/HCPCS: 36415; 80053; 81003; 82248; 83721; 84443; 85025; 99212

== ENCOUNTER 2025-06-21 12:20 | Outpatient (REF) | payer MEDICARE, MEDICAID, SELFPAY ==
[2025-06-21 20:16] LABS: Bacterial Vaginosis PCR NEGATIVE (Negative); Candida Group PCR NOT DETECTED (Not Detect); Candida glab krusei PCR NOT DETECTED (Not Detect); Trichomonas vaginalis PCR DETECTED (Not Detect)
[2025-06-21 21:05] LABS: CT PCR NOT DETECTED (Not Detect.); NG PCR NOT DETECTED (Not Detect.)
== END 2025-06-21 12:21 | disposition home or self-care (01) ==
LOC: HO.LNP 12:20
PROVIDERS: Visit Provider Advanced Practice Midwife
DX: R10.2 Pelvic and perineal pain (principal); F33.41 Major depressive disorder, recurrent, in partial remission; F41.1 Generalized anxiety disorder; E03.8 Other specified hypothyroidism; K21.9 Gastro-esophageal reflux disease without esophagitis; N32.81 Overactive bladder; R31.29 Other microscopic hematuria; R74.01 Elevation of levels of liver transaminase levels; Z91.09 Other allergy status, other than to drugs and biological substances
CPT/HCPCS: 81515; 87086; 87491; 87591

== ENCOUNTER 2025-07-13 10:08 | Outpatient (AMB) | payer MEDICARE, MEDICAID, SELFPAY ==
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
--- OUTSIDE RECORDS SUMMARY | 2025-07-13 10:50 | XMS_ITS | Clinical Summary ---
Author Organization [employer] [facility] Address [address] [place] [address] Care Team Providers Care Senior Pharmacy Technician Name Role Phone Name, Rhett GARZA Primary Care Provider [phone] Surgical History Surgery Date Site/Laterality Comments OTHER SURGICAL HISTORY PROCEDURE: [place] LAPAROSCOPY SALPINGOSTOMY; COMMENT: one ovary remains OTHER [...] age to complete this topic Care Teams Senior Pharmacy Technician Relationship Specialty Start Date End Date Name, MD Rhett [address] [place], [place] PCP - General 07/31/1991
== END 2025-07-13 11:01 | disposition home or self-care (01) ==
PROVIDERS: PCP Internal Medicine; Visit Provider Advanced Practice Midwife
DX: Z20.2 Contact with and (suspected) exposure to infections with a predominantly sexual mode of transmission (principal)
CPT/HCPCS: 99213

== ENCOUNTER 2025-07-13 10:08 | Outpatient (REF) | payer MEDICARE, MEDICAID, SELFPAY ==
[2025-07-13 15:33] LABS: Bacterial Vaginosis PCR NEGATIVE (Negative); Candida Group PCR NOT DETECTED (Not Detect); Candida glab krusei PCR NOT DETECTED (Not Detect); Trichomonas vaginalis PCR NOT DETECTED (Not Detect)
== END 2025-07-13 10:09 | disposition home or self-care (01) ==
LOC: HO.LNP 10:08
PROVIDERS: PCP Internal Medicine; Visit Provider Advanced Practice Midwife
DX: Z20.2 Contact with and (suspected) exposure to infections with a predominantly sexual mode of transmission (principal)
CPT/HCPCS: 81515; 99212

== ENCOUNTER 2025-07-27 14:47 | Outpatient (AMB) | payer MEDICARE, MEDICAID, SELFPAY ==
--- OUTSIDE RECORDS SUMMARY | 2025-07-27 15:23 | XMS_ITS | Clinical Summary ---
Author Organization [employer] [facility] Address [address] [place] [address] Care Team Providers Care Umbrella Tipper Name Role Phone Name, Rhett GARZA Primary Care Provider [phone] Surgical History Surgery Date Site/Laterality Comments OTHER SURGICAL HISTORY PROCEDURE: [place] LAPAROSCOPY SALPINGOSTOMY; COMMENT: one ovary remains OTHER [...] age to complete this topic Care Teams Umbrella Tipper Relationship Specialty Start Date End Date Name, MD Rhett [address] [place], [place] PCP - General 07/31/1991
[2025-07-27 15:40] VITALS: BP 132/78; PULSE 86; TEMP 36.8; O2SAT 98; BMI 34.6
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
== END 2025-07-27 16:28 | disposition home or self-care (01) ==
PROVIDERS: PCP Internal Medicine; Visit Provider Nurse Practitioner Family
DX: R07.89 Other chest pain (principal); M54.6 Pain in thoracic spine

== ENCOUNTER 2025-07-27 14:47 | Outpatient (REF) | payer MEDICARE, MEDICAID, SELFPAY ==
--- NOTE | ~2025-07-27 | XR_ITS ---
EXAMINATION: XR CHEST CLINICAL INFORMATION: R07.89 - Other chest pain; patient with right chest wall pain since this a.m. Pain with breathing. COMPARISON: 02/11/2021. TECHNIQUE: 2 views of the chest were obtained. FINDINGS: The cardiac, hilar, and mediastinal contours are normal. The lungs are clear bilaterally. There is no pneumothorax or pleural effusion. There is no focal osseous or soft tissue abnormality. XR/XR chest 2V IMPRESSION: No active pulmonary disease. Electronically signed by: Franko Rodríguez MD 07/27/2025 04:48 PM EDT
== END 2025-07-27 14:48 | disposition home or self-care (01) ==
LOC: HO.HMGCX 14:47
PROVIDERS: PCP Internal Medicine; Visit Provider Nurse Practitioner Family
DX: R07.89 Other chest pain (principal); M54.6 Pain in thoracic spine
CPT/HCPCS: 71046; 99212

== ENCOUNTER → 2025-07-27 16:23 | Outpatient (BNV) | payer MEDICARE, MEDICAID, SELFPAY | PROVIDERS: PCP Internal Medicine; Visit Provider Radiology Diagnostic Radiology | DX: R07.89 Other chest pain (principal) | CPT/HCPCS: 71046 ==

== ENCOUNTER 2025-09-19 15:14 | Outpatient (REF) | payer MEDICARE, MEDICAID, SELFPAY ==
--- NOTE | ~2025-09-19 | US_ITS ---
EXAMINATION: US PELVIS CLINICAL INFORMATION: R10.2 - Pelvic and perineal pain COMPARISON: June 19, 2023 TECHNIQUE: Ultrasound of the pelvis is performed using both transabdominal and transvaginal transducers along with Doppler. Transvaginal imaging is performed due to inadequate visualization transabdominally. FINDINGS: Uterus: The uterus is anteverted and measures 7.7 x 3.2 x 4.5 cm. The double wall endometrial thickness is 5 mm. The uterus is smooth in contour and has normal myometrial echogenicity. No visible fibroid. Adnexa: Right ovary is surgically absent. Left ovary measures 1.4 x 1.7 x 1.0 cm. US/US pelvic and transvaginal IMPRESSION: Right oophorectomy. Otherwise unremarkable pelvic ultrasound. Electronically signed by: Anthony Holden MD 09/19/2025 04:20 PM EDT
--- OUTSIDE RECORDS SUMMARY | 2025-09-19 20:24 | XMS_ITS | Clinical Summary ---
Author Organization [facility] Address [address] [place] [address] Care Team Providers Care Services Host Name Role Phone Name, Rhett GARZA Primary Care Provider [phone] Surgical History Surgery Date Site/Laterality Comments OTHER SURGICAL HISTORY PROCEDURE: [place] LAPAROSCOPY SALPINGOSTOMY; COMMENT: one ovary remains OTHER [...] 2017 Zoster Vaccines (1 of 2) 2017 Depression Screening 11/30/2024 COVID-19 Vaccine (1 - 2023- season) 2025 Influenza Vaccine (#1) 2025 2, 08/07/2011, 08/27/2010, Additional history exists RSV Immunization Adult Patients (1 - 1-dose 75+ series) 2042 MMR Vaccines Aged Out 01/19/2004 No longer [...] age to complete this topic Care Teams Services Host Relationship Specialty Start Date End Date Name, MD Rhe[address] [place], [place] PCP - General 07/31/1991
== END 2025-09-19 15:15 | disposition home or self-care (01) ==
LOC: HO.US 15:14
PROVIDERS: PCP Internal Medicine; Visit Provider Advanced Practice Midwife
DX: R10.20 Pelvic and perineal pain unspecified side (principal)
CPT/HCPCS: 76830; 76856

== ENCOUNTER → 2025-09-19 15:17 | Outpatient (BNV) | payer MEDICARE, MEDICAID, SELFPAY | PROVIDERS: PCP Internal Medicine; Visit Provider Radiology Diagnostic Radiology | DX: R10.20 Pelvic and perineal pain unspecified side (principal); Z90.721 Acquired absence of ovaries, unilateral | CPT/HCPCS: 76830; 76856 ==

== ENCOUNTER 2025-09-20 13:17 | Outpatient (AMB) | payer MEDICARE, MEDICAID, SELFPAY ==
[2025-09-20 13:19] VITALS: BP 120/72; PULSE 82; O2SAT 97; BMI 34.6
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
--- OUTSIDE RECORDS SUMMARY | 2025-09-20 18:43 | XMS_ITS | Clinical Summary ---
Author Organization [facility] Address [address] [place] [address] Care Team Providers Care Materials Planner Name Role Phone Name, Rhett GARZA Primary Care Provider [phone] Surgical History Surgery Date Site/Laterality Comments OTHER SURGICAL HISTORY PROCEDURE: [place] LAPAROSCOPY SALPINGOSTOMY; COMMENT: one ovary remains OTHER [...] age to complete this topic Care Teams Materials Planner Relationship Specialty Start Date End Date Name, MD [address] [place], [place] PCP - General 07/31/1991
== END 2025-09-20 13:53 | disposition home or self-care (01) ==
LOC: HO.HMCC 13:18
PROVIDERS: PCP Internal Medicine; Visit Provider Internal Medicine
DX: G56.03 Carpal tunnel syndrome, bilateral upper limbs (principal); M54.40 Lumbago with sciatica, unspecified side; G89.29 Other chronic pain; R25.2 Cramp and spasm; Z59.9 Problem related to housing and economic circumstances, unspecified; R29.898 Other symptoms and signs involving the musculoskeletal system

== ENCOUNTER → 2025-09-20 13:17 | Outpatient (BNVA) | payer MEDICARE, MEDICAID, SELFPAY | PROVIDERS: PCP Internal Medicine; Visit Provider Internal Medicine | DX: M54.32 Sciatica, left side (principal); M54.31 Sciatica, right side; G56.03 Carpal tunnel syndrome, bilateral upper limbs; G89.29 Other chronic pain; R25.2 Cramp and spasm; Z59.9 Problem related to housing and economic circumstances, unspecified; R29.898 Other symptoms and signs involving the musculoskeletal system | CPT/HCPCS: 99212 ==

== ENCOUNTER 2025-10-03 13:16 | Outpatient (AMB) | payer MEDICARE, MEDICAID, SELFPAY ==
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
== END 2025-10-03 13:43 | disposition home or self-care (01) ==
LOC: HO.HWS 13:16
PROVIDERS: PCP Internal Medicine; Visit Provider Advanced Practice Midwife
DX: N95.0 Postmenopausal bleeding (principal)
CPT/HCPCS: 99213

== ENCOUNTER → 2025-10-03 13:16 | Outpatient (BNVA) | payer MEDICARE, MEDICAID, SELFPAY | PROVIDERS: PCP Internal Medicine; Visit Provider Advanced Practice Midwife | DX: N95.0 Postmenopausal bleeding (principal); J45.909 Unspecified asthma, uncomplicated; G47.30 Sleep apnea, unspecified; J30.2 Other seasonal allergic rhinitis; Z99.89 Dependence on other enabling machines and devices; Z87.891 Personal history of nicotine dependence | CPT/HCPCS: 99212 ==

== ENCOUNTER 2025-10-03 13:52 | Outpatient (AMB) | payer MEDICARE, MEDICAID, SELFPAY ==
[2025-10-03 14:19] VITALS: BP 120/78; PULSE 74; O2SAT 96; BMI 35.7
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
--- OUTSIDE RECORDS SUMMARY | 2025-10-03 16:58 | XMS_ITS | Clinical Summary ---
Author Organization [facility] Address [address] [place] [address] Care Team Providers Care Roll Operator Name Role Phone Name, Rhett GARZA Primary Care Provider [phone] Surgical History Surgery Date Site/Laterality Comments OTHER SURGICAL HISTORY PROCEDURE: [place] LAPAROSCOPY SALPINGOSTOMY; COMMENT: one ovary remains OTHER [...] age to complete this topic Care Teams Roll Operator Relationship Specialty Start Date End Date Name, MD Rhett [address] [place], [place] PCP - General 07/31/1991
== END 2025-10-03 14:37 | disposition home or self-care (01) ==
LOC: HO.HPS 13:53
PROVIDERS: PCP Internal Medicine; Visit Provider Internal Medicine
DX: J45.909 Unspecified asthma, uncomplicated (principal); J30.9 Allergic rhinitis, unspecified; G47.30 Sleep apnea, unspecified
CPT/HCPCS: 99213

== ENCOUNTER 2025-10-10 13:02 | Outpatient (AMB) | payer MEDICARE, MEDICAID, SELFPAY ==
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
[2025-10-10 13:20] VITALS: BP 122/78; BMI 35.7
--- OUTSIDE RECORDS SUMMARY | 2025-10-10 14:47 | XMS_ITS | Clinical Summary ---
Author Organization [facility] Address [address] [place] [address] Care Team Providers Care Property Supervisor Name Role Phone Name, Rhett GARZA Primary Care Provider [phone] Surgical History Surgery Date Site/Laterality Comments OTHER SURGICAL HISTORY PROCEDURE: [place] LAPAROSCOPY SALPINGOSTOMY; COMMENT: one ovary remains OTHER [...] Years Used Date Smoking Tobacco: Former Cigarettes 0 Q uit: 11/30/2010 Smokeless Tobacco: Former Quit: [...] Depression Screening 11/30/2024 COVID-19 Vaccine (1 - 2024- season) 2025 Influenza Vaccine (#1) 2025 2, [...] age to complete this topic Care Teams Property Supervisor Relationship Specialty Start Date End Date Name, MD Rhett [address] [place], [place] PCP - General 07/31/1991
== END 2025-10-10 13:57 | disposition home or self-care (01) ==
LOC: HO.HWS 13:03
PROVIDERS: PCP Internal Medicine; Visit Provider Advanced Practice Midwife
DX: N95.0 Postmenopausal bleeding (principal); Z32.02 Encounter for pregnancy test, result negative
CPT/HCPCS: 58100; 99213

== ENCOUNTER → 2025-10-10 13:02 | Outpatient (BNVA) | payer MEDICARE, MEDICAID, SELFPAY | PROVIDERS: PCP Internal Medicine; Visit Provider Advanced Practice Midwife | DX: N95.0 Postmenopausal bleeding (principal); Z53.8 Procedure and treatment not carried out for other reasons; N88.2 Stricture and stenosis of cervix uteri | CPT/HCPCS: 58100; 81025; 99212 ==

== ENCOUNTER 2025-10-11 15:52 | Outpatient (AMB) | payer MEDICARE, MEDICAID, SELFPAY ==
[2025-10-11 16:01] VITALS: BP 122/78; BMI 35.7
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
--- OUTSIDE RECORDS SUMMARY | 2025-10-11 18:51 | XMS_ITS | Clinical Summary ---
Author Organization [facility] Address [address] [place] [address] Phone Care Team Providers Care Center Director Lead Teacher Name Role Phone Name, Rhett GARZA Primary Care Provider [phone] Surgical History Surgery Date Site/Laterality Comments OTHER SURGICAL HISTORY PROCEDURE: [place] LAPAROSCOPY SALPINGOSTOMY; COMMENT: one ovary remains OTHER [...] Last Done Comments Breast Cancer Screening 1967 Colorectal Cancer Screening: Colonoscopy 1967 Cervical Cancer Screening: Pap Smear 1988 DTaP,Tdap,and Td Vaccines (2 - Td or Tdap) 02/18/2017 02/18/2007 Pneumococcal Vaccine: 50+ Years (1 of 1 - PCV) 2017 Zoster Vaccines (1 of 2) 2017 Depression Screening 11/30/2024 COVID-19 Vaccine (1 - 2024- season) 2025 Influenza Vaccine (#1) 2025 2, 08/07/2011, 08/27/2010, Additional history exists Cholesterol Screening (Lipid Panel) 10/10/2025 HIV Screening 10/10/2025 Hepatitis C Screening 10/10/2025 Medicare Annual Wellness Visit 10/10/2025 Social Influencers of Health Screening 10/10/2025 RSV Immunization Adult Patients (1 - 1-dose [...] on patient's age to complete this topic Insurance MEDICARE MEDICAID - [place] Care Teams Center Director Lead Teacher Relationship Specialty Start Date End Date Name, MD Rhett [address] [place], [place] PCP - General 07/31/1991
== END 2025-10-11 16:23 | disposition home or self-care (01) ==
LOC: HO.HWS 15:53
PROVIDERS: PCP Internal Medicine; Visit Provider Obstetrics & Gynecology
DX: N95.0 Postmenopausal bleeding (principal)
CPT/HCPCS: 99213

== ENCOUNTER → 2025-10-11 15:52 | Outpatient (BNVA) | payer MEDICARE, MEDICAID, SELFPAY | PROVIDERS: PCP Internal Medicine; Visit Provider Obstetrics & Gynecology | DX: N95.0 Postmenopausal bleeding (principal); Z87.891 Personal history of nicotine dependence | CPT/HCPCS: 99212 ==

== ENCOUNTER 2025-11-03 06:29 | Day surgery (SDC) | payer MEDICARE, MEDICAID, SELFPAY ==
--- OUTSIDE RECORDS SUMMARY | 2025-10-12 15:13 | XMS_ITS | Clinical Summary ---
Author Organization [facility] Address [address] [place] [address] Phone Care Team Providers Care Yacht Rigger Name Role Phone Name, Rhett GARZA Primary Care Provider [phone] Surgical History Surgery Date Site/Laterality Comments OTHER [...] Insurance MEDICARE MEDICAID - [place] Care Teams Yacht Rigger Relationship Specialty Start Date End Date Name, MD Rhett [address] [place], [place] PCP - General 07/31/1991
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
[2025-11-01 09:20] VITALS: BMI 35.7
[2025-11-03 06:50] VITALS: BMI 35.1
[2025-11-03 06:53] VITALS: BP 128/83; PULSE 60; RESP 18; TEMP 36.4; O2SAT 93
[2025-11-03] MEDS: Lactated Ringers 1,000 ML 100 ML IVCONT (07:02)
[2025-11-03 07:05] LABS: UPreg QC Valid YES
--- NOTE | 2025-11-03 08:29 | MHC.SHP ---
Pre-Procedural Eval Section A - 24 Hr Update-Section A only Date of Service: 11/03/25 The patient is an INPATIENT: No Changes since office visit: No Cold of Flu in the past 2 weeks, No New Medical Problems, No Changes in Medication and No Patient answered all questions The patient has been examined within 24 hours of the surgical procedure. The History & Physical has been completed within 30 days and I have reviewed it.: Yes Section B - Complete if H&P > 30 days Chief Complaint: Postmenopausal bleeding Allergies: Allergies Allergy/AdvReac Type Severity Reaction Status Date / Time paroxetine (From PAXIL) Allergy Severe BAD Verified 11/03/25 06:49 REACTION - HALLUCINATING varenicline (From CHANTIX) Allergy Severe BAD Verified 11/03/25 06:49 REACTION - HALLUCINATING, redness and itching Plan Diagnosis/Plan: Unchanged I have reviewed the history and physical and performed a pertinent physical examination on my patient. No changes have occurred unless specified. Time Spent With Patient Time: Total time managing care of this patient today ____ minutes.
--- NOTE | 2025-11-03 08:59 | PM.OP ---
Brief Operative Note Date of Service: 11/03/25 Pre-op diagnosis: Postmenopausal bleeding Post-op diagnosis: same (Endometrial polyp) Procedure: Hysteroscopy D&C, Polypectomy Surgeon: Nigel Feldman MD Anesthesia: GLMA Was an Cnc Operator Machinist used for this Procedure?: No Estimated blood loss (mL): 0 Pathology: other (Endometrial Scrapping. Polyp) Condition: stable Disposition: PACU
--- NOTE | 2025-11-03 08:59 | W.PM.OPN ---
Operative Note Operative Note Date of Service: 11/03/25 Narrative: Preop Diagnosis: Postmenopausal bleeding Operation: Diagnostic Hysteroscopy, Dilataion & Curettage and polypectomy Post Op Diagnosis: Endometrial Polyp QBL: Minimal Anesthesia: GLMA Surgeon: Nigel Feldman MD Work Study Student: None Complication: None Pathology: Endometrial Scrapings, Endometrial polyp Procedure: The patient was put in the dorsal lithotomy position, scrubbed, and draped in the usual manner. A sterile speculum was inserted in the patient's vagina. The anterior lip of the cervix was grasped with a single tooth tenaculum. The cervix was dilated up to 5 mm, then the scope was inserted in the patient's uterus. Inspection revealed endometrial polyp. The Myosure Reach device was used; it was introduced through the operative channel and polypectomy done with no complications. The scope was then taken out from the uterine cavity, sharp curettings was carried on with minimal to moderate amount of tissues retrieved. At the end of the procedure, all instruments were taken out of the patient uterine and vaginal cavity. The single tooth tenaculum was removed and homeostasis was assured using pressure,. The patient tolerated the procedure well and was transferred to the PACU in a stable condition.
[2025-11-03 09:05] VITALS: BP 126/73; PULSE 52; RESP 14; TEMP 36.4; O2SAT 92
[2025-11-03 09:10] VITALS: BP 126/73; PULSE 60; RESP 18; O2SAT 94
[2025-11-03 09:15] VITALS: BP 123/78; PULSE 63; RESP 18; O2SAT 93
[2025-11-03 09:20] VITALS: BP 113/80; PULSE 53; RESP 15; TEMP 36.4; O2SAT 94
== END 2025-11-03 10:30 | disposition home or self-care (01) ==
PROVIDERS: PCP Internal Medicine; Visit Provider Obstetrics & Gynecology
PROC: 0UDB8ZZ Extraction of Endometrium, Via Natural or Artificial Opening Endoscopic (ICD-10-PCS; CPT 58558; principal; 2025-11-03 08:40)
DX: N95.0 Postmenopausal bleeding (principal); N84.1 Polyp of cervix uteri; N32.81 Overactive bladder; K21.9 Gastro-esophageal reflux disease without esophagitis; K76.0 Fatty (change of) liver, not elsewhere classified; G47.33 Obstructive sleep apnea (adult) (pediatric); E03.9 Hypothyroidism, unspecified; J45.909 Unspecified asthma, uncomplicated; J98.4 Other disorders of lung; F41.8 Other specified anxiety disorders; Z79.51 Long term (current) use of inhaled steroids; Z79.899 Other long term (current) drug therapy; Z99.89 Dependence on other enabling machines and devices; Z88.8 Allergy status to other drugs, medicaments and biological substances; Z98.51 Tubal ligation status; Z90.49 Acquired absence of other specified parts of digestive tract; Z98.890 Other specified postprocedural states; Z87.891 Personal history of nicotine dependence
CPT/HCPCS: 58558; 81025; 88305; J0131; J1100; J2003; J2405; J2704; J3010

== ENCOUNTER → 2025-11-03 06:29 | Outpatient (BNV) | payer MEDICARE, MEDICAID, SELFPAY | PROVIDERS: PCP Internal Medicine; Visit Provider Obstetrics & Gynecology | DX: N95.0 Postmenopausal bleeding (principal) | CPT/HCPCS: 58558 ==

== ENCOUNTER 2025-11-16 | Outpatient (REF) | payer MEDICARE, MEDICAID, SELFPAY ==
--- OUTSIDE RECORDS SUMMARY | 2025-12-21 13:37 | XMS_ITS | Clinical Summary ---
Author Organization [facility] Address [address] [place] [address] Phone Care Team Providers Care Tourist Guide Name Role Phone Name, Rhett GARZA Primary Care Provider [phone] Surgical History Surgery Date Site/Laterality Comments OTHER [...] of 2) 2017 COVID-19 Vaccine (1 - 2024- season) 2025 Influenza Vaccine (#1) 2025 2, 08/07/2011, 08/27/2010, Additional history exists Cholesterol Screening (Lipid Panel) 10/10/2025 HIV Screening 10/10/2025 Hepatitis C Screening 10/10/2025 Medicare Annual Wellness Visit 10/10/2025 Social Influencers of Health Screening 10/10/2025 Depression Screening 11/30/2025 RSV Immunization Adult Patients (1 - 1-dose [...] Insurance MEDICARE [place] - [place] Care Teams Tourist Guide Relationship Specialty Start Date End Date Name, MD Rhett [address] [place], [place] PCP - General 07/31/1991
== END 2025-11-16 00:01 | disposition home or self-care (01) ==
LOC: CF
PROVIDERS: PCP Internal Medicine; Visit Provider Obstetrics & Gynecology
DX: N99.820 Postprocedural hemorrhage of a genitourinary system organ or structure following a genitourinary system procedure (principal); N95.0 Postmenopausal bleeding
CPT/HCPCS: 99212

== ENCOUNTER 2025-11-16 08:40 | Outpatient (AMB) | payer MEDICARE, MEDICAID, SELFPAY ==
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
[2025-11-16 08:48] VITALS: BP 110/70; BMI 35.3
--- OUTSIDE RECORDS SUMMARY | 2025-11-16 09:10 | XMS_ITS | Clinical Summary ---
Author Organization [facility] Address [address] [place] [address] Phone Care Team Providers Care Metal Buffer Name Role Phone Name, Rhett GARZA Primary Care Provider [phone] Surgical History Surgery Date Site/Laterality Comments OTHER SURGICAL HISTORY PROCEDURE: LA LAPAROSCOPY SALPINGOSTOMY; COMMENT: one ovary remains OTHER [...] on file Sexual Orientation Not on file Plan of Treatment Health Maintenance Due Date [...] Insurance MEDICARE MEDICAID - [place] Care Teams Metal Buffer Relationship Specialty Start Date End Date Name, MD Rhett [address] [place], [place] PCP - General 07/31/1991
== END 2025-11-16 08:53 | disposition home or self-care (01) ==
LOC: HO.HWS 08:41
PROVIDERS: PCP Internal Medicine; Visit Provider Obstetrics & Gynecology
DX: N95.0 Postmenopausal bleeding (principal)
CPT/HCPCS: 99213